=== PATIENT | female | born 1945 | race Caucasian/White ===

== ENCOUNTER 2024-06-09 08:14 | Inpatient (IN) ==
--- OUTSIDE RECORDS SUMMARY | 2024-06-09 08:22 | External Medical Summary | Summary of Care ---
Author Name Unknown Organization [facility] Address [address] [place] [address] Phone [phone] Care Team Providers Care Refined Syrup Operator Name Role Phone Felix Chavez DO Primary Care Provider [phone] Reason for Visit * Reason Comments Follow Up Pt is here for rameshamelia apoorva checkup and has questions about her parkinson's. Encounter Details Date Type Department Care Team (Late st Contact Info) Description 04/22/2024 9:20 AM EST Office Visit Family Practice [facility] [place] [address] [facility] [place] [address] Felix [facility]avez [facility] [address] [facility] [address] IPMN (intraductal papillary mucinous neoplasm)*; Screening for depression; Parkinson's disease without fluctuating manifestations, unspecified whether dyskinesia present (HCC); Problem with family member being ill Allergies Active Allergy Reactions Criticality Noted Date Comments Penicillins Hives High 05/05/2001 documented as of this encounter (statuses as of 04/22/2024) Medications VITAMIN C 500 MG PO CAPS 1 tablet daily Activ e Calcium Carb-Cholecalcifer ol 600-800 MG-UNIT Oral Tablet Take 1 Tablet by mouth in the morning. Active B Complex-C (SUPER B COMPLEX/VITAMIN C) TABS Take 1 Tab by mouth daily. Active Darling 3 1000 MG Oral Capsule Take by mouth . A ctive Multi-Day Oral Tablet Take by mouth 1 Tablet in the morning. Active Probiotic Acidophilus BioBeads Oral Capsule Take by mouth 1 Capsule . Active Diclofenac Sodium 1 % External Gel (Voltaren)Indicati ons:Greater trochanteric bursitis of right hip,Hip pain, right Apply 2 g topically to affected area 3 times a day as needed for Pain, Moderate or Pain, Severe. 100 g 3 05/19/19 24 Active Additional Information Patient not taking.Reported on 04/22/2024 Carbidopa-Levodopa ER 25-100 MG Oral Tablet Extended Release (Sinemet CR)Indications:Par kinson's disease with dyskinesia and fluctuating manifestations (HCC) TAKE TWO TABLETS BY MOUTH AT 6:30AM AND 11:30AM. TAKE ONE TABLET BY MOUTH AT 4:30PM AND 9:30PM. 180 Tablet 5 03/29/20 24 Active documented as of this encounter (statuses as of 04/22/2024) Active Problems Problem Noted Date Diagnosed Date Problem with family member being ill 04/22/2024 Parkinson's disease 03/17/2018 IPMN (intraductal papillary mucinous neoplasm) 0 09/07/2017 documented as of this encounter (statuses as of 04/22/2024) Resolved Problems Problem Noted Date Diagnosed Date Resolved Date Injury of right ankle 10/17/20192022 Encounter for examination fo r normal comparison and control in clinical research program 06/22/2017 12/05/2019 Overview (08/20/2020): DO NOT DELETE [facility] DETECT Study: Project # [id number], Residential Sales Representative: Reid Dacosta, PhD. SUMMARY: Goal: Establish test characteristics (sensitivity, specificity, PPV, NPV) of a circulating tumor DNA (ctDNA)-based test for cancer. Hypothesis: Circulating tumor DNA (ctDNA) and elevated protein biomarkers (together, the marker panel) can be detected in asymptomatic individuals with early cancer. Specific Aim 1: Determine the prevalence of a positive marker panel test in a prospective clinical cohort of 10,000 asymptomatic women ages 65 to 75 years. Specific Aim 2: Determine the sensitivity, specificity, positive predictive value (PPV) and negative predictive value (NPV) of a marker panel test to identify histologically proven cancers that develop within 5-years of the marker panel evaluation. CONTACTS: During normal business hours, contact study staff at ; after hours Residential Sales Representative via the [facility] extractor operator solvent process . Please contact study team before resolving/deleting from patients problem list. Study phone number: [phone]. Diagnosis changed due to Research Module. Go to Snapshot for study details. Encounter for examination fo r normal comparison and control in clinical research program 06/22/2017 01/02/2022 Overview (08/20/2020): DO NOT DELETE - [facility] DETECT Study: Project # [id number], Residential Sales Representative: Jim Gracia, MS, MPH. SUMMARY: Goal: Establish test characteristics (sensitivity, specificity, PPV, NPV) of a circulating tumor DNA (ctDNA)-based test for cancer. - Hypothesis: Circulating tumor DNA (ctDNA) and elevated protein biomarkers (together, the marker panel) can be detected in asymptomatic individuals with early cancer. - Specific Aim 1: Determine the prevalence of a positive marker panel test in a prospective clinical cohort of 10,000 asymptomatic women ages 65 to 75 years. - Specific Aim 2: Determine the sensitivity, specificity, positive predictive value (PPV) and negative predictive value (NPV) of a marker panel test to identify histologically proven cancers that develop within 5-years of the marker panel evaluation. - CONTACTS: During normal business hours, contact study staff at ; after hours Residential Sales Representative via the [facility] hospital extractor operator solvent process . - Please contact study team before resolving/deleting from patients problem list. Study phone number: [phone]. Diagnosis changed due to Research Module. Go to Snapshot for study details. documented as of this encounter (statuses as of 04/22/2024) Immunizations Name Administration Dates Next Due COVID-19 mRNA, LNP-s, No Pre serve, 2-Dose Series (Pfizer) 07/12/2020,06/15/2020 Pneumococcal Conjugate Vacc, 13 Valent (Prevnar) 09/07/2017 Pneumococcal Polysaccharide PPV23 (Pneumovax) 05/06/2012 Seasonal Influenza Vac., MDV , IM, 0.5 mL (Fluzone) 02/22/2014,02/08/2013,05/14/2012 Seasonal Influenza, High Dos e, Trivalent, PF, IM (Fluzone HD) 02/16/2024 Seasonal Influenza, PF, 6 M & above, IM , (FluLaval or Fluzone) 03/17/2018 Seasonal Influenza, Quadriva lent Hd (Fluzone Hd) 03/03/2023,03/18/2022,05/24/2021 Seasonal Influenza, Quadriva lent Hd, 65+ Yrs 02/09/2020 Seasonal Influenza, Quadriva lent, No Preserve, IM 01/21/2016,04/05/2015 Seasonal Influenza, Trivalen t, Adjuvanted, 65+ YRS, PF, (Fluad) 04/04/2019 TDAP (age 10 and older)(Boostrix) 05/14/2012 documented as of this encounter Social History Tobacco Use Types Packs/Day Years Used Date Smoking Tobacco: Former Cigarettes 1 4 0 05/04/1963 - 05/04/1967 Smokeless Tobacco: Never Tobacco Cessation:Counseling Given: Not Answered Comments:Quit after college Alcohol Use Standard Drinks/Week Comments Yes 0 (1 standard drink = 0.6 oz pur e alcohol) 2 glasses of wine/night PHQ-2 Answer Date Recorded PHQ Adult Total Score 0 04/22/2024 Hunger Vital Sign Answer Date Recorded Worried About Running Out of Food in the Last Ye ar Not on file 02/11/2023 Within the past 12 months, t he food you bought just didn't last and you didn't have money to get more. Never true 02/11/2023 Childcare Answer Date Recorded Do you feel overwhelmed with taking care of a child, family member or friend? No 02/11/2023 Does your family need help f inding childcare? (Household - for ages 0-17 years) Not on file 02/11/2023 Clothing Answer Date Recorded Have you been unable to get clothing when it was really needed? No 02/11/2023 Is your family able to get c lothes or diapers when needed? (Household - for ages 0-17 years) Not on file 02/11/2023 Personal Safety Answer Date Recorded Do you feel unsafe or have concerns for your saf ety? No 02/11/2023 Do you have concerns for you r family's safety? (Household - for ages 0-17 years) Not on file 02/11/2023 Utilities Answer Date Recorded Do you have trouble paying y our heating, water, or electric bill? No 02/11/2023 Is your family able to pay t he heat, water, or electric bill? (Household - for ages 0-17 years) Not on file 02/11/2023 Does your family have access to good internet? (Household - for ages 0-17 years) Not on file 02/11/2023 Employment Status Answer Date Recorded Are you unemployed or without regular income? No 02/11/2023 Does the household have a re gular source of income? (Household - for ages 0-17 years) Not on file 02/11/2023 Social Connections Answer Date Recorded How often do you feel lonely or isolated from th ose around you? Never 02/11/2023 Financial Resource Strain Answer Date R ecorded Do you have any trouble payi ng for your medications, or do you think you might in the future? No 02/11/2023 Does your family have troubl e paying for medicine? (Household - for ages 0-17 years) Not on file 02/11/2023 Transportation Needs Answer Date Record ed READ ONLY Do you have troubl e getting a ride to medical visits or work? Never True 02/11/2023 Does your family have a hard time getting a ride to doctors visits? (Household - for ages 0-17 years) Not on file 02/11/2023 Has lack of transportation k ept you from medical appointments, meetings, work, or from getting things needed for daily living? Check all that apply. (Adult - for ages 18 years and over) Not on file 02/11/2023 Do you (or your family) have trouble finding or paying for a ride (transportation)? (Household - for ages 0-17 years) Not on file 02/11/2023 Housing Stability Answer Date Recorded Do you currently live in a s helter or have no steady place to sleep at night? No 02/11/2023 READ ONLY Do you think you a re at risk of becoming homeless? No 02/11/2023 Does your family worry about paying for your home or becoming homeless? (Household - for ages 0-17 years) Not on file 1 Are you homeless or worried that you might be in the future? (Adult - for ages 18 years and over) Not on file Are you (or your family) dago eless or worried that you might be in the future? (Household - for ages 0-17 years) Not on file Food Insecurity Answer Date Recorded Do you need food for this week? No 02/11/2023 Are you able to get enough f ood for your family? (Household - for ages 0-17 years) Not on file 02/11/2023 Does your family need food t his week? (Household - for ages 0-17 years) Not on file 02/11/2023 Do you always have enough fo od for your family? (Household - for ages 0-17 years) Not on file 02/11/2023 Comments No Sex and Gender Information Value Date Recorded Sex Assigned at Female 02/11/2023 8:51 AM EDT Legal Sex Female 5:43 AM EST Gender Identity Female 02/11/2023 8:51 AM EDT Sexual Orientation Straight 02/11/2023 8: 51 AM EDT documented as of this encounter Last Filed Vital Signs Vital Sign Reading Time Taken Comments Blood Pressure 136/78 04/22/2024 9:41 AM EST Pulse 79 04/22/2024 9:41 AM EST Temperature 37.1 C (98.8 F) 04/22/2024 9:41 AM ES T Respiratory Rate - - Oxygen Saturation 92% 04/22/2024 9:41 AM EST Inhaled Oxygen Concentration - - Weight 66.4 kg (146 lb 6.4 oz) 04/22/2024 9:41 A M EST Height 157.5 cm (5' 2") 04/22/2024 9:41 AM EST Body Mass Index 26.78 04/22/2024 9:41 AM EST documented in this encounter Progress Notes * Felix Chavez, DO - 04/22/2024 9:47 AM EST Subjective: Camron Willingham is a 78 year old female. Chief Complaint Patient presents with Follow Up Pt is here for routine checkup and has questions about her parkinson's. HPI: Pt here in follow-up. Over the summer she seemed to be off more with PArkinson's. They decided to try Rytary but it just didn't work for her. She was tingling and nausea. Her hand tremor was worse in her R hand. Got switched back just in time for Thanksgiving. She is taking 2,2,2, and 1. HAs not had issues getting it. We discussed if she wants a second opinion I'm happy to send her wherever she wishes. Would probably need to travel Her is not doing well. HAs to have a replacement surgery for a stent. Her mood is effected by this. He tries to be cheerful. 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 Still has good friends and social interaction. Remeron helped some with her sleep and mood but made her constipated. It has been a 6 hour sleep for a long tme. Not miserable with sleep. Can fall back asleep sometimes after 4 AM dose of Sinemet. Does not want colonoscopy at this point, will consider in the future. Will schedule MRI 6 momnths from now. She is working with PT every 6 weeks. Avoids certain twisting. PMHx, meds, and allergies reviewed Patient Active Problem List Diagnosis IPMN (intraductal papillary mucinous neoplasm) Parkinson's disease (HCC) Problem with family member being ill Current Outpatient Medications Medication Sig Dispense Refill VITAMIN C 500 MG PO CAPS 1 tablet daily Calcium Carb-Cholecalciferol 600-800 MG-UNIT Oral Tablet Take 1 Tablet by mouth in the morning. B Complex-C (SUPER B COMPLEX/VITAMIN C) TABS Take 1 Tab by mouth daily. Darling 3 1000 MG Oral Capsule Take by mouth . Multi-Day Oral Tablet Take by mouth 1 Tablet in the morning. Probiotic Acidophilus BioBeads Oral Capsule Take by mouth 1 Capsule . Carbidopa-Levodopa ER 25-100 MG Oral Tablet Extended Release (Sinemet CR) TAKE TWO TABLETS BY MOUTHAT 6:30AM AND 11:30AM. TAKE ONE TABLET BY MOUTH AT 4:30PM AND 9:30PM. 180 Tablet 5 Diclofenac Sodium 1 % External Gel (Voltaren) Apply 2 g topically to affected area 3 times a day asneeded for Pain, Moderate or Pain, Severe. (Patient not taking: Reported on 04/22/2024) 100 g 3 No current facility-administered medications for this visit. Review of patient's allergies indicates: Allergen Reactions Penicillins Hives OBJECTIVE: BP 136/78 (BP Site: Left Arm, BP Position: Sitting, BP Cuff Size: Regular) | Pulse 79 | Temp 98.8 F (37.1 C) (Tympanic) | Ht 5' 2" (1.575 m) | Wt 146 lb 6.4 oz (66.4 kg) | SpO2 92% | BMI 26.78 kg/m | BSA 1.7 m Estimated body mass index is 26.78 kg/m as calculated from the following: Height as of this encounter: 5' 2" (1.575 m). Weight as of this encounter: 146 lb 6.4 oz (66.4 kg). BP Readings from Last 3 Encounters: 04/22/24 136/78 03/22/24 134/80 02/16/24 146/83 Wt Readings from Last 3 Encounters: 04/22/24 146 lb 6.4 oz (66.4 kg) 03/22/24 147 lb 4.8 oz (66.8 kg) 02/16/24 145 lb 6.4 oz (66 kg) ROS: Negative except for above PHYSICAL EXAM: General: alert, healthy, and no distress Head: Normocephalic, No masses, lesions, tenderness or abnormalities Heart: regular rate & rhythm, no murmur, and no gallops Lungs: chest symmetric with normal AP diameter, no chest deformities noted, no chest wall tenderness, lungs clear to auscultation ASSESSMENT/Plan IPMN (intraductal papillary mucinous neoplasm) (Primary) Screening for depression - DEPRESSION SCREENING PERFORMED Parkinson's disease without fluctuating manifestations, unspecified whether dyskinesia present (HCC) Problem with family member being ill I spent a total of 30 minutes on the date of service in preparation, delivery, and documentation ofthe care provided to this patient, excluding any time spent on the performance of any procedure or separately billable services. We discussed offers if she wants a second opinion or needs more Sinemet. We also discussed options to help her mood. Currently she is doing alright. The above was discussed and understanding was expressed. Felix Chavez DO documented in this encounter Nursing Notes * Raul Hinton CMA - 04/22/2024 9:44 AM EST The patient has been properly identified by confirmation of name and date of . Chief Complaint Patient presents with Follow Up Pt is here for routine checkup and has questions about her parkinson's. documented in this encounter Plan of Treatment Upcoming Encounters Date Type Department Care Team (Late st Contact Info) Description 09/20/2024 10:00 AM EDT Office Visit Neurology [facility] [address] [place] [address] Jean Claude Le MD [address] [place] [address] 11/28/2024 9:20 AM EDT Office Visit Family Practice [facility] [address] [place] [address] Felix Chavez DO [address] [facility] [place] [address] Scheduled Procedures Name Priority Associated Diagnoses Date/Ti me COLONOSCOPY FLEXIBLE PROXIMA L DIAGNOSTIC Recall History of colon polyps Family history of colon cancer Health Maintenance Due Date Last Done Comments Zoster Vaccines (1 of 2) 09/12/1993 Adult Wellness Visit 09/12/2009 DTap/Tdap Vaccines (2 - Td or Tdap) 05/14/2022 05/14/2012 COVID-19 Vaccine (3 - season) 2024 07/12/2020, 06/15/2020 Colonoscopy 05/11/2024 05/11/2019, 12/2019, 05/25/2013, Additional history exists Depression Screening 04/22/2025 04/22/2024, 09/27/19 20 DXA Scan 12/05/2027 12/04/2020, 02/03, 03/02/2013 Pneumococcal Vaccine: 65+ Years Completed 09/07/2017, 05/06/2012 RETIRED - COLONOSCOPY-EVERY 5 YRS AGES 18-100 Discontinued 05/11/2019, 05/11/2019, 05/25/2013, Additional history exists Influenza Vaccine (FLU shot) Completed 02/16/2024, 03/03/2023, 03/18/2022, Additional history exists HPV (Gardasil) Vaccine Aged Out No lo nger eligible based on patient's age to complete this topic Hepatitis B Vaccine Aged Out No longe r eligible based on patient's age to complete this topic MENINGOCOCCAL (MENACTRA/MENVEO) Aged Out No longer eligible based on patient's age to complete this topic documented as of this encounter Medical Devices Implanted Type Area Biofuels Manager Device Identifier Shelf Expiration Date Model / Serial / Lot Lens Intraoc 21.0 - [id number] - [id number] Implanted:Qty: 1 on 06/10/2016 by Efren Pham MD at [facility] Right: Eye [employer] 01/01/2021 [id number] / [id number] / [id number] Lens Intraoc 21.0 - [id number] - [id number] Implanted:Qty: 1 on 06/24/2016 by Efren Pham MD at [facility] Left: Eye [employer] 01/31/2021 [id number] / [id number] / [id number] documented as of this encounter Visit Diagnoses Diagnosis IPMN (intraductal papillary mucinous neoplasm)- Primary Neoplasm of unspecified nature of digestive system Screening for depression Parkinson's disease without fluctuating manifestations, unspecified whether dyskinesia present (HCC) Problem with family member being ill Other health problem within the family documented in this encounter Advance Directives * Full Code (Latest Code Status on File) Date Activated Date Inactivated Comments 06/24/2016 8:59 AM 06/24/2016 2:54 PM This order r eflects the patients wishes and were consensually agreed upon. * Full Code Date Activated Date Inactivated Comments 06/10/2016 8:07 AM 06/10/2016 3:41 PM This order ref lects the patients wishes and were consensually agreed upon. Care Teams Refined Syrup Operator Relationship Specialty Start Date End Date Felix Chavez DO [address] [place] [address] PCP - General Family Medicine 07/18/16 documented as of this encounter
--- OUTSIDE RECORDS SUMMARY | 2024-06-09 08:22 | External Medical Summary | Summary of Care ---
Author Name Unknown Organization [facility] Address [address] [place] [address] Phone [phone] Care Team Providers Care Classified Ad Taker Name Role Phone Felix Chavez DO Primary Care Provider [phone] Encounter Details Date Type Department Care Team (Late st Contact Info) Description 05/26/2024 Population Health External Data Unspecified Department Allergies Active Allergy Reactions Criticality Noted Date Comments Penicillins Hives High 05/05/2001 documented as of this encounter (statuses as of 05/26/2024) Medications VITAMIN C 500 MG PO CAPS 1 tablet daily Activ e Calcium Carb-Cholecalcifer ol 600-800 MG-UNIT Oral Tablet Take 1 Tablet by mouth in the morning. Active B Complex-C (SUPER B COMPLEX/VITAMIN C) TABS Take 1 Tab by mouth daily. Active [place] 3 1000 MG Oral Capsule Take by [...] as of this encounter (statuses as of 05/26/2024) Active Problems Problem Noted Date Diagnosed Date Problem with family member being ill 04/22/2024 Parkinson's disease 03/17/2018 IPMN (intraductal papillary mucinous neoplasm) 0 09/07/2017 documented as of this encounter (statuses as of 05/26/2024) Resolved Problems Problem Noted Date Diagnosed Date Resolved Date Injury of right ankle 10/17/20192022 Encounter for examination fo r normal comparison and control in clinical research program 06/22/2017 12/05/2019 Overview (08/20/2020): DO NOT DELETE [facility] DETECT Study: Project # [id number], Color Laboratory Technician: Reid Dacosta, PhD. SUMMARY: Goal: Establish test [...] contact study staff at ; after hours Color Laboratory Technician via the [facility] thickener operator . Please contact study team before resolving/deleting from patients problem list. Study phone number: [phone]. Diagnosis changed due to Research Module. Go to Snapshot for study details. Encounter for examination fo r normal comparison and control in clinical research program 06/22/2017 01/02/2022 Overview (08/20/2020): DO NOT DELETE [facility] DETECT Study: Project # [id number], Color Laboratory Technician: Jim Gracia, MS, MPH. SUMMARY: Goal: Establish [...] contact study staff at ; after hours Color Laboratory Technician via the [facility] thickener operator . - Please contact study team before resolving/deleting from patients problem list. Study phone number: [phone]. Diagnosis changed due to Research Module. Go to Snapshot for study details. documented as of this encounter (statuses as of 05/26/2024) Immunizations Name Administration Dates Next Due COVID-19 mRNA, LNP-s, No Pre serve, 2-Dose Series ([employer]) 07/12/2020,06/15/2020 Pneumococcal Conjugate Vacc, 13 Valent (Prevnar) [...] 0 [birth year]04/1965 - 05/04/1967 Smokeless Tobacco: Never Comments:Quit after college Alcohol Use Standard Drinks/Week Comments Yes 0 (1 standard drink = 0.6 oz pur e alcohol) 2 glasses of wine/night PHQ-2 Answer Date Recorded PHQ Adult Total Score 0 04/22/2024 Hunger Vital Sign Answer Date Recorded Worried About Running Out of Food in the Last Ye ar Not on file 04/22/2024 Within the past 12 months, t he food you bought just didn't last and you didn't have money to get more. Never true 04/22/2024 Childcare Answer Date Recorded Do you feel overwhelmed with taking care of a child, family member or friend? Yes 04/22/2024 Does your family need help f inding childcare? (Household - for ages 0-17 years) Not on file 04/22/2024 Clothing Answer Date Recorded Have you been unable to get clothing when it was really needed? No 04/22/2024 Is your family able to get c lothes or diapers when needed? (Household - for ages 0-17 years) Not on file 04/22/2024 Personal Safety Answer Date Recorded Do you feel unsafe or have concerns for your saf ety? No 04/22/2024 Do you have concerns for you r family's safety? (Household - for ages 0-17 years) Not on file 04/22/2024 Utilities Answer Date Recorded Do you have trouble paying y our heating, water, or electric bill? No 04/22/2024 Is your family able to pay t he heat, water, or electric bill? (Household - for ages 0-17 years) Not on file 04/22/2024 Does your family have access to good internet? (Household - for ages 0-17 years) Not on file 04/22/2024 Employment Status Answer Date Recorded Are you unemployed or without regular income? Ye s 04/22/2024 Does the household have a re gular source of income? (Household - for ages 0-17 years) Not on file 04/22/2024 Social Connections Answer Date Recorded How often do you feel lonely or isolated from th ose around you? Never 04/22/2024 Financial Resource Strain Answer Date R ecorded Do you have any trouble payi ng for your medications, or do you think you might in the future? Yes 04/22/2024 Does your family have troubl e paying for medicine? (Household - for ages 0-17 years) Not on file 04/22/2024 Transportation Needs Answer Date Record ed Do you have trouble getting a ride to medical visits or work? (Adult - for ages 18 years and over) Not on file 04/22/2024 Does your family have a hard time getting a ride to doctors visits? (Household - for ages 0-17 years) Not on file 04/22/2024 Has lack of transportation k ept you from medical appointments, meetings, work, or from getting things needed for daily living? Check all that apply. No 04/22/2024 Do you (or your family) have trouble finding or paying for a ride (transportation)? (Household - for ages 0-17 years) Not on file 04/22/2024 Housing Stability Answer Date Recorded Do you currently live in a s helter or have no steady place to sleep at night? No 04/22/2024 Do you think you are at risk of becoming homeless? (Adult - for ages 18 years and over) Not on file 04/22/2024 Does your family worry about paying for your home or becoming homeless? (Household - for ages 0-17 years) Not on file 1 06/23/2023 Are you homeless or worried that you might be in the future? No 04/22/2024 Are you (or your family) dago eless or worried that you might be in the future? (Household - for ages 0-17 years) Not on file Food Insecurity Answer Date Recorded Do you need food for this week? No 04/22/2024 Are you able to get enough f ood for your family? (Household - for ages 0-17 years) Not on file 04/22/2024 Does your family need food t his week? (Household - for ages 0-17 years) Not on file 04/22/2024 Do you always have enough fo od for your family? (Household - for ages 0-17 years) Not on file 04/22/2024 Comments No Sex and Gender Information Value Date Recorded Sex Assigned at Female 02/11/2023 8:51 AM EDT Legal Sex Female 5:43 AM EST Gender Identity Female 02/11/2023 8:51 AM EDT Sexual Orientation Straight 02/11/2023 8: 51 AM EDT documented as of this encounter Plan of Treatment Upcoming Encounters Date Type Department Care Team (Late st Contact Info) Description 09/20/2024 10:00 AM EDT Office Visit Neurology [facility] [address] [facility] [place] [address] Jean Claude Le MD [address] [place] [address] 11/28/2024 9:20 AM EDT Office Visit Family Practice [facility] [address] [facility] [place] [address] Felix Chavez DO [address] [facility] [place] [address] Scheduled Procedures Name Priority Associated Diagnoses Date/Ti [...] 05/25/2013, Additional history exists Depression Screening 04/22/2025 04/22/2024 DXA Scan 12/05/2027 12/04/2020, 02/03, 03/02/2013 Pneumococcal Vaccine: 50+ Years Completed 09/07/2017, 05/06/2012 RETIRED - COLONOSCOPY-EVERY [...] this encounter Medical Devices Implanted Type Area Solutions Developer Device Identifier Shelf Expiration Date Model / Serial / Lot Lens Intraoc 21.0 - [id number] - [id number] Implanted:Qty: 1 on 06/10/2016 by Efren Pham MD at OR [facility] Right: Eye [employer]CH [employer] LOMB 01/01/2021 [id number] / [id number] / [id number] Lens Intraoc 21.0 - [id number] - [id number] Implanted:Qty: 1 on 06/24/2016 by Efren Pham MD at OR [facility] Left: Eye BAUSCH [employer] LOMB 01/31/2021 [id number] / [id number] / [id number] documented as of this encounter Advance Directives * Full Code (Latest Code Status on File) Date Activated Date Inactivated Comments 06/24/2016 8:59 AM 06/24/2016 2:54 PM This order r eflects the patients wishes and were consensually agreed upon. * Full Code Date Activated Date Inactivated Comments 06/10/2016 8:07 AM 06/10/2016 3:41 PM This order ref lects the patients wishes and were consensually agreed upon. Care Teams Classified Ad Taker Relationship Specialty Start Date End Date Felix Chavez DO [address] [place] [address] PCP - General Family Medicine 07/18/16 documented as of this encounter
--- OUTSIDE RECORDS SUMMARY | 2024-06-09 08:22 | External Medical Summary | Summary of Care ---
Author Name Unknown Organization [facility] Address [address] [place] [address] Phone [phone] Care Team Providers Care Legal Summer Intern Name Role Phone Felix Chavez DO Primary Care Provider [phone] Reason for Visit * Reason Comments Follow Up Pt is here for rameshamelia apoorva checkup and has questions about her parkinson's. Encounter Details Date Type Department Care Team (Late st Contact Info) Description 04/22/2024 9:20 AM EST Office Visit Family Practice [facility] [place] [address] [facility] [place] [address] [facility] [address] IPMN (intraductal papillary mucinous neoplasm)*; Screening for depression; Parkinson's disease without fluctuating manifestations, unspecified whether dyskinesia present (HCC); Problem with family member being ill Allergies Active Allergy Reactions Criticality Noted Date Comments Penicillins Hives High 05/05/2001 documented as of this encounter (statuses as of 05/25/2024) Medications VITAMIN C 500 MG PO CAPS 1 tablet daily Activ e Calcium Carb-Cholecalcifer ol 600-800 MG-UNIT Oral Tablet Take 1 Tablet by mouth in the morning. Active B Complex-C (SUPER B COMPLEX/VITAMIN C) TABS Take 1 Tab by mouth daily. Active [place] 3 1000 MG Oral Capsule Take by [...] as of this encounter (statuses as of 05/25/2024) Active Problems Problem Noted Date Diagnosed Date Problem with family member being ill 04/22/2024 Parkinson's disease 03/17/2018 IPMN (intraductal papillary mucinous neoplasm) 0 09/07/2017 documented as of this encounter (statuses as of 05/25/2024) Resolved Problems Problem Noted Date Diagnosed Date Resolved Date Injury of right ankle 10/17/20192022 Encounter for examination fo r normal comparison and control in clinical research program 06/22/2017 12/05/2019 Overview (08/20/2020): DO NOT DELETE [facility] DETECT Study: Project # [id number], Product Distribution Specialist: Reid Dacosta, PhD. SUMMARY: Goal: Establish test [...] contact study staff at ; after hours Product Distribution Specialist via the [facility] telephone operator . Please contact study team before resolving/deleting from patients problem list. Study phone number: [phone]. Diagnosis changed due to Research Module. Go to Snapshot for study details. Encounter for examination fo r normal comparison and control in clinical research program 06/22/2017 01/02/2022 Overview (08/20/2020): DO NOT DELETE - [facility] DETECT Study: Project # [id number], Product Distribution Specialist: Jim Gracia, MS, MPH. SUMMARY: Goal: Establish [...] contact study staff at ; after hours Product Distribution Specialist via the [facility] telephone operator . - Please contact study team before resolving/deleting from patients problem list. Study phone number: [phone]. Diagnosis changed due to Research Module. Go to Snapshot for study details. documented as of this encounter (statuses as of 05/25/2024) Immunizations Name Administration Dates Next Due COVID-19 [...] TABS Take 1 Tab by mouth daily. [place] 3 1000 MG Oral Capsule Take by [...] 09/20/2024 10:00 AM EDT Office Visit Neurology [facility] [address] [facility] [place] [address] Jean Claude Le MD [address] [place] [address] 11/28/2024 9:20 AM EDT Office Visit Family Practice [facility] [address] [facility] [place] [address] Felix Chavez DO [address] [facility] [place] [address] Scheduled Procedures Name Priority Associated Diagnoses Date/Ti me COLONOSCOPY FLEXIBLE PROXIMA L DIAGNOSTIC Recall History of colon polyps Family history of colon cancer Health Maintenance Due Date Last Done Comments Zoster Vaccines (1 of 2) 09/12/1993 Adult Wellness Visit 09/12/2009 DTap/Tdap Vaccines (2 - Td or Tdap) 05/14/2022 05/14/2012 COVID-19 Vaccine ( - season) 2024 07/12/2020, 06/15/2020 Colonoscopy 05/11/2024 [...] this encounter Medical Devices Implanted Type Area Cleat Layer Device Identifier Shelf Expiration Date Model / Serial / Lot Lens Intraoc 21.0 - [id number] - [id number] Implanted:Qty: 1 on 06/10/2016 by Efren Pham MD at OR [facility] Right: Eye [employer] LOMB 01/01/2021 [id number] / [id number] / [id number] Lens Intraoc 21.0 - [id number] - [id number] Implanted:Qty: 1 on 06/24/2016 by Efren Pham MD at OR [facility] Left: Eye BAUSCH [employer] LOMB 01/31/2021 [id number] / [id number] / [id number] documented as of this encounter Visit Diagnoses [...] and were consensually agreed upon. Care Teams Legal Summer Intern Relationship Specialty Start Date End Date Felix Chavez DO [address] [place] [address] PCP - General Family Medicine 07/18/16 documented as of this encounter
--- OUTSIDE RECORDS SUMMARY | 2024-06-09 08:23 | External Medical Summary | Summary of Care ---
Author Name Unknown Organization [facility] Address [address] [place] [address] Phone [phone] Care Team Providers Care Color Artist Name Role Phone Felix Chavez Primary Care Provider [phone] Encounter Details Date Type Department Care Team (Late st Contact Info) Description 03/28/2024 Orders Only Outcomes Research Department [address] [place], [place] [id number] Tatiana Dong CHRA MyCode Research Other*[id number] Allergies Active Allergy Reactions Criticality Noted Date Comments Penicillins Hives High 05/05/2001 documented as of this encounter (statuses as of 03/28/2024) Medications VITAMIN C 500 MG PO CAPS 1 tablet daily Active Calcium Carb-Cholecalcifer ol 600-800 MG-UNIT Oral Tablet Take 1 Tablet by mouth in the morning. Active B Complex-C (SUPER B COMPLEX/VITAMIN C) TABS Take 1 Tab by mouth daily. Active [place] 3 1000 MG Oral Capsule Take by mouth . Active Multi-Day Oral Tablet Take by mouth 1 Tablet in the morning. Active Probiotic Acidophilus BioBeads Oral Capsule Take by mouth 1 Capsule . Active Diclofenac Sodium 1 % External Gel (Voltaren)Indicati ons:Greater trochanteric bursitis of right hip,Hip pain, right Apply 2 g topically to affected area 3 times a day as needed for Pain, Moderate or Pain, Severe. 100 g 3 4 Active [place]yt[place] 23.75-95 MG Oral Capsule Extended Release (Carbidopa-Levodop a ER)Indications:Par kinson's disease without dyskinesia, with fluctuating manifestations (HCC) Take 3 capsules per mouth 3 times a day at 6:00 a.m.-2:00 p.m.-9:30 p.m. 810 Capsule 3 4 Active documented as of this encounter (statuses as of 03/28/2024) Active Problems Problem Noted Date Diagnosed Date Parkinson's disease 03/17/2018 IPMN (intraductal papillary mucinous neoplasm) 0 09/07/2017 documented as of this encounter (statuses as of 03/28/2024) Resolved Problems Problem Noted Date Diagnosed Date Resolved Date Injury of right ankle 10/17/20192022 Encounter for examination fo r normal comparison and control in clinical research program 06/22/2017 12/05/2019 Overview (08/20/2020): DO NOT DELETE [facility] DETECT Study: Project # [id number], Cake Wringer: Reid Dacosta, PhD. SUMMARY: Goal: Establish test [...] contact study staff at ; after hours Cake Wringer via the [facility] wire coating operator metal . Please contact study team before resolving/deleting from patients problem list. Study phone number: [phone]. Diagnosis changed due to Research Module. Go to Snapshot for study details. Encounter for examination fo r normal comparison and control in clinical research program 06/22/2017 01/02/2022 Overview (08/20/2020): DO NOT DELETE [facility] DETECT Study: Project # [id number], Cake Wringer: Jim Gracia, MS, MPH. SUMMARY: Goal: Establish [...] contact study staff at ; after hours Cake Wringer via the [facility] hospital wire coating operator metal . - Please contact study team before resolving/deleting from patients problem list. Study phone number: [phone]. Diagnosis changed due to Research Module. Go to Snapshot for study details. documented as of this encounter (statuses as of 03/28/2024) Immunizations Name Administration Dates Next Due COVID-19 [...] glasses of wine/night PHQ-2 Answer Date Recorded PHQ-2 Score 2 10/02/2019 Hunger Vital Sign Answer Date Recorded Worried [...] 9:20 AM EST Office Visit Family Practice [facility] [address] [place] [address] Felix Chavez, DO [address] [facility] [place] [address] 09/20/2024 10:00 AM EDT Office Visit Neurology [facility] [address] [facility] [place] [address] Jean Claude Le MD [address] [place], [place] [id number] Scheduled Orders Name Type Priority Associated Diagnoses Orde r Schedule MYCODE SUBSEQUENT ADULT Lab Routine MyCode Research Other*[id number] Every 6 Months for 2 Occurrences starting 03/28/2024 until 04/17/2025 Scheduled Procedures Name Priority Associated Diagnoses Date/Ti me COLONOSCOPY FLEXIBLE PROXIMA L DIAGNOSTIC Recall History of colon polyps Family history of colon cancer Health Maintenance Due Date Last Done Comments Zoster Vaccines (1 of 2) 09/12/1993 Adult Wellness Visit 09/12/2009 Depression Screening 09/26/2020 09/27/2019 DTap/Tdap Vaccines (2 - Td or Tdap) 05/14/2022 05/14/2012 COVID-19 Vaccine ( - season) 2024 07/12/2020, 06/15/2020 Colonoscopy 05/11/2024 05/11/2019, 12/2019, 05/25/2013, Additional history exists DXA Scan 12/05/2027 12/04/2020, 02/03, 03/02/2013 Pneumococcal [...] this encounter Medical Devices Implanted Type Area Manager Medicare Marketing Device Identifier Shelf Expiration Date Model / Serial / Lot Lens Intraoc 21.0 - [id number] - [id number] Implanted:Qty: 1 on 06/10/2016 by Efren Pham MD at OR [facility] Right: Eye [employer]CH [employer] LOMB 01/01/2021 [id number] / [id number] / [id number] Lens Intraoc 21.0 - [id number] - [id number] Implanted:Qty: 1 on 06/24/2016 by Efren Pham MD at OR [facility] Left: Eye BAUSCH & LOMB 01/31/2021 [id number] / [id number] / [id number] documented as of this encounter Visit Diagnoses Diagnosis MyCode Research Other*[id number] documented in this encounter Advance Directives * [...] and were consensually agreed upon. Care Teams Color Artist Relationship Specialty Start Date End Date Felix Chavez DO [address] [place] [address] PCP - General Family Medicine 07/18/16 documented as of this encounter
--- OUTSIDE RECORDS SUMMARY | 2024-06-09 08:23 | External Medical Summary | Summary of Care ---
Author Name Unknown Organization [facility] Address [address] [place] [address] Phone [phone] Care Team Providers Care Atmospheric Physicist Name Role Phone Felix Moore DO Primary Care Provider [phone] Reason for Visit * Reason Comments Follow Up Encounter Details Date Type Department Care Team (Latest Contact Info) Description 03/22/2024 10:00 AM EST Office Visit Neurology [facility] [address] [place], [place] [id number] Jean Claude Le MD [address] [place] [address] Parkinson's disease without dyskinesia, with fluctuating manifestations (HCC)* Allergies Active Allergy Reactions Criticality Noted Date Comments Penicillins Hives High 05/05/2001 documented as of this encounter (statuses as of 03/22/2024) Medications VITAMIN C 500 MG PO CAPS 1 tablet daily Active Calcium Carb-Cholecalcifer ol 600-800 MG-UNIT Oral Tablet Take 1 Tablet by mouth in the morning. Active B Complex-C (SUPER B COMPLEX/VITAMIN C) TABS Take 1 Tab by mouth daily. Active Hope 3 1000 MG Oral Capsule Take by [...] Severe. 100 g 3 05/19/19 24 Active Rytary 23.75-95 MG Oral Capsule Extended Release (Carbidopa-Levodop a ER)Indications:Par kinson's disease without dyskinesia, with fluctuating manifestations (HCC) Take 3 capsules per mouth 3 times a day at 6:00 a.m.-2:00 p.m.-9:30 p.m. 810 Capsule 3 03/22/20 24 Active Mirtazapine 15 MG Oral Tablet (Remeron)Indicatio ns:Primary insomnia Take 1 Tablet by mouth at bedtime. 30 Tablet 5 09/16/19 24 024 Discontin ued(Medic ation List Clean Up) Carbidopa-Levodopa ER 25-100 MG Oral Tablet Extended Release (Sinemet CR)Indications:Par kinson's disease (HCC),Drug-induced nausea and vomiting TAKE TWO TABLETS BY MOUTH AT 6:30AM AND 11:30AM. TAKE ONE TABLET BY MOUTH AT 4:30PM AND 9:30PM. 180 Tablet 5 02/12/20 24 024 Discontin ued(Medic ation/Dos e Changed) documented as of this encounter (statuses as of 03/22/2024) Active Problems Problem Noted Date Diagnosed Date Parkinson's disease 03/17/2018 IPMN (intraductal papillary mucinous neoplasm) 0 09/07/2017 documented as of this encounter (statuses as of 03/22/2024) Resolved Problems Problem Noted Date Diagnosed Date Resolved Date Injury of right ankle 10/17/20192022 Encounter for examination fo r normal comparison and control in clinical research program 06/22/2017 12/05/2019 Overview (08/20/2020): DO NOT DELETE [facility] [place] DETECT Study: Project # [id number], Seafood Clerk: Reid Dacosta, PhD. SUMMARY: Goal: Establish test [...] contact study staff at ; after hours Seafood Clerk via the [facility] well reactivator operator . Please contact study team before resolving/deleting from patients problem list. Study phone number: [phone]. Diagnosis changed due to Research Module. Go to Snapshot for study details. Encounter for examination fo r normal comparison and control in clinical research program 06/22/2017 01/02/2022 Overview (08/20/2020): DO NOT DELETE - [facility] [place] NITA Study: Project # [id number], Seafood Clerk: Jim Gracia, MS, MPH. SUMMARY: Goal: Establish [...] contact study staff at ; after hours Seafood Clerk via the [facility] hospital well reactivator operator . - Please contact study team before resolving/deleting from patients problem list. Study phone number: [phone]. Diagnosis changed due to Research Module. Go to Epoq for study details. documented as of this encounter (statuses as of 03/22/2024) Immunizations Name Administration Dates Next Due COVID-19 [...] y our heating, water, or electric bill? (Adult - for ages 18 years and over) Not on file 02/12/2024 Is your family able to pay t he heat, water, or electric bill? (Household - for ages 0-17 years) Not on file 02/12/2024 Does your family have access to good internet? (Household - for ages 0-17 years) Not on file 02/12/2024 Employment Status Answer Date Recorded Are you unemployed or without regular income? No 02/11/2023 Does the household have a re gular source of income? (Household - for ages 0-17 years) Not on file 02/11/2023 Social Connections Answer Date Recorded How often do you feel lonely or isolated from those around you? (Adult - for ages 18 years and over) Not on file 02/12/2024 Financial Resource Strain Answer Date R ecorded [...] Sign Reading Time Taken Comments Blood Pressure 134/80 03/22/2024 9:59 AM EST Pulse 117 03/22/2024 9:59 AM EST Temperature 36.1 C (97 F) 03/22/2024 9:59 AM EST Respiratory Rate 16 03/22/2024 9:59 AM EST Oxygen Saturation 96% 03/22/2024 9:59 AM EST Inhaled Oxygen Concentration - - Weight 66.8 kg (147 lb 4.8 oz) 03/22/2024 9:59 A M EST Height - - Body Mass Index 26.94 11/13/2023 10:00 AM EDT documented in this encounter Progress Notes * Jean Claude Le MD - 03/22/2024 10:08 AM EST 03/22/2024 10:11 AM Camron Maulik 78 year old female REF: ROSE MOORE [address] [place] [address] (office) [phone] (fax) Asked by Felix Moore DO to render opinion regarding treatment Parkinson's CC: Chief Complaint Patient presents with Follow Up HPI: The patient was last seen 6 months ago for her Parkinson's. She is now having any condition for almost 9 years. We continued to have her on slow release 50/200 at 6:30 a.m. and 11:30 a.m. and 25/100 at 4:30 p.m. and 9:00 p.m.. Her last carbidopa levodopa was 3-1/2 hours ago. She has no hallucin ations. We held off with adding rasagiline for now. She was unable to tolerate entacapone. We have not tried her on Rytary yet. Her lumbar regions is still hurtful. Cannot do core exercises. Pain on the R side. Had PT once a month. 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 Steroid shots were like a miracle for her. Shehas noticed overall increase in the tremors. Also notices some difficulty with going upstairs, getsfatigued easily. Occasional word-finding difficulties but no major cognitive issues. PAST MEDICAL HISTORY: Patient Active Problem List Diagnosis Date Noted Parkinson's disease (HCC) [G20.A1] 03/17/2018 IPMN (intraductal papillary mucinous neoplasm) [D49.0] 09/07/2017 MEDICATIONS: Current Outpatient Medications Medication Sig Dispense Refill VITAMIN C 500 MG PO CAPS 1 tablet daily Calcium Carb-Cholecalciferol 600-800 MG-UNIT Oral Tablet Take 1 Tablet by mouth in the morning. B Complex-C (SUPER B COMPLEX/VITAMIN C) TABS Take 1 Tab by mouth daily. Hope 3 1000 MG Oral Capsule Take by mouth . Multi-Day Oral Tablet Take by mouth 1 Tablet in the morning. Probiotic Acidophilus BioBeads Oral Capsule Take by mouth 1 Capsule . Diclofenac Sodium 1 % External Gel (Voltaren) Apply 2 g topically to affected area 3 times a day asneeded for Pain, Moderate or Pain, Severe. 100 g 3 Carbidopa-Levodopa ER 25-100 MG Oral Tablet Extended Release (Sinemet CR) TAKE TWO TABLETS BY MOUTHAT 6:30AM AND 11:30AM. TAKE ONE TABLET BY MOUTH AT 4:30PM AND 9:30PM. 180 Tablet 5 Mirtazapine 15 MG Oral Tablet (Remeron) Take 1 Tablet by mouth at bedtime. 30 Tablet 5 No current facility-administered medications for this visit. ALLERGIES: Review of patient's allergies indicates: Allergen Reactions Penicillins Hives Social History Socioeconomic History Marital status: Spouse name: Not on file Number of children: Not on file Years of education: Not on file Highest education level: Not on file Occupational History Not on file Tobacco Use Smoking status: Former Current packs/day: 0.00 Average packs/day: 1 pack/day for 4.0 years (4.0 ttl pk-yrs) Types: Cigarettes Start date: 05/04/1963 Quit date: 05/04/1967 Years since quittin.9 Smokeless tobacco: Never Tobacco comments: Quit after college Vaping Use Vaping status: Never Used Substance and Sexual Activity Alcohol use: Yes Comment: 2 glasses of wine/night Drug use: No Sexual activity: Yes Partners: Male Other Topics Concern Not on file Social History Narrative Exercises with walking or jogging 5 tmes/week. Good dietary intake of calcium with occasional calcium/mag supplement. Takes Occuvite daily and some Zinc. Gardens in Summer. Social Needs Financial Resource Strain: Low Risk (02/11/2023) Financial Resource Strain Do you have any trouble paying for your medications, or do you think you might in the future? (Adult - for ages 18 years and over): No Does your family have trouble paying for medicine? (Household - for ages 0-17 years): Not on file Food Insecurity: No Food Insecurity (02/11/2023) Food Insecurity Do you need food for this week? (Adult - for ages 18 years and over): No Are you able to get enough food for your family? (Household - for ages 0-17 years): Not on file Does your family need food this week? (Household - for ages 0-17 years): Not on file Do you always have enough food for your family? (Household - for ages 0-17 years): Not on file Transportation Needs: No Transportation Needs (02/11/2023) Transportation Needs Do you have trouble getting a ride to medical visits or work? (Adult - for ages 18 years and over):Never True Does your family have a hard time getting a ride to doctors visits? (Household - for ages 0-17 years): Not on file Has lack of transportation kept you from medical appointments, meetings, work, or from getting things needed for daily living? Check all that apply. (Adult - for ages 18 years and over): Not on file Do you (or your family) have trouble finding or paying for a ride (transportation)? (Household - for ages 0-17 years): Not on file Social Connections: Unknown (02/12/2024) Social Connections How often do you feel lonely or isolated from those around you? (Adult - for ages 18 years and over): Not on file Housing Stability: Low Risk (02/11/2023) Housing Stability Do you currently live in a fci or have no steady place to sleep at night? (Adult - for ages 18 years and over): No Do you think you are at risk of becoming homeless? (Adult - for ages 18 years and over): No Does your family worry about paying for your home or becoming homeless? (Household - for ages 0-17 years): Not on file Are you homeless or worried that you might be in the future? (Adult - for ages 18 years and over): Not on file Are you (or your family) homeless or worried that you might be in the future? (Household - for ages0-17 years): Not on file Occupation: HIV risk factors: None FAMILY HISTORY Family History Problem Relation Name Age of Onset Cancer Mother colon in 70's/pancreatic cancer Eye Problems Mother wet macular degeneration Eye Problems Grandmother (Maternal) cataracts Family Status Relation Status Mo (Not Specified) MGMA (Not Specified) REVIEW OF SYSTEMS: The patient denies new cardiac, lung, kidney, liver, skin, thyroid, bladder, or digestive problems.The patient also denies acute changes in hearing or vision. Otherwise, all other systems are negative or as noted above. BP 134/80 | Pulse 117 | Temp 36.1 C (97 F) (Tympanic) | Resp 16 | Wt 66.8 kg (147 lb 4.8 oz) | SpO2 96% | BMI 26.94 kg/m | BSA 1.71 m The patient is a 78 year old female who is well developed and appears to be their stated age. NEUROLOGIC EXAMINATION: Mental status: Intact higher integrative functions. Orientated to person, place, and time. Recent and remote memory functions are intact. Attention, concentration, language, and fund of knowledge arenormal. Judgment and insight are intact. Mood and affect are normal. No hypomimia or hypophonia no hypokinetic dysarthria. Right hand prominent resting tremor slow frequency and medium amplitude. No significant cogwheeling rigidity on exam. When she ambulates there is decreased arm swing on the Right. Turns are still good. No significant camptocormia and good postural stability. IMPRESSION: The patient has suboptimal controlled tremor dominant Parkinson's with some motor fluctuations in between doses. He would benefit from a switch to Rytary. RECOMMENDATIONS: Will put her on Rytary 23.75/95 milligram capsules 3 capsules 3 times a day at 6:00 a.m.-2:00 p.m.-9:30 p.m. Possible further dose increase as per patient's response. Next f/u in 6 months. Thank-you for letting me participate in the care of this patient. Jean Claude Le MD Neurology [place] [address] [address] [place] [address] Please send copy to requesting physician, Felix Moore DO documented in this encounter Nursing Notes * Carolyne Neville MED ASSIST - 03/22/2024 9:58 AM EST Chief Complaint Patient presents with Follow Up documented in this encounter Plan of Treatment Upcoming Encounters Date Type Department Care Team (Late st Contact Info) Description 04/22/2024 9:20 AM EST Office Visit Family Practice [place] [address] Felix Moore DO [address] [place] [address] 09/20/2024 10:00 AM EDT Office Visit Neurology [facility] [place] [address] [place] [address] Jean Claude Le MD [address] [place] [address] Scheduled Procedures Name Priority Associated Diagnoses Date/Ti [...] this encounter Medical Devices Implanted Type Area Conservation Officer Device Identifier Shelf Expiration Date Model / Serial / Lot Lens Intraoc 21.0 - [id number] - [id number] Implanted:Qty: 1 on 06/10/2016 by Efren Pham MD at [facility] Right: Eye [employer] 01/01/2021 [id number] / [id number] / [id number] Lens Intraoc 21.0 - [id number] - [id number] Implanted:Qty: 1 on 06/24/2016 by Efren Pham MD at [facility] Left: Eye [employer]OM[employer] 01/31/2021 [id number] / [id number] / [id number] documented as of this encounter Visit Diagnoses Diagnosis Parkinson's disease without dyskinesia, with fluctuating manifestations (HCC)- Primary documented in this encounter Advance Directives * [...] and were consensually agreed upon. Care Teams Atmospheric Physicist Relationship Specialty Start Date End Date Felix Moore DO [address] [place] [address] PCP - General Family Medicine 07/18/16 documented as of this encounter"
--- OUTSIDE RECORDS SUMMARY | 2024-06-09 08:23 | External Medical Summary | Summary of Care ---
Author Name Unknown Organization [facility] Address [address] [place] [address] Phone [phone] Care Team Providers Care Principal Account Clerk Name Role Phone Felix Chavez DO Primary Care Provider [phone] Reason for Visit * Reason Onset Date Comments Advice 03/28/2024 Mimi pt medic ation questions Encounter Details Date Type Department Care Team (Late st Contact Info) Description 03/28/2024 Telephone Neurology [facility] [address] [place], [place] [id number] Services, Scheduling [address] [place] [address] Advice (Mimi pt medication questions) Allergies Active Allergy Reactions Criticality Noted Date Comments Penicillins Hives High 05/05/2001 documented as of this encounter (statuses as of 03/29/2024) Medications VITAMIN C 500 MG PO CAPS 1 tablet daily Active Calcium Carb-Cholecalcifer ol 600-800 MG-UNIT Oral Tablet Take 1 Tablet by mouth in the morning. Active B Complex-C (SUPER B COMPLEX/VITAMIN C) TABS Take 1 Tab by mouth daily. Active Hudson 3 1000 MG Oral Capsule Take by [...] Moderate or Pain, Severe. 100 g 3 Active Rytary 23.75-95 MG Oral Capsule Extended Release (Carbidopa-Levodop a ER)Indications:Par kinson's disease without dyskinesia, with fluctuating manifestations (HCC) Take 3 capsules per mouth 3 times a day at 6:00 a.m.-2:00 p.m.-9:30 p.m. 810 Capsule 3 4 Active documented as of this encounter (statuses as of 03/29/2024) Active Problems Problem Noted Date Diagnosed Date Parkinson's disease 03/17/2018 IPMN (intraductal papillary mucinous neoplasm) 0 09/07/2017 documented as of this encounter (statuses as of 03/29/2024) Resolved Problems Problem Noted Date Diagnosed Date Resolved Date Injury of right ankle 10/17/20192022 Encounter for examination fo r normal comparison and control in clinical research program 06/22/2017 12/05/2019 Overview (08/20/2020): DO NOT Who Can Fix My CarTE [email or web address] NITA Study: Project # [id number], Yard Coupler: Reid Dacosta, PhD. SUMMARY: Goal: Establish test [...] contact study staff at ; after hours Yard Coupler via the [facility] nicking machine operator . Please contact study team before resolving/deleting from patients problem list. Study phone number: [phone]. Diagnosis changed due to Research Module. Go to Snapshot for study details. Encounter for examination fo r normal comparison and control in clinical research program 06/22/2017 01/02/2022 Overview (08/20/2020): DO NOT DELETE - [email or web address] DETECT Study: Project # [id number], Yard Coupler: Jim Gracia, MS, MPH. SUMMARY: Goal: Establish [...] contact study staff at ; after hours Yard Coupler via the [facility] hospital nicking machine operator . - Please contact study team before resolving/deleting from patients problem list. Study phone number: [phone]. Diagnosis changed due to Research Module. Go to Snapshot for study details. documented as of this encounter (statuses as of 03/29/2024) Immunizations Name Administration Dates Next Due COVID-19 mRNA, LNP-s, No Pre serve, 2-Dose Series ([employer]) 07/12/2020,06/15/2020 Pneumococcal Conjugate Vacc, 13 Valent (Prevnar) [...] AM EDT documented as of this encounter Miscellaneous Notes * Telephone Encounter - Chante Cross LPN - 03/28/2024 1:09 PM EST Spoke with patient She will try to take ;less today and touch base with me tomorrow. * Telephone Encounter - Terrie Mendoza OSA - 03/28/2024 1:06 PM EST Pt called to return Chante's call. * Telephone Encounter - Ebony Gonzales OSA - 03/28/2024 10:51 AM EST Neuroscience Phone Call Form- Requested Information from caller: Who is calling patient Provider patient is established with: Chas Cross What is the concern or issue they are having: pt calling back Any additional details to add: no Phone number for nurse to call back: [phone] Are forms needed? no * Telephone Encounter - Chante Cross LPN - 03/28/2024 10:17 AM EST Message left for patient to return call * Telephone Encounter - Chante Cross LPN - 03/28/2024 9:54 AM EST Spoke with patient She is reporting that the rytary isn't working as well as her old medication She feels that her hands are affected, hand weakness, tingling, doesn't have strength to participant administrator objects She feels that the medication is only working for 5 hours in between and she feels tipsy Her previous dose was sinemet ER 25/100 mg TAKE TWO TABLETS BY MOUTH AT 6:30AM AND 11:30AM. TAKE ONE TABLET BY MOUTH AT 4:30PM AND 9:30PM. Her current dose of rytary 23.75-95 MG 3 capsules t 6:00 a.m.-2:00 p.m.-9:30 p.m She wouldn't mind going back of the ER sinemet but take more doses * Telephone Encounter - Kianna Narayan OSA - 03/28/2024 8:58 AM EST Neuroscience Phone Call Form- Requested Information from caller: Who is calling patient Provider patient is established with: Mimi What is the concern or issue they are having: Pt started on Rytary 23.75-95 MG Oral Capsule Extended Release (Carbidopa-Levodopa ER) and states that her hands are weak and funny feeling. Says its not lasting as long. Was hoping to talk with Chante or someone in the office in regards to the medication for advice. Worried she's not getting enough of the drug or its not working effectively. Wants to see if it could be adjusted, or changed. States the medication is only lasting 5 hours. How long has the issue been going on: Any additional details to add: no Phone number for nurse to call back: [phone] Are forms needed? no Medication Refill? no Verify Pharmacy information is correct. Form to be used for established patients only (not new patients) Clinic has 24-48 hours to respond to caller. If caller is calling back before timeframe with any changes in condition/issues reported, update TEand re-route to appropriate pool If caller is calling back before timeframe- update TE- no need to re-route Peds Neurology Pool- Peds Neuro Treatment Plant Mechanic- [id number] (All messages get sent to the [facility]) Neurology Pool Numbers- [place] and [place] patients - follow normal process Ops req [facility] Neurology ([place])- [id number] Ops req [place] Neurology ([place]- [facility] and [facility] clinics Only)- [id number] Neurosurgery Pool Numbers- [place] patients- follow normal process Ops req Neurosurgery [facility] ([place])- [id number] Ops req Neurosurgery [facility] ([place] Only) [id number] documented in this encounter Plan of Treatment Upcoming Encounters Date Type Department Care Team (Late st Contact Info) Description 04/22/2024 9:20 AM EST Office Visit Family Practice [facility] [address] [place] [address] Felix Chavez, [address] [facility] [place] [address] 09/20/2024 10:00 AM EDT Office Visit Neurology [facility] [address] [facility] [place] [address] Jean Claude Le MD [address] [place] [address] Scheduled Procedures Name Priority Associated Diagnoses Date/Ti [...] this encounter Medical Devices Implanted Type Area Participant Administrator Device Identifier Shelf Expiration Date Model / Serial / Lot Lens Intraoc 21.0 - [id number] - [id number] Implanted:Qty: 1 on 06/10/2016 by Efren Pham MD at OR [facility] Right: Eye [employer] 01/01/2021 [id number] / [id number] / [id number] Lens Intraoc 21.0 - [id number] - [id number] Implanted:Qty: 1 on 06/24/2016 by Efren Pham MD at OR [facility] Left: Eye [employer]CH [employer]OM[employer] 01/31/2021 [id number] / [id number] / [id number] documented as of this encounter Advance Directives [...] and were consensually agreed upon. Care Teams Principal Account Clerk Relationship Specialty Start Date End Date Felix Chavez DO [address] [place] [address] PCP - General Family Medicine 07/18/16 documented as of this encounter
--- OUTSIDE RECORDS SUMMARY | 2024-06-09 08:23 | External Medical Summary | Summary of Care ---
Author Name Unknown Organization [facility] Address [address] [place] [address] Phone [phone] Care Team Providers Care Cost Control Analyst Name Role Phone Felix Chavez DO Primary Care Provider [phone] Reason for Visit * Reason Onset Date Comments Health Maintenance 01/29/2024 Encounter Details Date Type Department Care Team (Late st Contact Info) Description 01/29/2024 Telephone Family Practice [facility] [address] [facility] [place] [address] Felix Chavez DO [address] [facility] [address] Health Maintenance Allergies Active Allergy Reactions Criticality Noted Date Comments Penicillins Hives High 05/05/2001 documented as of this encounter (statuses as of 01/29/2024) Medications Medication Sig Dispensed Refills Start Date End Date Status VITAMIN C 500 MG PO CAPS 1 tablet daily Active Calcium Carb-Cholecalcifero l 600-800 MG-UNIT Oral Tablet Take 1 Tablet by mouth in the morning. Active B Complex-C (SUPER B COMPLEX/VITAMIN C) TABS Take 1 Tab by mouth daily. Active [place] 3 1000 MG Oral Capsule Take by mouth . Active Multi-Day Oral Tablet Take by mouth 1 Tablet in the morning. Active Probiotic Acidophilus BioBeads Oral Capsule Take by mouth 1 Capsule . Active Diclofenac Sodium 1 % External Gel (Voltaren)Indicatio ns:Greater trochanteric bursitis of right hip,Hip pain, right Apply 2 g topically to affected area 3 times a day as needed for Pain, Moderate or Pain, Severe. 100 g 3 05/19/2023 Active Additional Information Patient not taking.Reported on 09/16/2023 Mirtazapine 15 MG Oral Tablet (Remeron)Indication s:Primary insomnia Take 1 Tablet by mouth at bedtime. 30 Tablet 5 09/16/2023 Active Additional Information Patient not taking.Reported on 11/13/2023 Carbidopa-Levodopa ER 25-100 MG Oral Tablet Extended Release (Sinemet CR)Indications:Park inson's disease (HCC),Drug-induced nausea and vomiting TAKE TWO TABLETS BY MOUTH AT 6:30AM AND 11:30AM. TAKE ONE TABLET BY MOUTH AT 4:30PM AND 9:30PM. 180 Tablet 5 09/18/2023 Active documented as of this encounter (statuses as of 01/29/2024) Active Problems Problem Noted Date Diagnosed Date Parkinson's disease 03/17/2018 IPMN (intraductal papillary mucinous neoplasm) 0 09/07/2017 documented as of this encounter (statuses as of 01/29/2024) Resolved Problems Problem Noted Date Diagnosed Date Resolved Date Injury of right ankle 10/17/20192022 Encounter for examination fo r normal comparison and control in clinical research program 06/22/2017 12/05/2019 Overview: DO NOT DELETE [facility] DETECT Study: Project # [id number], Vending Machine Host/Hostess: Reid Dacosta, PhD. SUMMARY: Goal: Establish test [...] contact study staff at ; after hours Vending Machine Host/Hostess via the [facility] hospital entry table operator . Please contact study team before resolving/deleting from patients problem list. Study phone number: [phone]. Diagnosis changed due to Research Module. Go to Snapshot for study details. Encounter for examination fo r normal comparison and control in clinical research program 06/22/2017 01/02/2022 Overview: DO NOT DELETE - [facility] Study: Project # [id number], Vending Machine Host/Hostess: Jim Gracia, MS, MPH. SUMMARY: Goal: Establish [...] contact study staff at ; after hours Vending Machine Host/Hostess via the [facility] hospital entry table operator . - Please contact study team before resolving/deleting from patients problem list. Study phone number: [phone]. Diagnosis changed due to Research Module. Go to Snapshot for study details. documented as of this encounter (statuses as of 01/29/2024) Immunizations Name Administration Dates Next Due COVID-19 mRNA, LNP-s, No Pre serve, 2-Dose Series ([employer]) 07/12/2020,06/15/2020 Pneumococcal Conjugate Vacc, 13 Valent (Prevnar) 09/07/2017 Pneumococcal Polysaccharide PPV23 (Pneumovax) 05/06/2012 Seasonal Influenza, PF, 6 M & above, IM , (FluLaval or Fluzone) 03/17/2018 Seasonal Influenza, Quadriva lent Hd (Fluzone Hd) 03/03/2023,03/18/2022,05/24/2021 Seasonal Influenza, Quadriva lent Hd, 65+ Yrs 02/09/2020 Seasonal Influenza, Quadriva lent, No Preserve, IM 01/21/2016,04/05/2015 Seasonal Influenza, Trivalen t, (IIV3), with Preserv, (Fluzone) 02/22/2014,02/08/2013,05/14/2012 Seasonal Influenza, Trivalen t, Adjuvanted, 65+ YRS, [...] ages 0-17 years) Not on file 02/11/2023 Sex and Gender Information Value Date Recorded Sex Assigned at Female 02/11/2023 8:51 AM EDT Gender Identity Female 02/11/2023 8:51 AM EDT Sexual Orientation Straight 02/11/2023 8: 51 AM EDT Job Start Date Occupation Industry Not on file Not on file Not on file documented as of this encounter Miscellaneous Notes * Telephone Encounter - Lizzette Orlando LPN - 01/29/2024 1:38 PM EDT Care Gaps Comprehensive Care Outreach Last Office/Telemedicine Visit: 09/16/2023 (in office), Visit date not found (telemedicine) Next Office Visit: 04/22/2024 Hemoglobin AIC Results: No results found for: "HEMOGLOBIN A1C" BP Readings from Last 1 Encounters: 11/13/23 180/92 Reviewed Health Maintenance below: Health Maintenance Topic Date Due Zoster Vaccines (1 of 2) Never done Adult Wellness Visit Never done Depression Screening 09/26/2020 DTap/Tdap Vaccines (2 - Td or Tdap) 05/14/2022 Influenza Vaccine (FLU shot) (1) 01/03/2024 COVID-19 Vaccine (3 - season) 2024 Colonoscopy 05/11/2024 Awv Colon defer to pcp age Care Gap Outreach Action Taken: [employer] message sent documented in this encounter Plan of Treatment Upcoming Encounters Date Type Department Care Team (Late st Contact Info) Description 02/16/2024 4:00 PM EDT Office Visit Hematology/Oncology [facility] [place] [address] [facility] [place] [address] Rossy Valencia CRNP [address] [place] [address] 03/22/2024 10:00 AM EST Office Visit Neurology [facility] [address] [place] [address] Jean Claude Le MD [address] [place] [address] 04/22/2024 9:20 AM EST Office Visit Family Practice [facility] [address] [place] [address] Felix Chavez DO [address] [facility] [place] [address] Scheduled Procedures Name Priority Associated Diagnoses Date/Ti me COLONOSCOPY FLEXIBLE PROXIMA L DIAGNOSTIC Recall History of colon polyps Family history of colon cancer Health Maintenance Due Date Last Done Comments Zoster Vaccines (1 of 2) 09/12/1993 Adult Wellness Visit 09/12/2009 Depression Screening 09/26/2020 09/27/2019 DTap/Tdap Vaccines (2 - Td or Tdap) 05/14/2022 05/14/2012 COVID-19 Vaccine (3 - season) 2024 07/12/2020, 06/15/2020 Influenza Vaccine (FLU shot) (#1) 2024 03/03/2023, 03/18/2022, 05/24/2021, Additional history exists Colonoscopy 05/11/2024 05/11/2019, 12/2019, 05/25/2013, Additional history exists DXA Scan 12/05/2027 12/04/2020, 02/03, 03/02/2013 Pneumococcal Vaccine: 65+ Years Completed 09/07/2017, 05/06/2012 RETIRED - COLONOSCOPY-EVERY 5 YRS AGES 18-100 Discontinued 05/11/2019, 05/11/2019, 05/25/2013, Additional history exists HPV (Gardasil) Vaccine Aged Out No lo nger eligible based on patient's age to complete this topic Hepatitis B Vaccine Aged Out No longe r eligible based on patient's age to complete this topic MENINGOCOCCAL (MENACTRA/MENVEO) Aged Out No longer eligible based on patient's age to complete this topic documented as of this encounter Medical Devices Implanted Type Area Front Counter Attendant Device Identifier Shelf Expiration Date Model / Serial / Lot Lens Intraoc 21.0 - [id number] - [id number] Implanted:Qty: 1 on 06/10/2016 by Efren Pham MD at OR [facility] Right: Eye [employer] 01/01/2021 [id number] / [id number] / [id number] Lens Intraoc 21.0 - [id number] - [id number] Implanted:Qty: 1 on 06/24/2016 by Efren Pham MD at OR [facility] Left: Eye [employer] 01/31/2021 [id number] / [id number] / [id number] documented as of this encounter Advance Directives [...] and were consensually agreed upon. Care Teams Cost Control Analyst Relationship Specialty Start Date End Date Felix Chavez DO [address] [place] [address] PCP - General Family Medicine 07/18/16 documented as of this encounter
--- OUTSIDE RECORDS SUMMARY | 2024-06-09 08:23 | External Medical Summary | Summary of Care ---
Author Name Unknown Organization [facility] Address [address] [place] [address] Phone [phone] Care Team Providers Care Main Line Assembler Name Role Phone Felix Chavez DO Primary Care Provider [phone] Reason for Visit * Reason Onset Date Comments Advice 03/28/2024 Mimi pt medic ation questions Encounter Details Date Type Department Care Team (Late st Contact Info) Description 03/28/2024 Telephone Neurology [facility] [address] [place], [place] [id number] Services, Scheduling [address] [place] [address] Advice (Mimi pt medication questions) Allergies Active [...] Take 1 Tab by mouth daily. Active [place] 3 1000 MG Oral Capsule Take by [...] Severe. 100 g 3 05/19/19 24 Active Carbidopa-Levodopa ER 25-100 MG Oral Tablet Extended Release (Sinemet CR)Indications:Par kinson's disease with dyskinesia and fluctuating manifestations (HCC) TAKE TWO TABLETS BY MOUTH AT 6:30AM AND 11:30AM. TAKE ONE TABLET BY MOUTH AT 4:30PM AND 9:30PM. 180 Tablet 5 03/29/20 24 Active Rytary 23.75-95 MG Oral Capsule Extended Release (Carbidopa-Levodop a ER)Indications:Par kinson's disease without dyskinesia, with fluctuating manifestations (HCC) Take 3 capsules per mouth 3 times a day at 6:00 a.m.-2:00 p.m.-9:30 p.m. 810 Capsule 3 03/22/20 24 024 Discontin ued(Medic ation/Dos e Changed) [...] 06/22/2017 12/05/2019 Overview (08/20/2020): DO NOT DELETE [facility] DETECT Study: Project # [id number], Stud Driver: Reid Dacosta, PhD. SUMMARY: Goal: Establish test [...] contact study staff at ; after hours Stud Driver via the [facility] hospital pest control operator . Please contact study team before resolving/deleting from patients problem list. Study phone number: [phone]. Diagnosis changed due to Research Module. Go to Snapshot for study details. Encounter for examination fo r normal comparison and control in clinical research program 06/22/2017 01/02/2022 Overview (08/20/2020): DO NOT DELETE - [facility] NITA Study: Project # [id number], Stud Driver: Jim Gracia, MS, MPH. SUMMARY: Goal: Establish [...] contact study staff at ; after hours Stud Driver via the [facility] hospital pest control operator . - Please contact study team before resolving/deleting from patients problem list. Study phone number: [phone]. Diagnosis changed due to Research Module. Go to Snapshot for study details. documented as of this encounter (statuses as of 03/29/2024) Immunizations Name Administration Dates Next Due COVID-19 mRNA, LNP-s, No Pre serve, 2-Dose Series ([employer]) 07/12/2020,06/15/2020 Pneumococcal Conjugate Vacc, 13 Valent (Prevnar) [...] as of this encounter Miscellaneous Notes * Addendum Note - Jean Claude Payan MD - 03/29/2024 8:12 AM ESTAddended by: JEAN CLAUDE PAYAN on: 03/29/2024 08:12 AM Modules accepted: Orders * Telephone Encounter - Chante Cross LPN [...] Phone number for nurse to call back: [phone] Are forms needed? 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 no Medication Refill? no Verify Pharmacy information is correct. Form to be used for established patients only (not new patients) Clinic has 24-48 hours to respond to caller. If caller is calling back before timeframe with any changes in condition/issues reported, update TEand re-route to appropriate pool If caller is calling back before timeframe- update TE- no need to re-route [facility] Pool- [facility]- [id number] (All messages get sent to the [facility]) Neurology Pool Numbers- [place] and [place] patients - follow normal process Ops req [facility] Neurology ([place])- [id number] Ops req [place] [facility] ([place]- [facility] clinics Only)- [id number] Neurosurgery Pool Numbers- [place] patients- follow normal process Ops req Neurosurgery [facility] ([place])- [id number] Ops req Neurosurgery [facility] ([place] Only) [id number] documented in this encounter Plan of Treatment Upcoming Encounters Date Type Department Care Team (Late st Contact Info) Description 04/22/2024 9:20 AM EST Office Visit Family Practice [facility] [place] [address] [facility] [place] [address] Felix Chavez, [address] [place] [address] [address] 09/20/2024 10:00 AM EDT Office Visit Neurology [facility] [place] [address] [facility] [place] [address] Jean Claude Payan MD [address] [place] [address] Scheduled Procedures Name Priority Associated Diagnoses Date/Ti [...] this encounter Medical Devices Implanted Type Area Crayon Sawyer Device Identifier Shelf Expiration Date Model / Serial / Lot Lens Intraoc 21.0 - [id number] - [id number] Implanted:Qty: 1 on 06/10/2016 by Efren Pham MD at [facility] Right: Eye [employer] 01/01/2021 [id number] / [id number] / [id number] Lens Intraoc 21.0 - [id number] - [id number] Implanted:Qty: 1 on 06/24/2016 by Efren Pham MD at OR [facility] Left: Eye [employer]OM[employer] 01/31/2021 [id number] / [id number] / [id number] documented as of this encounter Visit Diagnoses Diagnosis Parkinson's disease with dyskinesia and fluctuating manifestations (HCC)- Primary documented in this [...] and were consensually agreed upon. Care Teams Main Line Assembler Relationship Specialty Start Date End Date Felix Chavez DO [address] [place] [address] PCP - General Family Medicine 07/18/16 documented as of this encounter
--- OUTSIDE RECORDS SUMMARY | 2024-06-09 08:23 | External Medical Summary | Summary of Care ---
Author Name Unknown Organization [facility] Address [address] [place] [address] Phone [phone] Care Team Providers Care Noise Abatement Engineer Name Role Phone Felix Chavez DO Primary Care Provider [phone] Reason for Visit * Reason Onset Date Comments Follow Up Medication Administration 02/16/2024 Flu an d/or Pneumo Inj Encounter Details Date Type Department Care Team (Late st Contact Info) Description 02/16/2024 4:00 PM EDT Office Visit Hematology/Oncology [facility] [address] [place] [address] Rossy Valecnia CRNP [address] [place] [address] Erythrocytosis*; Need for prophylactic vaccination and inoculation against influenza Allergies Active Allergy Reactions Criticality Noted Date Comments Penicillins Hives High 05/05/2001 documented as of this encounter (statuses as of 02/17/2024) Medications Medication Sig Dispensed Refills Start Date End Date Status VITAMIN C 500 MG PO CAPS 1 tablet daily Active Calcium Carb-Cholecalcifero l 600-800 MG-UNIT Oral Tablet Take 1 Tablet by mouth in the morning. Active B Complex-C (SUPER B COMPLEX/VITAMIN C) TABS Take 1 Tab by mouth daily. Active White Stone 3 1000 MG Oral Capsule Take by [...] AT 4:30PM AND 9:30PM. 180 Tablet 5 02/12/2024 Active documented as of this encounter (statuses as of 02/17/2024) Active Problems Problem Noted Date Diagnosed Date Parkinson's disease 03/17/2018 IPMN (intraductal papillary mucinous neoplasm) 0 09/07/2017 documented as of this encounter (statuses as of 02/17/2024) Resolved Problems Problem Noted Date Diagnosed Date Resolved Date Injury of right ankle 10/17/20192022 Encounter for examination fo r normal comparison and control in clinical research program 06/22/2017 12/05/2019 Overview: DO NOT DELETE [facility] DETECT Study: Project # [id number], Section Gang Worker: Reid Dacosta, PhD. SUMMARY: Goal: Establish test [...] contact study staff at ; after hours Section Gang Worker via the [facility] hospital keeler polygraph operator . Please contact study team before resolving/deleting from patients problem list. Study phone number: [phone]. Diagnosis changed due to Research Module. Go to Snapshot for study details. Encounter for examination fo r normal comparison and control in clinical research program 06/22/2017 01/02/2022 Overview: DO NOT DELETE - [facility] Study: Project # [id number], Section Gang Worker: Jim Gracia, MS, MPH. SUMMARY: Goal: Establish [...] contact study staff at ; after hours Section Gang Worker via the [facility] keeler polygraph operator . - Please contact study team before resolving/deleting from patients problem list. Study phone number: [phone]. Diagnosis changed due to Research Module. Go to Snapshot for study details. documented as of this encounter (statuses as of 02/17/2024) Immunizations Name Administration Dates Next Due COVID-19 mRNA, LNP-s, No Pre serve, 2-Dose Series ([email or web address]) 07/12/2020,06/15/2020 Pneumococcal Conjugate Vacc, 13 Valent (Prevnar) [...] on file documented as of this encounter Last Filed Vital Signs Vital Sign Reading Time Taken Comments Blood Pressure 146/83 02/16/2024 4:05 PM EDT Pulse 108 02/16/2024 4:05 PM EDT Temperature 36.4 C (97.6 F) 02/16/2024 4:05 PM ED T Respiratory Rate - - Oxygen Saturation 94% 02/16/2024 4:05 PM EDT Inhaled Oxygen Concentration - - Weight 66 kg (145 lb 6.4 oz) 02/16/2024 4:05 PM EDT Height - - Body Mass Index 26.59 11/13/2023 10:00 AM EDT documented in this encounter Patient Instructions * Patient Instructions* Ronel Ledezma LPN - 02/16/2024 4:18 PM EDT ~~PATIENT INSTRUCTIONS FOR FLU SHOT~~ Possible side effects of influenza vaccine, (flu shot), are usually mild and include: 1. Soreness or redness at injection site 2. Low grade fever 3. Body aches You may use Tylenol/Acetaminophen as needed for these symptoms. LET YOUR DOCTOR KNOW IMMEDIATELY IF YOU HAVE DIFFICULTY BREATHING OR SWALLOWING, EXPERIENCE ITCHINGOF FEET OR HANDS, HAVE SWELLING OF EYES, FACE OR INSIDE OF NOSE. documented in this encounter Progress Notes * Ronel Ledezma LPN - 02/16/2024 4:17 PM EDT PRE - ADMINISTRATION DOCUMENTATION Are you experiencing any cold symptoms or fever? No Have you had Guillain-Stockdale Syndrome (an illness that causes paralysis) within the last 6 weeks? No Have you had the flu shot in the past? YES Have you ever had a reaction to the flu shot? No Ronel Ledezma LPN, 02/16/2024 4:17 PM Immunization Administration Documentation Time Out Procedure Performed: Yes Patient Identified (Ask Name/Date of ): Yes Does the patient have a fever greater than 101 degrees today? No Patient allergic to latex? No VFC Stock: Yes, Does this patient qualify for immunization through the VFC program because he/she (check only one): Yes-is enrolled in Medicaid Immunization(s) verified: Yes, Immunization Name: Flu, VIS Sheet(s) given: Yes Verified Side and Site: Yes Verified Shot(s) with Parent(s)/Patient: Yes * Rossy Valencia CRNP - 02/16/2024 4:08 PM EDT Hematology/Oncology Outpatient Clinic note Dolores Varela [facility] [place] [address] Name: Camron Willingham Date: 02/16/2024 CHIEF COMPLAINT: Camron Willingham is a 78 year old female patient of MINI Palomino here today for f/u visit today. From Patient chart confirmed with patient. HEMATOLOGY/ONCOLOGY DIAGNOSIS: Erythrocytosis - resolved CURRENT TREATMENT: Observation HISTORY OF PRESENT ILLNESS: Patient with PMH of Parkinson's disease and IPMN. Mild erythrocytosis present since at least 2007 No abnormalities in other cell lines. LFTs WNL. Does take a MVI without iron. Has taken vitamin c oral supplement for many years. Patient's biggest complaint is daytime fatigue and loss of stamina. Sleeps 6 hours a night on average. Goes to bed at 9 and wakes up at 3 AM to urinate. Gets up and down then. Cannot always go back to sleep. She is tired during the day after this. Takes a nap after lunch. She says she tried Melatonin without success. Is not aware if she snores. Does at time wake up feeling SOB or that her heart is racing. Has a lot of stress in her life with her husbands dementia. Has many new responsibilities and has to monitor her husbands spending closely. Does not drink much water. Does not drink enough fluid during the day. Denies frequent headaches or blurry vision. Does not currently take a baby aspirin daily. Developed easy bruising. Denies numbness or tingling. Denies any history of VTE Denies night sweats. Denies unexplained weight loss. Denies aquagenic pruritus. Denies erythromelalgia. Denies early satiety. Denies abdominal pain or bloating. Patient is a nonsmoker. Denies hematuria. Does drink 1-2 glasses of wine in the evening. Has done this for many years. Patient with every other year pancreatic MRI screening per PCP for IPMN. Last from November 2022 showing normal liver. Due for next colonoscopy in 2024 d/t family and personal history. Mother with history of colon cancer. Passed of pancreatic cancer. HISTORY OF PRESENT ILLNESS: Camron Willingham is a 78 year old female with a history as outlined above. Currently here for f/u visit today. Patient feeling clinically well today. No complaints or concerns verbalized. Past Medical History: Diagnosis Date Menopause 1997 no HRT; Heel scan done in 1998 was good Past Surgical History: Procedure Laterality Date COLONOSCOPY, DIAGNOSTIC (RECTUM) 05/25/2013 COLONOSCOPY FLEXIBLE PROXIMAL DIAGNOSTIC performed by Noemi Dogde DO at ENDOSCOPY [facility] COLONOSCOPY, DIAGNOSTIC (RECTUM) 05/11/2019 adenomatous polyp, repeat 5 yrs/COLONOSCOPY FLEXIBLE PROXIMAL DIAGNOSTIC performed by Noemi Dodge DO at ENDOSCOPY [facility] PROCEDURE NEC wisdom teeth PARTIAL REMOVAL OF COLON Left pt reported bowel resection for "large colon polyp at age 58", rectosigmoid anastamosis identified on colonscopy REMOVE CATARACT, INSERT LENS PROSTH Right 06/10/2016 right EXTRACAPSULAR CATARACT REMOVAL WITH INTRAOCULAR LENS performed by Efren Pham MD at OR [facility] REMOVE CATARACT, INSERT LENS PROSTH Left 06/24/2016 left EXTRACAPSULAR CATARACT REMOVAL WITH INTRAOCULAR LENS performed by Efren Pham MD at OR [facility] US ARTHROCENT ASP &/OR INJ MAJOR JX/BURSA 07/27/2023 ARTHROCENTESIS MAJOR JOINT OR BURSA, ASPIRATION OR INJECTION, ULTRASOUND GUIDED performed by Luis Carlos Montes DO at OR [facility] Social History Socioeconomic History Marital status: Spouse name: Not on file Number of children: Not on file Years of education: Not on file Highest education level: Not on file Occupational History Not on file Tobacco Use Smoking status: Former Current packs/day: 0.00 Average packs/day: 1 pack/day for 4.0 years (4.0 ttl pk-yrs) Types: Cigarettes Start date: 05/04/1963 Quit date: 05/04/1967 Years since quittin.8 Smokeless tobacco: Never Tobacco comments: Quit after [...] and some Zinc. Gardens in Summer. Social Determinants of Health Financial Resource Strain: Low Risk (02/11/2023) Financial [...] Stability Do you currently live in a group home or have no steady place to sleep [...] - for ages0-17 years): Not on file Review of patient's allergies indicates: Allergen Reactions Penicillins Hives Current Outpatient Medications Medication Sig Dispense Refill VITAMIN C 500 MG PO CAPS 1 tablet daily Calcium Carb-Cholecalciferol 600-800 MG-UNIT Oral Tablet Take 1 Tablet by mouth in the morning. B Complex-C (SUPER B COMPLEX/VITAMIN C) TABS Take 1 Tab by mouth daily. White Stone 3 1000 MG Oral Capsule Take by mouth . Multi-Day Oral Tablet Take by mouth 1 Tablet in the morning. Probiotic Acidophilus BioBeads Oral Capsule Take by mouth 1 Capsule . Diclofenac Sodium 1 % External Gel (Voltaren) Apply 2 g topically to affected area 3 times a day asneeded for Pain, Moderate or Pain, Severe. (Patient not taking: Reported on 09/16/2023) 100 g 3 Mirtazapine 15 MG Oral Tablet (Remeron) Take 1 Tablet by mouth at bedtime. (Patient not taking: Reported on 11/13/2023) 30 Tablet 5 Carbidopa-Levodopa ER 25-100 MG Oral Tablet Extended Release (Sinemet CR) TAKE TWO TABLETS BY MOUTHAT 6:30AM AND 11:30AM. TAKE ONE TABLET BY MOUTH AT 4:30PM AND 9:30PM. 180 Tablet 5 No current facility-administered medications for this visit. REVIEW OF SYSTEMS: See HPI - otherwise negative OBJECTIVE: Filed Vitals: 02/16/24 1605 BP: 146/83 Pulse: 108 Temp: 36.4 C (97.6 F) TempSrc: Tympanic SpO2: 94% Weight: 66 kg (145 lb 6.4 oz) Wt Readings from Last 5 Encounters: 02/16/24 66 kg (145 lb 6.4 oz) 11/13/23 65 kg (143 lb 3.2 oz) 09/21/23 64 kg (141 lb 3.2 oz) 09/16/23 65.3 kg (144 lb) 02/25/23 65.8 kg (145 lb) PHYSICAL EXAM: General Appearance: Normal - Healthy appearing patient in no acute distress Lungs/Thorax: Normal respiratory effort Extremities: No edema Neurologic: Normal - Grossly intact LABS: Results for orders placed or performed in visit on 12/21/23 IRON SCREEN, INCLUDING TIBC Result Value Ref Range Iron 92 33 - 151 ug/dL Iron Binding Capacity 303 250 - 425 ug/dL Transferrin Saturation Percent 30 15 - 55 % FERRITIN Result Value Ref Range Ferritin 120 13 - 150 ng/mL CBC Result Value Ref Range WBC 6.58 4.00 - 10.80 K/uL RBC 4.55 3.85 - 5.15 M/uL HGB 14.7 12.0 - 15.3 g/dL HCT 45.2 36.0 - 45.2 % MCV 99.3 81.5 - 97.5 fL MCH 32.3 27.0 - 34.0 pg MCHC 32.5 32.0 - 36.0 g/dL RDW 13.5 11.5 - 15.5 % PLT 231 140 - 400 K/uL MPV 10.7 6.6 - 11.1 fL DIFFERENTIAL, AUTOMATED Result Value Ref Range WBC 6.58 4.00 - 10.80 K/uL Neutrophils % 56.8 40.0 - 75.0 % Lymphocytes % 33.3 18.0 - 42.0 % Monocytes % 7.0 1.0 - 11.0 % Eosinophils % 2.4 0.0 - 6.0 % Basophils % 0.5 0.0 - 2.0 % Absolute Neutrophils 3.74 1.80 - 7.70 K/uL Absolute Lymphocytes 2.19 1.00 - 4.80 K/ul Absolute Monocytes 0.46 0.00 - 1.10 K/uL Absolute Eosinophils 0.16 0.00 - 0.70 K/uL Absolute Basophils 0.03 0.00 - 0.20 K/uL IMPRESSION/PLAN: Erythrocytosis - resolved With mild and stable nature of erythrocytosis likely not of any current clinical significance. Not present on lab work drawn 12/21/23. Encouraged patient to increase free water intake. Could consider sleep medicine referral in the future if indicated. Continue colon cancer and pancreatic IPMN screening per PCP. RTC PRN MINI Walker documented in this encounter Nursing Notes * Camila Duggan, CHRISTI ASSIST - 02/16/2024 4:07 PM EDT Patient identifed by name and birthdate Do you have any concerns about pain management for today's visit? Yes. Patient instructed to discuss pain concerns with provider during the visit today Living Will or Advance Directive for Health Care as noted on the problem list. [facility] is a way you can talk to your provider on line through e-mail. Would you like to sign up? I can activate it for you? ALREADY ACTIVE Patient was instructed to not get up on the exam table/exam chair until directed and assisted by their provider; patient is to remain seated in the chair/ wheelchair/ exam table/ exam chair for fall prevention and safety reasons. Patient is aware to have assistance to step down off exam table/exam chair with personnel. Patient voiced full comprehension of instructions. Filed Vitals: 02/16/24 1605 BP: 146/83 Pulse: 108 Temp: 36.4 C (97.6 F) TempSrc: Tympanic SpO2: 94% Weight: 66 kg (145 lb 6.4 oz) documented in this encounter Plan of Treatment Upcoming Encounters Date Type Department Care Team (Late st Contact Info) Description 03/22/2024 10:00 AM EST Office Visit Neurology [facility] [address] [place] [place] [address] Jean Claude Le MD [address] [place] [address] 04/22/2024 9:20 AM EST Office Visit Family Practice [facility] [address] [place] [address] Felix Chavez, DO [address] [facility] [place] [address] Scheduled Procedures Name Priority Associated Diagnoses Date/Ti [...] this encounter Medical Devices Implanted Type [employer] Principal Device Identifier Shelf Expiration Date Model / Serial / Lot Lens Intraoc 21.0 - [id number] - [id number] Implanted:Qty: 1 on 06/10/2016 by Efren Pham MD at OR [facility] Right: Eye [employer] 01/01/2021 [id number] / [id number] / [id number] Lens Intraoc 21.0 - [id number] - [id number] Implanted:Qty: 1 on 06/24/2016 by Efren Pham MD at OR [facility] Left: Eye [employer]CH [employer] LOMB 01/31/2021 [id number] / [id number] / [id number] documented as of this encounter Visit Diagnoses Diagnosis Erythrocytosis- Primary Polycythemia, secondary Need for prophylactic vaccination and inoculation against influenza documented in this encounter Advance Directives * [...] and were consensually agreed upon. Care Teams Noise Abatement Engineer Relationship Specialty Start Date End Date Felix Chavez DO [address] [place] [address] PCP - General Family Medicine 07/18/16 documented as of this encounter
--- OUTSIDE RECORDS SUMMARY | 2024-06-09 08:23 | External Medical Summary | Summary of Care ---
Author Name Unknown Organization [facility] Address [address] [place] [address] Phone [phone] Care Team Providers Care Compressor Station Engineer Chief Name Role Phone Felix Chavez DO Primary Care Provider [phone] Reason for Visit * Reason Onset Date Comments Advice 03/28/2024 Mimi pt medic ation questions Encounter Details Date Type Department Care Team (Late st Contact Info) Description 03/28/2024 Telephone Neurology [facility] [address] [place], [place] [id number] Services, Scheduling [address] [place] [address] Advice (Mimi pt medication questions) Allergies Active [...] Take 1 Tab by mouth daily. Active Malcolm 3 1000 MG Oral Capsule Take by [...] 12/05/2019 Overview (08/20/2020): DO NOT DELETE [facility] DETECT Study: Project # [id number], Director Government: Reid Dacosta, PhD. SUMMARY: Goal: Establish test [...] contact study staff at ; after hours Director Government via the [facility] hospital fruit press operator . Please contact study team before resolving/deleting from patients problem list. Study phone number: [phone]. Diagnosis changed due to Research Module. Go to Snapshot for study details. Encounter for examination fo r normal comparison and control in clinical research program 06/22/2017 01/02/2022 Overview (08/20/2020): DO NOT DELETE - [facility] NITA Study: Project # [id number], Director Government: Jim Gracia, MS, MPH. SUMMARY: Goal: Establish [...] contact study staff at ; after hours Director Government via the [facility] hospital fruit press operator . - Please contact study team before resolving/deleting from patients problem list. Study phone number: [phone]. Diagnosis changed due to Research Module. Go to Snapshot for study details. documented as of this encounter (statuses as of 03/29/2024) Immunizations Name Administration Dates Next Due COVID-19 mRNA, LNP-s, No Pre serve, 2-Dose Series ([employer]) 07/12/2020,06/15/2020 Pneumococcal Conjugate Vacc, 13 Valent (Prevnar) [...] Phone number for nurse to call back: [phone] Are forms needed? no * Telephone Encounter [...] hand weakness, tingling, doesn't have strength to admitting office escort objects She feels that the medication is [...] Phone number for nurse to call back: [phone] Are forms needed? no Medication Refill? no Verify Pharmacy information is correct. Form to be used for established patients only (not new patients) Clinic has 24-48 hours to respond to caller. If caller is calling back before timeframe with any changes in condition/issues reported, update TEand re-route to appropriate pool If caller is calling back before timeframe- update TE- no need to re-route [facility] Neurology Pool- [facility] Neuro [place]- [id number] (All messages get sent to the [facility]) Neurology Pool Numbers- [place] and [place] patients - follow normal process Ops req [facility] Neurology ([place])- [id number] Ops req [place] Neu[place] ([place]- [facility] and [facility] [place] [place] Only)- [id number] Neurosurgery Pool Numbers- [place] patients- follow normal process Ops req Neurosurgery [facility] ([place])- [id number] Ops req Neurosurgery [facility] ([place] Only) [id number] documented in this encounter Plan of Treatment Upcoming Encounters Date Type Department Care Team (Late st Contact Info) Description 04/22/2024 9:20 AM EST Office Visit Family Practice [facility] [place] [address] [facility] [place] [address] Felix Chavez, [address] [place] [address] 09/20/2024 10:00 AM EDT Office Visit Neurology [facility] [place] [address] [facility] [place] [address] Jean Claude Payan MD [address] [place] [address] Scheduled Procedures Name Priority Associated Diagnoses Date/Ti [...] this encounter Medical Devices Implanted Type Area [employer] Business Objects Consultant Device Identifier Shelf Expiration Date Model / Serial / Lot Lens Intraoc 21.0 - [id number] - [id number] Implanted:Qty: 1 on 06/10/2016 by Efren Pham MD at OR [facility] Right: Eye [employer] 01/01/2021 [id number] / [id number] / [id number] Lens Intraoc 21.0 - [id number] - [id number] Implanted:Qty: 1 on 06/24/2016 by Efren Pham MD at OR [facility] Left: Eye [employer] 01/31/2021 [id number] / [id number] / [id number] documented as of this encounter Visit Diagnoses [...] and were consensually agreed upon. Care Teams Compressor Station Engineer Chief Relationship Specialty Start Date End Date Felix Chavez DO [address] [place] [address] PCP - General Family Medicine 07/18/16 documented as of this encounter
--- OUTSIDE RECORDS SUMMARY | 2024-06-09 08:23 | External Medical Summary | Summary of Care ---
Author Name Unknown Organization [facility] Address [address] [place] [address] Phone [phone] Care Team Providers Care Tray Setter Name Role Phone Felix Chavez DO Primary Care Provider [phone] [phone] Encounter Details Date Type Department Care Team (Late st Contact Info) Description 12/21/2023 Orders Only Hematology/Oncology [facility] [address] [place] [address] Rossy Valencia CRNP [address] [place] [address] Allergies Active Allergy Reactions Criticality Noted Date Comments Penicillins Hives High 05/05/2001 documented as of this encounter (statuses as of 12/21/2023) Medications Medication Sig Dispensed Refills Start Date End Date Status VITAMIN C 500 MG PO CAPS 1 tablet daily Active Calcium Carb-Cholecalcifero l 600-800 MG-UNIT Oral Tablet Take 1 Tablet by mouth in the morning. Active B Complex-C (SUPER B COMPLEX/VITAMIN C) TABS Take 1 Tab by mouth daily. Active [place] 3 1000 MG Oral Capsule Take by [...] as of this encounter (statuses as of 12/21/2023) Active Problems Problem Noted Date Diagnosed Date Parkinson's disease 03/17/2018 IPMN (intraductal papillary mucinous neoplasm) 0 09/07/2017 documented as of this encounter (statuses as of 12/21/2023) Resolved Problems Problem Noted Date Diagnosed Date Resolved Date Injury of right ankle 10/17/20192022 Encounter for examination fo r normal comparison and control in clinical research program 06/22/2017 12/05/2019 Overview: DO NOT DELETE [facility] DETECT Study: Project # [id number], Laundry Laborer: Reid Dacosta, PhD. SUMMARY: Goal: Establish test [...] contact study staff at ; after hours Laundry Laborer via the [facility] hospital oil spraying machine operator . Please contact study team before resolving/deleting from patients problem list. Study phone number: [phone]. Diagnosis changed due to Research Module. Go to Snapshot for study details. Encounter for examination fo r normal comparison and control in clinical research program 06/22/2017 01/02/2022 Overview: [facility] DELETE [facility] Study: Project # [id number], Laundry Laborer: Jim Gracia, MS, MPH. SUMMARY: Goal: Establish [...] contact study staff at ; after hours Laundry Laborer via the [facility] hospital oil spraying machine operator . - Please contact study team before resolving/deleting from patients problem list. Study phone number: [phone]. Diagnosis changed due to Research Module. Go to Snapshot for study details. documented as of this encounter (statuses as of 12/21/2023) Immunizations Name Administration Dates Next Due COVID-19 mRNA, LNP-s, No Pre serve, 2-Dose Series ([employer]) 07/12/2020,06/15/2020 Pneumococcal Conjugate Vacc, 13 Valent (Prevnar) 09/07/2017 Pneumococcal Polysaccharide PPV23 (Pneumovax) 05/06/2012 Seasonal Influenza, PF, 6 M & above, IM , (FluLaval or Fluzone) 03/17/2018 Seasonal Influenza, Quadriva lent Hd (Fluzone Hd) 03/03/2023,03/18/2022,05/24/2021 Seasonal Influenza, Quadriva lent Hd, 65+ Yrs 02/09/2020 Seasonal Influenza, Quadriva lent, No Preserve, IM 01/21/2016,04/05/2015 Seasonal Influenza, Split, I IV3, With Preserve, Inj 02/22/2014,02/08/2013,05/14/2012 Seasonal Influenza, Trivalen t, Adjuvanted, 65+ yrs 04/04/2019 TDAP (age 10 and older)(Boostrix) 05/14/2012 [...] on file documented as of this encounter Plan of Treatment Upcoming Encounters Date Type Department Care Team (Late st Contact Info) Description 02/16/2024 4:00 PM EDT Office Visit Hematology/Oncology [facility] [address] [facility] [place] [phone] Rossy Valencia CRNP [address] [place] [address] 03/22/2024 10:00 AM EST Office Visit Neurology [facility] [place] [address] [facility] [place] [address] Jean Claude Le MD [address] [place] [address] 04/22/2024 9:20 AM EST Office Visit Family Practice [facility] [address] [facility] [place] [address] Felix Chavez, [address] [facility] [place] [address] Scheduled Procedures Name Priority Associated Diagnoses Date/Ti me COLONOSCOPY FLEXIBLE PROXIMA L DIAGNOSTIC Recall History of colon polyps Family history of colon cancer Health Maintenance Due Date Last Done Comments Zoster Vaccines (1 of 2) 09/12/1993 Adult Wellness Visit 09/12/2009 Depression Screening 09/26/2020 09/27/2019 DTaP,Tdap,and Td Vaccines (2 - Td or Tdap) 05/14/2022 05/14/2012 COVID-19 Vaccine (3 - season) 2023 07/12/2020, 06/15/2020 Influenza Vaccine (FLU shot) (#1) [...] encounter Medical Devices Implanted Type Area Front End Specialist Device Identifier Shelf Expiration Date Model / Serial / Lot Lens Intraoc 21.0 - [id number] - [id number] Implanted:Qty: 1 on 06/10/2016 by Efren Pham MD at OR [facility] Right: Eye BAUSCH [employer] LOMB 01/01/2021 [id number] / [id number] / [id number] Lens Intraoc 21.0 - [id number] - [id number] Implanted:Qty: 1 on 06/24/2016 by Efren Pham MD at OR [facility] Left: Eye BAUSCH & LOMB 01/31/2021 [id number] / [id number] / [id number] documented as of this encounter Advance Directives [...] and were consensually agreed upon. Care Teams Tray Setter Relationship Specialty Start Date End Date Felix Chavez DO [address] [place] [address] PCP - General Family Medicine 07/18/16 documented as of this encounter
--- OUTSIDE RECORDS SUMMARY | 2024-06-09 08:23 | External Medical Summary | Summary of Care ---
Author Name Unknown Organization [facility] Address [address] [place] [address] Phone [phone] Care Team Providers Care Material Control Specialist Name Role Phone Felix Chavez DO Primary Care Provider [phone] Reason for Visit * Reason Onset Date Comments Advice 03/28/2024 Mimi pt medic ation questions Encounter Details Date Type Department Care Team (Late st Contact Info) Description 03/28/2024 Telephone Neurology [facility] [address] [place], [place] [phone] Services, Scheduling [address] [place] [address] Advice (Mimi pt medication questions) Allergies Active [...] Take 1 Tab by mouth daily. Active [place] 3 1000 MG Oral Capsule Take by [...] 12/05/2019 Overview (08/20/2020): DO NOT DELETE [facility] DETECT Study: Project # [id number], Auto Servicer: Reid Dacosta, PhD. SUMMARY: Goal: Establish test [...] contact study staff at ; after hours Auto Servicer via the [facility] hospital insulation board head saw operator . Please contact study team before resolving/deleting from patients problem list. Study phone number: [phone]. Diagnosis changed due to Research Module. Go to Snapshot for study details. Encounter for examination fo r normal comparison and control in clinical research program 06/22/2017 01/02/2022 Overview (08/20/2020): DO NOT DELETE - [facility] NITA Study: Project # [id number], Auto Servicer: Jim Gracia, MS, MPH. SUMMARY: Goal: Establish [...] contact study staff at ; after hours Auto Servicer via the [facility] hospital insulation board head saw operator . - Please contact study team before resolving/deleting from patients problem list. Study phone number: [phone]. Diagnosis changed due to Research Module. Go [...] Phone number for nurse to call back: [phone] Are forms needed? no * Telephone Encounter [...] hand weakness, tingling, doesn't have strength to business broker objects She feels that the medication is [...] Phone number for nurse to call back: [phone] Are forms needed? no Medication Refill? no Verify Pharmacy information is correct. Form to be used for established patients only (not new patients) Clinic has 24-48 hours to respond to caller. If caller is calling back before timeframe with any changes in condition/issues reported, update TEand re-route to appropriate pool If caller is calling back before timeframe- update TE- no need to re-route [facility] Neurology Pool- [facility] Neuro [place]- [phone] (All messages get sent to the [facility]) Neurology Pool Numbers- [place] and [place] patients - follow normal process Ops req [facility] Neurology ([place])- [id number] Ops req [place] Neurology ([place]- [facility] and [facility] clinics Only)- [id number] Neurosurgery Pool Numbers- [place] patients- follow normal process Ops req Neurosurgery [facility] ([place])- [id number] Ops req Neurosurgery [facility] ([place] Only) [id number] documented in this encounter Plan of Treatment Upcoming Encounters Date Type Department Care Team (Late st Contact Info) Description 09/20/2024 10:00 AM EDT Office Visit Neurology [facility] [place] [address] [place] [address] Jean Claude Payan MD [address] [place] [address] Scheduled Procedures Name Priority Associated [...] this encounter Medical Devices Implanted Type Area Desktop Support Specialist Device Identifier Shelf Expiration Date Model / Serial / Lot Lens Intraoc 21.0 - [id number] - [id number] Implanted:Qty: 1 on 06/10/2016 by Efren Pham MD at OR [facility] Right: Eye BAUSCH & LOMB 01/01/2021 [id number] / [id number] / [id number] Lens Intraoc 21.0 - [id number] - [id number] Implanted:Qty: 1 on 06/24/2016 by Efren Pham MD at OR [facility] Left: Eye BAUSCH & LOMB 01/31/2021 [id number] / [id number] / [id number] documented as of this encounter Visit Diagnoses [...] and were consensually agreed upon. Care Teams Material Control Specialist Relationship Specialty Start Date End Date Felix Chavez DO [address] [place] [address] PCP - General Family Medicine 07/18/16 documented as of this encounter
--- OUTSIDE RECORDS SUMMARY | 2024-06-09 08:23 | External Medical Summary | Summary of Care ---
Author Name Unknown Organization [facility] Address [address] [place] [address] Phone [phone] Care Team Providers Care Melting Operator Name Role Phone Felix Chavez Primary Care Provider [phone] [phone] Reason for Visit * Reason Comments Outpatient Testing Encounter Details Date Type Department Care Team (Late st Contact Info) Description 12/21/2023 8:50 AM EDT Laboratory Laboratory [facility] [employer] [address] [place] [address] [facility] [address] [place] [address] High serum transferrin saturation; Erythrocytosis Allergies Active Allergy Reactions Criticality Noted Date [...] Take 1 Tab by mouth daily. Active [place] 3 1000 MG Oral Capsule Take by [...] program 06/22/2017 12/05/2019 Overview: DO NOT DELETE [facility] DETECT Study: Project # [id number], Senior Mortgage Loan Processor: Reid Dacosta, PhD. SUMMARY: Goal: Establish test [...] contact study staff at ; after hours Senior Mortgage Loan Processor via the [facility] hospital cafe operator . Please contact study team before resolving/deleting from patients problem list. Study phone number: [phone]. Diagnosis changed due to Research Module. Go to Snapshot for study details. Encounter for examination fo r normal comparison and control in clinical research program 06/22/2017 01/02/2022 Overview: DO NOT DELETE - [facility] Study: Project # [id number], Senior Mortgage Loan Processor: Jim Gracia, MS, MPH. SUMMARY: Goal: Establish [...] contact study staff at ; after hours Senior Mortgage Loan Processor via the [facility] hospital cafe operator . - Please contact study team before resolving/deleting from patients problem list. Study phone number: [phone]. Diagnosis changed due to Research Module. Go to Snapshot for study details. documented as of this encounter (statuses as of 12/21/2023) Immunizations Name Administration Dates Next Due COVID-19 mRNA, LNP-s, No Pre serve, 2-Dose Series ([employer]) 07/12/2020,06/15/2020 Pneumococcal Conjugate Vacc, 13 Valent (Prevnar) [...] 02/16/2024 4:00 PM EDT Office Visit Hematology/Oncology [facility] [address] [facility] [place] [phone] Rossy Valencia CRNP [address] [place] [address] 03/22/2024 10:00 AM EST Office Visit Neurology [facility] [address] [facility] [place] [address] Jean Claude Le MD [address] [place] [address] 04/22/2024 9:20 AM EST Office Visit Family Practice [facility] [address] [facility] [place] [address] Felix Chavez, [address] [facility] [place] [address] Pending Results Name Type Priority Associated Diagnoses Date /Time CBC WITH WBC DIFFERENTIAL Lab STAT High serum transferrin saturation Erythrocytosis 12/21/2023 8:10 AM EDT IRON SCREEN, INCLUDING TIBC Lab STAT High serum transferrin saturation Erythrocytosis 12/21/2023 8:10 AM EDT FERRITIN Lab STAT High serum transferrin saturation Erythrocytosis 12/21/2023 8:10 AM EDT CBC Lab STAT High serum transferrin saturation Erythrocytosis 12/21/2023 8:10 AM EDT DIFFERENTIAL, AUTOMATED Lab STAT High serum transferrin saturation Erythrocytosis 12/21/2023 8:10 AM EDT Scheduled Procedures Name Priority Associated Diagnoses Date/Ti me COLONOSCOPY FLEXIBLE PROXIMA L DIAGNOSTIC Recall History of colon polyps Family history of colon cancer Health Maintenance Due Date Last Done Comments Zoster Vaccines (1 of 2) 09/12/1993 Adult Wellness Visit 09/12/2009 Depression Screening 09/26/2020 09/27/2019 DTaP,Tdap,and Td Vaccines (2 - Td or Tdap) 05/14/2022 05/14/2012 COVID-19 Vaccine (3 - 2022- season) 2023 07/12/2020, 06/15/2020 Influenza Vaccine (FLU [...] this encounter Medical Devices Implanted Type Area Electrical Laboratory Technician Device Identifier Shelf Expiration Date Model / Serial / Lot Lens Intraoc 21.0 - [id number] - [id number] Implanted:Qty: 1 on 06/10/2016 by Efren Pham MD at OR [facility] Right: Eye BAUSCH & LOMB 01/01/2021 [id number] / [id number] / [id number] Lens Intraoc 21.0 - [id number] - [id number] Implanted:Qty: 1 on 06/24/2016 by Efren Pham MD at OR [facility] Left: Eye BAUSCH & LOMB 01/31/2021 [id number] / [id number] / [id number] documented as of this encounter Visit Diagnoses Diagnosis High serum transferrin saturation Erythrocytosis Polycythemia, secondary documented in this encounter Advance Directives * [...] and were consensually agreed upon. Care Teams Melting Operator Relationship Specialty Start Date End Date Felix Chavez DO [address] [place] [address] PCP - General Family Medicine 07/18/16 documented as of this encounter
--- OUTSIDE RECORDS SUMMARY | 2024-06-09 08:23 | External Medical Summary ---
Author Name Unknown Address Unknown Organization K09:[facility] [place] [address] Laboratory Report Ordering Provider Test Date Status CHEY HAIDER 12/21/2023 08:32:15 Final Observation Date Value Abnormality Reference (Units ) Status SYNC LEUKOCYTES IN BLOOD BY AUTOMATED COUNT 12/21/2023 08:32:15 6.58 4.00-10.80 (K/uL) Final Segs 12/21/2023 08:32:15 56.8 40.0-75.0 (%) Final Lymphs % 12/21/2023 08:32:15 33.3 18.0-42.0 (%) Final Monos 12/21/2023 08:32:15 7.0 1.0-11.0 (%) Final Eosinophils 12/21/2023 08:32:15 2.4 0.0-6.0 (%) Final Basos 12/21/2023 08:32:15 0.5 0.0-2.0 (%) Final Absolute Segs 12/21/2023 08:32:15 3.74 1.80-7.70 (K/uL) Final Lymphs, absolute 12/21/2023 08:32:15 2.19 1.00-4.80 (K/ul) Final Monos, Abs 12/21/2023 08:32:15 0.46 0.00-1.10 (K/uL) Final Eos, Abs 12/21/2023 08:32:15 0.16 0.00-0.70 (K/uL) Final Basos, Abs 12/21/2023 08:32:15 0.03 0.00-0.20 (K/uL) Final Performing Location [facility] [place] [address]
--- OUTSIDE RECORDS SUMMARY | 2024-06-09 08:23 | External Medical Summary | Summary of Care ---
Author Name Unknown Organization [facility] Address [address] [place] [address] Phone [phone] Care Team Providers Care Religion Instructor Name Role Phone Felix Chavez Primary Care Provider +1 [phone] Reason for Visit * Reason Comments Outpatient Testing Encounter Details Date Type Department Care Team (Late st Contact Info) Description 12/21/2023 8:50 AM EDT Laboratory Laboratory [facility] [place] [address] [place] [address] [facility] [address] [place] [address] High serum transferrin saturation; Erythrocytosis Allergies Active [...] Take 1 Tab by mouth daily. Active [place] 3 1000 MG Oral Capsule Take by [...] program 06/22/2017 12/05/2019 Overview: DO NOT DELETE [facility] DETECT Study: Project # [id number], Sloop Captain: Reid Dacosta, PhD. SUMMARY: Goal: Establish test [...] contact study staff at ; after hours Sloop Captain via the [facility] hospital yard loader operator . Please contact study team before resolving/deleting from patients problem list. Study phone number: [phone]. Diagnosis changed due to Research Module. Go to Snapshot for study details. Encounter for examination fo r normal comparison and control in clinical research program 06/22/2017 01/02/2022 Overview: DO NOT DELETE - [facility] Study: Project # [id number], Sloop Captain: Jim Gracia, MS, MPH. SUMMARY: Goal: Establish [...] contact study staff at ; after hours Sloop Captain via the [facility] hospital yard loader operator . - Please contact study team before resolving/deleting from patients problem list. Study phone number: [phone]. Diagnosis changed due to Research Module. Go to Snapshot for study details. documented as of this encounter (statuses as of 12/21/2023) Immunizations Name Administration Dates Next Due COVID-19 mRNA, LNP-s, No Pre serve, 2-Dose Series ([employer]) 07/12/2020,06/15/2020 Pneumococcal Conjugate Vacc, 13 Valent (Prevnar) [...] 02/16/2024 4:00 PM EDT Office Visit Hematology/Oncology [facility] [address] [place] [phone] Rossy Valencia CRNP [address] [place] [address] 03/22/2024 10:00 AM EST Office Visit Neurology [facility] [address] [facility] [place] [address] Jean Claude Le MD [address] [place] [address] 04/22/2024 9:20 AM EST Office Visit Family Practice [facility] [address] [facility] [place] [address] Felix Chavez, [address] [facility] [place] [address] Pending Results Name Type Priority Associated Diagnoses Date /Time IRON SCREEN, INCLUDING TIBC Lab STAT High serum transferrin saturation Erythrocytosis 12/21/2023 8:32 AM EDT FERRITIN Lab STAT High serum transferrin saturation Erythrocytosis 12/21/2023 8:32 AM EDT Scheduled Procedures Name Priority Associated [...] encounter Medical Devices Implanted Type Area Manager City Device Identifier Shelf Expiration Date Model / Serial / Lot Lens Intraoc 21.0 - [id number] - [id number] Implanted:Qty: 1 on 06/10/2016 by Efren Pham MD at OR [facility] Right: Eye BAUSCH & LOMB 01/01/2021 [id number] / [id number] / [id number] Lens Intraoc 21.0 - [id number] - [id number] Implanted:Qty: 1 on 06/24/2016 by Efren Pham MD at OR [facility] Left: Eye BAUSCH & LOMB 01/31/2021 [id number] / [id number] / [id number] documented as of this encounter Procedures Procedure Name Priority Date/Time Associated Diagnosis Comments DIFFERENTIAL, AUTOMATED STAT 12/21/2023 8:32 AM EDT High serum transferrin saturation Erythrocytosis CBC STAT 12/21/2023 8:32 AM EDT High serum transferrin saturation Erythrocytosis CBC STAT 12/21/2023 8:32 AM EDT High serum transferrin saturation Erythrocytosis documented in this encounter Results * DIFFERENTIAL, AUTOMATED (12/21/2023 8:32 AM EDT) WBC 6.58 4.00 - 10.80 K/uL 12/21/2023 8:36 AM EDT [facility] [place] 56-02 Neutrophils % 56.8 40.0 - 75.0 % 12/21/2023 8:36 AM EDT [facility] 56-02 Lymphocytes % 33.3 18.0 - 42.0 % 12/21/2023 8:36 AM EDT [facility] 56-02 Monocytes % 7.0 1.0 - 11.0 % 12/21/2023 8:36 AM EDT [facility] 56-02 Eosinophils % 2.4 0.0 - 6.0 % 12/21/2023 8:36 AM EDT [facility] 56-02 Basophils % 0.5 0.0 - 2.0 % 12/21/2023 8:36 AM EDT [facility] 56-02 Absolute Neutrophils 3.74 1.80 - 7.70 K/uL 12/21/2023 8:36 AM EDT [facility] 56-02 Absolute Lymphocytes 2.19 1.00 - 4.80 K/ul 12/21/2023 8:36 AM EDT [facility] 56-02 Absolute Monocytes 0.46 0.00 - 1.10 K/uL 12/21/2023 8:36 AM EDT [facility] 56-02 Absolute Eosinophils 0.16 0.00 - 0.70 K/uL 12/21/2023 8:36 AM EDT [facility] 56-02 Absolute Basophils 0.03 0.00 - 0.20 K/uL 12/21/2023 8:36 AM EDT [facility] 56-02 Blood Venous blood specimen / Unknown 12/21/2023 8:32 AM EDT 12/21/2023 8:10 AM EDT Rossy MORSE LAB BLOOD ORDER TERRI [facility] [address] [place] [address] * CBC (12/21/2023 8:32 AM EDT) WBC 6.58 4.00 - 10.80 K/uL 12/21/2023 8:36 AM EDT [facility] 56 RBC 4.55 3.85 - 5.15 M/uL 12/21/2023 8:36 AM EDT [facility] 56 HGB 14.7 12.0 - 15.3 g/dL 12/21/2023 8:36 AM EDT [facility] 56 HCT 45.2 36.0 - 45.2 % 12/21/2023 8:36 AM EDT [facility] 56 MCV 99.3 81.5 - 97.5 fL 12/21/2023 8:36 AM EDT [facility] 56 MCH 32.3 27.0 - 34.0 pg 12/21/2023 8:36 AM EDT [facility] 56 MCHC 32.5 32.0 - 36.0 g/dL 12/21/2023 8:36 AM EDT [facility] 56 RDW 13.5 11.5 - 15.5 % 12/21/2023 8:36 AM EDT [facility] 56 PLT 231 140 - 400 K/uL 12/21/2023 8:36 AM EDT [facility] 56 MPV 10.7 6.6 - 11.1 fL 12/21/2023 8:36 AM EDT [facility] 56 Blood Venous blood specimen / Unknown 12/21/2023 8:32 AM EDT 12/21/2023 8:10 AM EDT Rossy MORSE LAB BLOOD ORDER TERRI [facility] [address] [place], [place] [id number] documented in this encounter Visit Diagnoses Diagnosis High serum [...] and were consensually agreed upon. Care Teams Religion Instructor Relationship Specialty Start Date End Date Felix Chavez DO [address] [place] [address] PCP - General Family Medicine 07/18/16 documented as of this encounter
--- OUTSIDE RECORDS SUMMARY | 2024-06-09 08:23 | External Medical Summary ---
Author Name Unknown Address Unknown Organization K01[facility] [address] [facility] [address] Laboratory Report Ordering Provider Test Date Status CHEY HAIDER 12/21/2023 08:32:39 Final Observation Date Value Abnormality Reference (Units ) Status Iron 12/21/2023 08:32:39 92 33-151 (ug /dL) Final Iron-binding capacity 12/21/2023 08:32:39 303 250-425 (ug/dL) Final Transferrin Sat % 12/21/2023 08:32:39 30 15 -55 (%) Final Performing Location [facility] [address] [facility] [address]
--- OUTSIDE RECORDS SUMMARY | 2024-06-09 08:23 | External Medical Summary | Summary of Care ---
Author Name Unknown Organization [facility] Address [address] [place] [address] Phone [phone] Care Team Providers Care Engagement Director Name Role Phone Felix Chavez DO Primary Care Provider [phone] Reason for Visit * Reason Onset Date Comments Advice 03/28/2024 Mimi pt medic ation questions Encounter Details Date Type Department Care Team (Late st Contact Info) Description 03/28/2024 Telephone Neurology [facility] [address] [place], [place] [id number] Services, Scheduling [address] [place] [address] Advice (Mimi pt medication questions) Allergies Active [...] Take 1 Tab by mouth daily. Active [place] 3 1000 MG Oral Capsule Take by [...] program 06/22/2017 12/05/2019 Overview (08/20/2020): DO NOT Long PlayTE [employer] NITA Study: Project # [id number], State Historical Society Director: Reid Dacosta, PhD. SUMMARY: Goal: Establish test [...] contact study staff at ; after hours State Historical Society Director via the [facility] timber treating tank operator . Please contact study team before resolving/deleting from patients problem list. Study phone number: [phone]. Diagnosis changed due to Research Module. Go to Snapshot for study details. Encounter for examination fo r normal comparison and control in clinical research program 06/22/2017 01/02/2022 Overview (08/20/2020): DO NOT DELETE - [employer] DETECT Study: Project # [id number], State Historical Society Director: Jim Gracia, MS, MPH. SUMMARY: Goal: Establish [...] contact study staff at ; after hours State Historical Society Director via the [facility] timber treating tank operator . - Please contact study team before resolving/deleting from patients problem list. Study phone number: [phone]. Diagnosis changed due to Research Module. Go to Snapshot for study details. documented as of this encounter (statuses as of 03/28/2024) Immunizations Name Administration Dates Next Due COVID-19 mRNA, LNP-s, No Pre serve, 2-Dose Series (Health Data Minder) 07/12/2020,06/15/2020 Pneumococcal Conjugate Vacc, 13 Valent (Prevnar) [...] Phone number for nurse to call back: [phone] Are forms needed? 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 no Medication Refill? no [...] to re-route Peds Neurology Pool- Peds Neuro Agitator Operator- [id number] (All messages get sent to the [facility]) Neurology Pool Numbers- [place] and [place] patients - follow normal process Ops req [facility] [place] ([place])- [id number] Ops req [place] Neurology ([place]- [facility] and [facility] clinics Only)- [id number] Neurosurgery Pool Numbers- [place] patients- follow normal process Ops req Neurosurgery [facility] ([place])- [id number] Ops req Neurosurgery [facility] ([place] Only) [id number] documented in this encounter Plan of Treatment Upcoming Encounters Date Type Department Care Team (Late st Contact Info) Description 04/22/2024 9:20 AM EST Office Visit Family Practice [facility] [address] [place] [address] Felix Chavez, [address] [facility] [place] [address] 09/20/2024 10:00 AM EDT Office Visit Neurology [facility] [address] [facility] [place] [address] Jean Claude Le MD [address] [place] [address] [...] this encounter Medical Devices Implanted Type Area Drum Drier Device Identifier Shelf Expiration Date Model / Serial / Lot Lens Intraoc 21.0 - [id number] - [id number] Implanted:Qty: 1 on 06/10/2016 by Efren Pham MD at OR [facility] Right: Eye [employer] 01/01/2021 [id number] / [id number] / [id number] Lens Intraoc 21.0 - [id number] - [id number] Implanted:Qty: 1 on 06/24/2016 by Efren Pham MD at OR [facility] Left: Eye [employer]OM[employer] 01/31/2021 [id number] / [id number] / [id number] documented as of this encounter Advance Directives [...] and were consensually agreed upon. Care Teams Engagement Director Relationship Specialty Start Date End Date Felix Chavez DO [address] [place] [address] PCP - General Family Medicine 07/18/16 documented as of this encounter
--- OUTSIDE RECORDS SUMMARY | 2024-06-09 08:23 | External Medical Summary ---
Author Name Unknown Address Unknown Organization K09:[facility] [place] [address] Laboratory Report Ordering Provider Test Date Status CHEY HAIDER 12/21/2023 08:32:15 Final Observation Date Value Abnormality Reference (Units ) Status WBC, Total 12/21/2023 08:32:15 6.58 4.00-10.8 0 (K/uL) Final RBC 12/21/2023 08:32:15 4.55 3.85-5.15 (M/uL) Final Hemoglobin 12/21/2023 08:32:15 14.7 12.0-15.3 (g/dL) Final HCT 12/21/2023 08:32:15 45.2 36.0-45.2 (%) Final MCV 12/21/2023 08:32:15 99.3 81.5-97.5 (fL) Final MCH 12/21/2023 08:32:15 32.3 27.0-34.0 (pg) Final MCHC 12/21/2023 08:32:15 32.5 32.0-36.0 (g/dL) Final RDW 12/21/2023 08:32:15 13.5 11.5-15.5 (%) Final Platelets 12/21/2023 08:32:15 231 140-400 (K /uL) Final MPV 12/21/2023 08:32:15 10.7 6.6-11.1 ( fL) Final Performing Location [facility] [place] [address]
--- OUTSIDE RECORDS SUMMARY | 2024-06-09 08:23 | External Medical Summary | Summary of Care ---
Author Name Unknown Organization [facility] Address [address] [place] [address] Phone [phone] Care Team Providers Care Water Quality Technician Name Role Phone Felix Chavez DO Primary Care Provider [phone] Reason for Visit * Reason Onset Date Comments Imaging Records Request 03/22/2024 Encounter Details Date Type Department Care Team (Late st Contact Info) Description 03/22/2024 Telephone Radiology Film File [address] [place] [address] Support, Imaging Radiology [address] [place] [address] Imaging Records Request Allergies Active Allergy Reactions Criticality Noted Date Comments Penicillins Hives High 05/05/2001 documented as of this encounter (statuses as of 03/22/2024) Medications VITAMIN C 500 MG PO CAPS 1 tablet daily Active Calcium Carb-Cholecalcifer ol 600-800 MG-UNIT Oral Tablet Take 1 Tablet by mouth in the morning. Active B Complex-C (SUPER B COMPLEX/VITAMIN C) TABS Take 1 Tab by mouth daily. Active Colt 3 1000 MG Oral Capsule Take by [...] 06/22/2017 12/05/2019 Overview (08/20/2020): DO NOT DELETE [employer] DETECT Study: Project # [id number], Home Appliance Washing Machine Mechanic: Reid Dacosta, PhD. SUMMARY: Goal: Establish test [...] contact study staff at ; after hours Home Appliance Washing Machine Mechanic via the [facility] textile coating machine operator . Please contact study team before resolving/deleting from patients problem list. Study phone number: [phone]. Diagnosis changed due to Research Module. Go to Snapshot for study details. Encounter for examination fo r normal comparison and control in clinical research program 06/22/2017 01/02/2022 Overview (08/20/2020): DO NOT DELETE - [employer] DETECT Study: Project # [id number], Home Appliance Washing Machine Mechanic: Jim Gracia, MS, MPH. SUMMARY: Goal: Establish [...] contact study staff at ; after hours Home Appliance Washing Machine Mechanic via the [facility] textile coating machine operator . - Please contact study team before resolving/deleting from patients problem list. Study phone number: [phone]. Diagnosis changed due to Research Module. Go [...] encounter Miscellaneous Notes * Telephone Encounter - Khadar Méndez OSA - 03/22/2024 2:31 PM EST Patient stopped in the office at [facility] Patient signed patient right of access form to release .16.24 Hip and L spine image(s) to self. Disc created for patient pickup at [facility] location Patient signed release form and took disc with her today. documented in this encounter Plan of Treatment Upcoming Encounters Date Type Department Care Team (Late st Contact Info) Description 04/22/2024 9:20 AM EST Office Visit Family Practice [facility] [address] [place] [address] Felix Chavez, DO [address] [facility] [place] [address] 09/20/2024 10:00 AM EDT Office Visit Neurology [facility] [address] [facility] [place] [address] Jean Claude Le MD [address] [place], [place] [id number] Scheduled Procedures Name Priority Associated Diagnoses Date/Ti me COLONOSCOPY FLEXIBLE PROXIMA L DIAGNOSTIC Recall History of colon polyps Family history of colon cancer Health Maintenance Due Date Last Done Comments Zoster Vaccines (1 of 2) 09/12/1993 Adult Wellness Visit 09/12/2009 Depression Screening 09/26/2020 09/27/2019 DTap/Tdap Vaccines (2 - Td or Tdap) 05/14/2022 05/14/2012 COVID-19 Vaccine ( season) 2024 07/12/2020, 06/15/2020 Colonoscopy 05/11/2024 05/11/2019, [...] this encounter Medical Devices Implanted Type Area Grocery Manager Device Identifier Shelf Expiration Date Model / Serial / Lot Lens Intraoc 21.0 - [id number] - [id number] Implanted:Qty: 1 on 06/10/2016 by Efren Pham MD at OR [facility] Right: Eye [employer] 01/01/2021 [id number] / [id number] / [id number] Lens Intraoc 21.0 - [id number] - [id number] Implanted:Qty: 1 on 06/24/2016 by Efren Pham MD at OR [facility] Left: Eye [employer] 01/31/2021 [id number] / [id number] / [id number] documented as of this encounter Advance Directives [...] and were consensually agreed upon. Care Teams Water Quality Technician Relationship Specialty Start Date End Date Felix Chavez DO [address] [place] [address] PCP - General Family Medicine 07/18/16 documented as of this encounter
--- NOTE | 2024-06-09 08:30 | Emergency Department Note ---
Impression & Plan Atrial flutter with rapid ventricular response, Pulmonary edema, CARVALHO (dyspnea on exertion), Abnormal EKG ED Provider Note NAME: JOSS SALMERON AGE: 78 SEX: F : 1945 ARRIVES VIA: Walk-In INFORMANT: Patient, ED PROVIDER(S): Jimbo Mast DO CHIEF COMPLAINT: Weakness HPI: The patient is an 78-year-old female who has a history of Parkinson's who presented to the emergency department for an evaluation of weakness and fatigue. The patient states she has been noticing symptoms over the last few weeks. She denies having any chest pain but does note some palpitations as well as tightness in her abdomen. She denies having any lower extremity swelling. She has no history of dysrhythmia or atrial fibrillation. The patient denies having any recent weight loss or weight gain. She did recently see her family doctor and had an increase in her Parkinson's medications. She thinks it might of started around the same time. She did present to the emergency department today because of ongoing symptoms. She presented with her daughter. ROS: See above HPI for pertinent positives & negatives. A total of 10 systems reviewed and were otherwise negative. PAST MEDICAL HISTORY: See Below PAST SURGICAL HISTORY: See Below FAMILY HISTORY: See Below SOCIAL HISTORY: See Below HOME MEDICATIONS: See Below ALLERGIES: See Below VITALS: See Below PHYSICAL EXAMINATION: GENERAL: Patient is awake alert in no acute distress patient is resting comfortably and showing no signs of anxiety EYES: The conjunctivae are clear. The pupils are round and reactive. EARS, NOSE, MOUTH AND THROAT: The nose is without any evidence of any deformity. NECK: The neck is nontender and supple. Mild HJR was noted. RESPIRATORY: Rales were noted at both bases. There is no tachypnea or conversational dyspnea. CARDIOVASCULAR: Tachycardic and regular heart sounds were noted to auscultation. There is no definite murmur. GASTROINTESTINAL: The abdomen is distended. Abdomen is nontender. MUSCULOSKELETAL/EXTREMITIES: There is no evidence of gross deformity full range of motion is noted in the hips and shoulders. SKIN: There is no obvious evidence of any rash. There are no petechiae, pallor or cyanosis noted. NEUROLOGIC: Patient is awake alert and oriented x3 MEDICAL DECISION MAKING: The patient is an 78-year-old female who presented to the emergency department for not feeling well. The patient has had symptoms gradually over the last couple of weeks. The patient was found to be in atrial flutter. It was very narrow and regular so initially she was treated with a dose of adenosine after her Holter monitor from last year was reviewed through the [employer] system. She had runs of SVT. That did not seem to break the underlying rhythm. She was started on a course of magnesium Cardizem and then after discussion with the maintenance worker swimming pool she was given a dose of metoprolol. I discussed the patient's laboratory and radiographic studies with her. She does have some degree of pulmonary edema on physical exam. This appears to be the case on chest x-ray as well. It could be from the underlying dysrhythmia or possibly the elevated blood pressure. These continue to improve while in the emergency department. I discussed her condition with the [facility] hospitalist. They have agreed to evaluate the patient. Triage Nursing notes reviewed. Prior medical records reviewed Vital Signs: reviewed and remarkable for tachycardia and hypertension. Differential diagnosis: Premature contractions, electrolyte abnormality, cardiac dysrhythmia, thyroid dysfunction, pulmonary embolism, infection, gastrointestinal, as well as other pathologies. ER treatment provided: See below Diagnostics interpreted by me: ECG: EKG was obtained in the emergency department. My interpretation is narrow complex tachycardia at [address] depressions were noted. There was no significant mumo-ui-vrcc variability. This could be SVT versus atrial flutter. This was compared to a tracing from July 14, 2019. Sinus rhythm has been replaced with neuro complex tachycardia. Cardiac Monitoring: An order was placed for continuous cardiac monitoring. The monitor shows a rate of narrow complex tachycardia at 149 bpm. Laboratory studies: As stated above and show below. Imaging studies: See below. Radiographic imaging was reviewed by myself Consultation(s): I discussed this case with Dr. Driver who is on-call for the [facility] cardiology group. I discussed this case with Gena who is on for the [facility] hospitalist group. ED COURSE: Procedures: Modified Valsalva maneuver was attempted. It did not resolve the narrow complex tachycardia. Critical Care: I have personally spent greater than 35 minutes of critical care time in the direct management of this patient. This includes bedside care, interpretation of diagnostic studies, and testing, discussion with consultants, patient, and family members, and other required patient management activities. This 35 minutes is in excess of all separately billable procedures. Past Med/Surg History Problem List (Updated 06/09/24 @ 09:41 by Jimbo Mast DO) Abnormal EKG (Acute) CARVALHO (dyspnea on exertion) (Acute) Pulmonary edema (Acute) Atrial flutter with rapid ventricular response (Acute) Medical History (Updated 06/09/24 @ 09:41 by Jimbo Mast DO) Parkinson disease Social History Smoking Status: Never smoker Feels Safe at Home: Yes Allergies Allergies Allergy/AdvReac Type Severity Reaction Status Date / Time penicillin V Allergy Mild UNKNOWN Unverified 06/16/09 11:30 Home Meds Home Medications Medication Instructions Recorded Confirmed None (Patient States No Home Meds) ##0 06/16/09 Results & Data (ED) Vital Signs Vital Signs - 24 hr 06/09/24 08:20 06/09/24 08:36 06/09/24 08:58 Temperature 36.7 C Temperature Source Temporal Artery Scan Pulse Rate 150 H 152 H Respiratory Rate 16 Respiratory Effort / Characteristics Non-Labored Spontaneous Respiratory Depth Normal Blood Pressure 186/127 H Blood Pressure Mean 146 Pulse Oximetry 96 Oxygen Delivery Method Room Air Room Air Sepsis Recent Fever Within 48 Hours No Sepsis New/Unexplained Change in Mental Status No Sepsis Action Taken by Nursing No Action Required 06/09/24 09:19 06/09/24 09:43 Temperature Temperature Source Pulse Rate 149 H 143 H Respiratory Rate Respiratory Effort / Characteristics Respiratory Depth Blood Pressure 156/116 H 134/108 H Blood Pressure Mean Pulse Oximetry Oxygen Delivery Method Sepsis Recent Fever Within 48 Hours Sepsis New/Unexplained Change in Mental Status Sepsis Action Taken by Jail Medications Current Medication List: was personally reviewed by me Laboratory Data Attestation: I reviewed the patient's lab results. 06/09/24 08:40 06/09/24 08:40 Lab Results 06/09/24 Range/Units 08:40 WBC 7.29 (4.8-10.8) K/ul RBC 4.91 (4.20-5.40) M/uL Hgb 15.6 (12.0-16.0) g/dl Hct 46.2 (37.0-47.0) % MCV 94.1 (80.0-100.0) fL MCH 31.8 (25.0-34.0) pg MCHC 33.8 (32.0-36.0) g/dL RDW Std Deviation 46.0 (36.4-46.3) fL RDW Coeff of Adam 13.4 (11.5-14.5) % Plt Count 240 (130-400) K/uL MPV 11.0 (9.4-12.4) fL Immature Gran % (Auto) 0.3 % Neut % (Auto) 68.6 % Lymph % (Auto) 24.4 % Esmeralda % (Auto) 5.5 % Eos % (Auto) 0.7 % Baso % (Auto) 0.5 % Neut # (Auto) 5.00 (1.40-6.50) K/uL Lymph # (Auto) 1.78 (1.20-3.40) K/uL Esmeralda # (Auto) 0.40 (0.11-0.59) K/uL Eos # (Auto) 0.05 (0.00-0.50) K/uL Baso # (Auto) 0.04 (0.00-0.20) K/uL Immature Gran # (Auto) 0.02 (0.01-0.20) K/uL PT 10.9 (9.0-12.0) Seconds INR 1.0 (0.9-1.1) APTT 26 (21-31) Seconds PTT Ratio 1.0 Sodium 139 (136-145) mmol/L Potassium 4.4 (3.5-5.1) mmol/L Chloride 104 (98-107) mmol/L Carbon Dioxide 26 (21-32) mmol/L Anion Gap 9 (3-11) BUN 23 (6-23) mg/dl Creatinine 0.98 (0.6-1.2) mg/dl Est Cr Clr Drug Dosing 41.8 ml/min eGFR 58.35 BUN/Creatinine Ratio 23.5 H (10-20) Glucose 108 H (70-99(Fasting)) mg/dl Calcium 9.0 (8.6-10.3) mg/dl Magnesium 2.0 (1.7-2.4) mg/dl Total Bilirubin 0.7 (0.2-1.0) mg/dl AST 30 (13-39) U/L ALT 7 (7-52) U/L Alkaline Phosphatase 65 (34-104) U/L Troponin I High Sens 29.1 H (0-14) pg/ml B-Natriuretic Peptide 858 H (0-100) pg/ml Total Protein 6.8 (6.0-8.3) gm/dl Albumin 4.2 (3.4-5.0) gm/dl Globulin 2.6 (2.5-4.0) gm/dl Albumin/Globulin Ratio 1.6 (0.9-2) TSH 4.182 (0.300-4.500) uIu/ml Administered Medications Discontinued Medications Adenosine (Adenosine Iv Soln 3 Mg/Ml 2 Ml Vial) 6 mg IV NOW STA Stop: 06/09/24 08:46 Last Admin: 06/09/24 08:50 Dose: 6 mg Documented By: CITLALI Adenosine (Adenosine Iv Soln 3 Mg/Ml 2 Ml Vial) 12 mg IV NOW STA Stop: 06/09/24 08:58 Last Admin: 06/09/24 08:55 Dose: 12 mg Documented By: CITLALI Diltiazem HCl (Diltiazem Hcl 5 Mg/Ml 5 Ml Vial) 10 mg IV NOW STA Stop: 06/09/24 08:46 Last Admin: 06/09/24 09:02 Dose: 10 mg Documented By: CITLALI Co-signed By: RITIKA Magnesium Sulfate/Dextrose (Magnesium Sulfate / D5w) 1 gm in 100 mls @ 100 mls/hr IV NOW STA Stop: 06/09/24 09:30 Last Admin: 06/09/24 08:45 Dose: 100 mls/hr Documented By: CITLALI Metoprolol Succinate (Metoprolol Succ 25mg Ext Rel Tab) 25 mg PO ONE ONE Stop: 06/09/24 09:09 Last Admin: 06/09/24 09:30 Dose: 25 mg Documented By: CITLALI Metoprolol Tartrate (Metoprolol Tartrate 1 Mg/Ml Vial) 5 mg IV NOW STA Stop: 06/09/24 09:09 Last Admin: 06/09/24 09:19 Dose: 5 mg Documented By: CITLALI Imaging Data Attestation: I personally reviewed and interpreted this imaging study as follows: My Impression: 1 view chest x-ray was obtained in the emergency department. My interpretation is cardiomegaly, there appears to be some fullness at the left hilum, there was no free air, final report below. Radiologist's Impression: Chest X-Ray 06/09/24 08:30 XR chest 1V portable CLINICAL HISTORY: Dysrhythmia COMPARISON STUDY: None FINDINGS: There is mild cardiomegaly without pulmonary vascular congestion. There is mild stranding opacity at the lung bases. No other consolidation or pleural effusion. No pneumothorax. IMPRESSION: Atelectasis versus early pneumonia in the lung bases. ACT 112: Negative or not required by law. Electronically signed by: Reid Mclaughlin M.D. 06/09/2024 8:43 AM Discharge Plan Visit Data Chief Complaint: Cardiac Assessment Stated Complaint: PARKINSON'S, WEAK, DIZZY, TACHYCARDIA, HIGH BP ED Provider: Jimbo Mast Discharge Problem: Atrial flutter with rapid ventricular response, Pulmonary edema, CARVALHO (dyspnea on exertion), Abnormal EKG Patient Disposition: Being Evaluated by Hospitalist Forms Stand Alone Forms: [facility] [employer]code Prescriptions Prescriptions: No Action None (Patient States No Home Meds) . Qty: 0 Referrals Referrals: Felix Chavez DO [Primary Care Provider] - Discharge Problem: Pulmonary edema Qualifiers: Chronicity: acute Qualified Code(s): J81.0 - Acute pulmonary edema
[2024-06-09] MEDS: MAGNESIUM SULFATE / D5W 1 GM/100 ML BAG IV STA (08:45)
--- NOTE | 2024-06-09 08:45 | XRay Report ---
XR chest 1V portable CLINICAL HISTORY: Dysrhythmia COMPARISON STUDY: None FINDINGS: There is mild cardiomegaly without pulmonary vascular congestion. There is mild stranding o pacity at the lung bases. No other consolidation or pleural effusion. No pneumothorax. IMPRESSION: Atelectasis versus early pneumonia in the lung bases. ACT 112: Negative or not required by law. Electronically signed by: Reid Mclaughlin M.D. 06/09/2024 8:43 AM
[2024-06-09] MEDS: ADENOSINE IV SOLN 3 MG/ML 2 ML VIAL IV STA ×2 (08:50→08:55)
[2024-06-09] MEDS: dilTIAZem HCl 5 MG/ML 5 ML VIAL IV STA (09:02)
[2024-06-09 09:14] LABS: Basophils # (auto) 0.04 K/uL (0.00-0.20); Basophils % (auto) 0.5 %; Eosinophils # (auto) 0.05 K/uL (0.00-0.50); Eosinophils % (auto) 0.7 %; Hematocrit (blood only) 46.2 % (37.0-47.0); Hemoglobin 15.6 g/dl (12.0-16.0); Immature Granulocytes # (auto) 0.02 K/uL (0.01-0.20); Immature Granulocytes % (auto) 0.3 %; Lymphocytes # (auto) 1.78 K/uL (1.20-3.40); Lymphocytes % (auto) 24.4 %; Mean Corpuscular Hemoglobin 31.8 pg (25.0-34.0); Mean Corpuscular Hgb Conc 33.8 g/dL (32.0-36.0); Mean Corpuscular Volume 94.1 fL (80.0-100.0); Monocytes % (auto) 5.5 %; Neutrophils % (auto) 68.6 %; Platelet Count 240 K/uL (130-400); RDW Coefficient of Variation 13.4 % (11.5-14.5); Red Blood Count 4.91 M/uL (4.20-5.40); White Blood Count 7.29 K/ul (4.8-10.8)
[2024-06-09] MEDS: METOPROLOL TARTRATE 1 MG/ML VIAL IV STA ×3 (09:19→10:45)
[2024-06-09 09:23] LABS: Albumin Globulin Ratio 1.6 (0.9-2); Albumin Level 4.2 gm/dl (3.4-5.0); BUN Creatinine Ratio 23.5 (10-20); Bilirubin,Total 0.7 mg/dl (0.2-1.0); Creatinine Clr Calc Pharmacy 41.8 ml/min; Globulin 2.6 gm/dl (2.5-4.0); Potassium 4.4 mmol/L (3.5-5.1); Total Protein 6.8 gm/dl (6.0-8.3)
[2024-06-09 09:29] LABS: Troponin I High Sensitivity 29.1 pg/ml (0-14)
[2024-06-09] MEDS: METOPROLOL SUCC 25MG EXT REL TAB PO ONE (09:30)
[2024-06-09 09:32] LABS: Partial Thromboplastin Time 26 Seconds (21-31); Prothrombin Time 10.9 Seconds (9.0-12.0)
[2024-06-09 09:38] LABS: Thyroid Stimulating Hormone 4.182 uIu/ml (0.300-4.500)
--- NOTE | 2024-06-09 10:11 | History & Physical Report ---
Date of Service June 09, 2024 Assessment & Plan (1) Acute heart failure with reduced ejection fraction and diastolic dysfunction: (2) Atrial flutter with rapid ventricular response: (3) Parkinson disease: Plan This is an 78yo F with a PMH of Parkinson's disease, IPMN who presents with weakness and fatigue worsening over the past few weeks and was found to have a flutter with RVR. A flutter with RVR Acute heart failure with reduced EF and diastolic dysfunction Afebrile, no leukocytosis. Will add resp viral panel given recent sick contacts, sore throat Initially treated in ER with IV diltiazem and IV adenosine, failing to convert to NSR Repeat EKG showed a flutter with RVR in 150s, duration seemingly 1+ week CXR with likely atelectasis at lung bases vs mild pulm edema Echo in ER today with reduced EF of 35-40%, left atrium is moderately dilated, mild global hypokinesis of the left ventricle Discussed with cardiology - giving 3rd dose of IV Lopressor 5mg in ED as well as IV lasix 20mg x 1 Continue with PO lopressor and PRN IV lopressor for HR >130 Continue heparin drip, interested in Eliquis for assisted anticoagulation NPO at ND for possible APRIL/cardioversion Strict I&Os, daily weights Monitor on telemetry Elevated troponin HS troponin 29.1 in ED, continue to trend Likely demand ischemia in setting of arrhythmia Parkinson's disease Worsening symptoms over past few months - [facility] and was prescribed a new regimen of carbidopa-levodopa to be started today Reached out over [employer] with update of her admission - he recommends keeping her current regimen for now - 25/100mg extended release 2 tabs @6:30, 1130, 1630 and 1 tab @2130 Coordinated with pharmacy to adjust dosing based on formulary Will need outpatient follow up with neurology at discharge DVT Ppx: IV heparin Code status: FULL PCP: Darrick Chavez Dispo: admitted to PCU Patient seen in collaboration with Dr. Patton. Please see addendum. I spent a total of 75 minutes coordinating, documenting, and providing care for this patient excluding time spent in the performance of separately billed services or time spent by another provider/QHP. History of Present Illness Chief Complaint: tachy Primary Care Provider: Felix Chavez, DO This is an 78yo F with a PMH of Parkinson's disease, IPMN who presents with weakness and fatigue worsening over the past few weeks. Has not felt well since Thanksgiving time but was attributing her change of gait, increased fatigue and "lead feet" to worsening Parkinson's. Follow[place] with Dr. Le of [facility] [place]. Earlier this week, he recommended adjusting her carbidopa levodopa dose to add immediate release 4 times daily in addition to slow release. She has not yet transition to this dose. Over the past week, she has noted more fatigue as well as inability to take a deep breath. Also noting rapid heart rate at night the past few nights when she wakes up. Noted her heart rate to be in the 140s to 150s overnight and was advised through MyChart discussion to come to ED for further evaluation. Currently patient feels fatigued and lightheaded when she sits up. Still experiencing some palpitation but denies any chest pain or shortness of breath at rest. Denies any change of increased swelling to lower extremities. States she has some chronic swelling in right lower extremity due to knee injury. No fever, chills, congestion. Does have a sore throat and has not been as hungry as usual. No wheezing, nausea, vomiting, abdominal pain, dysuria, diarrhea or constipation. Denies any known history of arrhythmia, heart failure or CAD. Allergies Allergy/AdvReac Type Severity Reaction Status Date / Time penicillin V Allergy Mild UNKNOWN Unverified 06/16/09 11:30 Home Medications Medication Instructions Recorded Confirmed Type ascorbic acid (vitamin C) 500 mg 500 mg PO DAILY 06/09/24 06/09/24 History tablet (Vitamin C) calcium 600 mg (as 1 tab PO DAILY 06/09/24 06/09/24 History carbonate)-vitamin D3 20 mcg (800 unit) tablet carbidopa ER 50 mg-levodopa 200 mg 2 tab PO QID 06/09/24 06/09/24 History tablet,extended release multivitamin 1 tab PO DAILY 06/09/24 06/09/24 History omega-3 fatty acids 1,000 mg PO DAILY 06/09/24 06/09/24 History vitamin B complex 1 cap PO DAILY 06/09/24 06/09/24 History Past Med/Surg History Problem List (Updated 06/09/24 @ 11:55 by Gena Cabrera PA-C) Acute heart failure with reduced ejection fraction and diastolic dysfunction Abnormal EKG (Acute) Atrial flutter with rapid ventricular response (Acute) Medical History (Updated 06/09/24 @ 11:55 by Gena Cabrera PA-C) Parkinson disease Surgical History (Updated 06/09/24 @ 11:55 by Gena Cabrera PA-C) S/P colon resection large colon polyp at age 58m "rectosigmoid anastamosis identified on colonoscopy" History of cataract surgery Family History Other Cancer Social History Smoking Status: Former smoker Smoking End Date: 1967; Feels Safe at Home: Yes Review of Systems Review of Systems: At least ten systems reviewed and negative except as noted in the HPI. Physical Exam Physical Exam: General Appearance: WD/WN, vitals as above, NAD, sitting up in bed, pleasant, conversing easily Head: normocephalic, atraumatic Eyes: normal inspection, PERRL, conjunctivae normal, anicteric sclerae ENT: external ear and nose normal, oropharynx normal Neck: normal visual inspection, trachea midline, no thyromegaly Respiratory: increased respiratory effort, diminished lung sounds at bases, no rales, wheeze or rhonchi. No accessory muscle use Cardiovascular: irregular rate and rhuthm, normal peripheral pulses, trace BLE edema, R>L Chest: normal inspection of chest Abdomen/GI: normal bowel sounds, soft, nontender, no hepatosplenomegaly Extremities/Musculoskeletal: no cyanosis or clubbing, extremities motor strength 5/5 Neurologic: PERRL, EOMI, accommodation nl, no face palsy, no dysarthria, CN's II-XI intact bilaterally and moves all extremities Psychiatric: A+Ox3, euthymic affect Skin: no rashes, normal color, warm/dry Results & Data Results & Data Vital Signs (Past 12 Hours) Vital Signs Temp Pulse Resp BP Pulse Ox O2 Del Method 06/09/24 09:43 143 H 134/108 H 06/09/24 09:19 149 H 156/116 H 06/09/24 08:58 Room Air 06/09/24 08:36 152 H 06/09/24 08:20 36.7 C 150 H 16 186/127 H 96 Room Air Laboratory Results Short CBC 06/09/24 Range/Units 08:40 WBC 7.29 (4.8-10.8) K/ul Hgb 15.6 (12.0-16.0) g/dl Hct 46.2 (37.0-47.0) % Plt Count 240 (130-400) K/uL BMP 06/09/24 08:40 Sodium 139 Potassium 4.4 Chloride 104 Carbon Dioxide 26 BUN 23 Creatinine 0.98 Glucose 108 H Calcium 9.0 Liver Function 06/09/24 Range/Units 08:40 Total Bilirubin 0.7 (0.2-1.0) mg/dl AST 30 (13-39) U/L ALT 7 (7-52) U/L Alkaline Phosphatase 65 (34-104) U/L Albumin 4.2 (3.4-5.0) gm/dl Diagnostic Findings Chest X-Ray 06/09/24 08:30 XR chest 1V portable CLINICAL HISTORY: Dysrhythmia COMPARISON STUDY: None FINDINGS: There is mild cardiomegaly without pulmonary vascular congestion. There is mild stranding opacity at the lung bases. No other consolidation or pleural effusion. No pneumothorax. IMPRESSION: Atelectasis versus early pneumonia in the lung bases. ACT 112: Negative or not required by law. Electronically signed by: Reid Mclaughlin M.D. 06/09/2024 8:43 AM Code Status & VTE Plan VTE Prophylaxis Plan VTE Prophylaxis will be ordered: Yes Supervising Physician Co-Signing Physician Notes 78 year-old lady with PMH of IPMN and Parkinson's disease presented with complaint of weakness and fatigue for last few weeks, gradually worsening. Of note, she is being evaluated for worsening Parkinson's disease as an outpatient, her dose has been adjusted recently/patient reports not starting the new dose yet. Patient also reports having sick contact about a week ago [grandson with flu]. Patient reports some sore throat for last 3 to 4 days, decreased appetite for last 2 days, shortness of breath and palpitations since last evening which triggered her to come to the ED. She reported her heart rate around 145 last evening and blood pressure of 176/132 today morning. Patient denied chest pain or belly pain, reports cough at baseline/no increase in cough or sputum. Patient denies fever/nausea/vomiting/pain or burning while passing urine/diarrhea/constipation/open wounds. Labs reviewed, WBC/RFT/LFT/TSH WNL. BNP elevated at 858, troponin mildly elevated at 29.1. CXR with likely atelectasis at lung bases, given pt doesn't have s/s of pneumonia. Echo with EF of 35 to 40%, left atrium is moderately dilated, mild global hypokinesis of the left ventricle. Likely viral URTI: Get respiratory [employer], known sick contact about a week ago [employer], patient complaints of sore throat and decreased appetite for last few days [employer]. A flutter with RVR: Patient currently on heparin drip, continue. Metoprolol dose being titrated, appreciate cardiology recommendation. Echo reviewed see above. Avoid IVF given reduced EF and s/s of mild volume overload at presentation leading to iv lasix need. Encourage PO intake. Likely demand ischemia: Troponin mildly elevated at 29.1, trend troponin. Likely demand ischemia in the setting of possible viral URTI and a flutter with RVR. Pt w/ no chest pain. Parkinson's disease: Per patient, her dose has been adjusted recently but she has not started the new regimen. ? reach out to neurology for further guidance during her acute illness at this time. On exam: GENERAL: Alert and oriented x3. NAD, on 2L NC O2 HEENT: No pallor, no icterus. Pupils equal, round and reactive to light. Oral mucosa moist. mildly congested and erythematous throat. NECK: No JVD, no neck masses. HEART: S1 and S2 heard. irregular rate and rhythm. HR in 130s. No murmur, no gallop. RESPIRATORY SYSTEM: Normal AP diameter. No accessory muscle use. No wheezing, no crackles. ABDOMEN: Soft, bowel sounds present, nontender, no distention. CENTRAL NERVOUS SYSTEM: No facial droop. Speech is clear. Obeys simple commands. Moves extremities. EXTREMITIES: trace ble edema, no erythema seen. I have seen and examined the patient and have discussed the case with the provider above. I agree with the assessment and plan as stated. Time spent separately: 30 min
--- NOTE | 2024-06-09 10:43 | Electrocardiogram Report ---
Test Reason : Blood Pressure : */* mmHG Vent. Rate : 150 BPM Atrial Rate : * BPM P-R Int : * ms QRS Dur : 114 ms QT Int : 360 ms P-R-T Axes : * 44 89 degrees QTcB Int : 568 ms Atrial flutter with 2:1 A-V conduction Abnormal ECG When compared with ECG of 14-Jul-2019 10:03, Atrial flutter now present HR has increased by 78 bpm Confirmed by Sanjay Kenney ([id number]) on 06/09/2024 10:43:27 AM Referred By: Confirmed By: Sanjay Kenney
[2024-06-09] MEDS: FUROSEMIDE INJ 20 MG/2 ML VIAL IV ONE (10:47)
[2024-06-09] MEDS: HEPARIN 25000 UNIT/500 ML D5W 25,000 UNITS/500 ML BAG IV SCH (10:50)
[2024-06-09] MEDS: Heparin IV Adult Wt-Based Low-Dose *NO* INITIAL Bolus Protocol IV STA (10:59)
[2024-06-09] MEDS ORDERED: POLYETHYLENE (MIRALAX) 17 GM PACK PO PRN (11:02)
[2024-06-09] MEDS ORDERED: ACETAMINOPHEN 325 MG TAB PO PRN (11:02)
--- NOTE | 2024-06-09 11:35 | Cardiology Consultation ---
Date of Consultation June 09, 2024 Assessment & Plan (1) Atrial flutter with rapid ventricular response: (2) Acute heart failure with reduced ejection fraction and diastolic dysfunction: Plan Patient admitted with SOB/palpitations. Diagnosed with atrial flutter RVR in the 150's. Duration unknown, possibly several weeks. Treated initially in ER with IV diltiazem and IV adenosine, failing to convert to NSR. Started on IV metoprolol and then transitioned to oral metoprolol HR's trending lower since admission. Currently in the 130's. Likely will need APRIL/CV later this admission in order to restore NSR. Chest xray reveals mild pulm edema/small pleural effusions. Treated with IV lasix in the ER. Patient reports frequent urination since admission. SOB improving over the last few hours Monitor I+O's. Monitor electrolytes and renal function Daily weight with standing scale. Echo reveals moderately reduced LVEF 35%. 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 Start GDMT as BP tolerates after beta elizabeth is titrated. Case discussed with Dr. Driver. Will follow. I spent a total of 60 minutes on the date of service in preparation, delivery, and documentation of the care provided to this patient, excluding any time spent in the performance of separately billed services. Jennifer Roberts PA-C Department of Cardiology, [facility] This chart was completed in part utilizing Speech Voice Recognition Software. Grammatical errors, random word insertions, pronoun errors, and incomplete sentences are an occasional consequence of this system due to software limitations, ambient noise, and hardware issues. Any formal questions or concerns about the content, text, or information contained within the body of this dictation should be directly addressed to the provider for clarification. Supervising Physician Co-Signing Physician Notes Patient was seen and personally examined. Care and management discussed with patient and with advanced provider as above findings personally endorsed. 78-year-old female presenting with several days malaise and noted elevated heart rate while lying in bed last evening. Presented to the ER where she was found to be in atrial flutter with elevated ventricular response rate. Rhythm findings of uncertain duration. Impression: 1. Atrial flutter with rapid ventricular response 2-1 conduction, uncertain duration. 2. Reduced ejection fraction mild likely secondary to tachyarrhythmia 3. Mild congestive heart failure by x-ray and exam 4. Moderate mitral tricuspid sufficiency secondary to hypertension, arrhythmia 5. Hypertension Recommendations: Begin oral beta-elizabeth with metoprolol's tartrate 50 mg 3 times daily Anticoagulation with IV heparin Single dose IV furosemide given 20 mg Tentative plans for transesophageal guided synchronized cardioversion in a.m. Procedure scheduled. Patient n.p.o. after midnight I spent a total of 60 minutes on the date of service in preparation, delivery, and documentation of the care provided to this patient, excluding any time spent in the performance of separately billed services. History of Present Illness Reason for Consultation: Atrial flutter RVR Requesting Physician: Loihoward hospitalist Attending Physician: Dr. Driver History of Present Illness Patient is an 78 year old female admitted to [facility] with complaints of palpitations. Found to be tachycardic and initially treated with several doses of IV adenosine and IV diltiazem, failing to convert. EKG consistent with atrial flutter 2:1 AV conduction at 150 bmp. She was then treated with several doses of IV metoprolol and started on oral metoprolol succinate 25 mg. Also started on IV heparin for anticoagulation therapy/stroke prophylaxis. Due to SOB and small pleural effusion on chest xray, she was treated with one dose IV lasix in the ER. She denies history of cardiovascular problems. She had a stress echo in November 2017 which was negative for inducible ischemia with mild concentric LVH, diastolic dysfunction grade I and mild MR, mild TR. She reports not feeling well for the last few weeks. Was uncertain if this was recent change in her Parkinson medication or worsening tremors. Now that she looks back on symptoms, she thinks this may have been her rapid HR dating back a few weeks but became more pronounced last night She reports her SOB is better than admission. Able to take a deep breath. She denies chest pain. HR has improved from admission but remains tachycardiac. history includes: 1. Parkinson's disease 2. history of lyme disease Allergies Allergy/AdvReac Type Severity Reaction Status Date / Time penicillin V Allergy Mild UNKNOWN Unverified 06/16/09 11:30 Home Medications Medication Instructions Recorded Confirmed Type ascorbic acid (vitamin C) 500 mg 500 mg PO DAILY 06/09/24 06/09/24 History tablet (Vitamin C) calcium 600 mg (as 1 tab PO DAILY 06/09/24 06/09/24 History carbonate)-vitamin D3 20 mcg (800 unit) tablet carbidopa ER 50 mg-levodopa 200 mg 2 tab PO QID 06/09/24 06/09/24 History tablet,extended release multivitamin 1 tab PO DAILY 06/09/24 06/09/24 History omega-3 fatty acids 1,000 mg PO DAILY 06/09/24 06/09/24 History vitamin B complex 1 cap PO DAILY 06/09/24 06/09/24 History Patient History Medical History (Updated 06/09/24 @ 11:55 by Gena Cabrera PA-C) Parkinson disease Surgical History (Updated 06/09/24 @ 11:55 by Gena Cabrera PA-C) S/P colon resection large colon polyp at age 58m "rectosigmoid anastamosis identified on colonoscopy" History of cataract surgery Family History Other Cancer Social History Smoking Status: Former smoker Smoking End Date: 1967; Feels Safe at Home: Yes Review of Systems Review of Systems: All systems reviewed & are unremarkable except as noted in HPI & below Physical Exam Constitutional: WD/WN, vitals as above average body habitus; no acute distress Neck: trachea midline, no thyromegaly Respiratory: no labored breathing Auscultation: + diminished lung sounds; no crackles and no rales Cardiovascular: Rate/Rhythm: + tachycardic Heart Sounds: + murmur (II/ systolic murmur) Vessels: no JVD Extremities: + edema (trace pretibial edema) Gastrointestinal (Abdomen): normal bowel sounds, soft, nontender, no hepatosplenomegaly Skin: no rashes, warm and dry Neurologic: PERRL, EOMI, accommodation nl, no face palsy, no dysarthria Results & Data Vital Signs (Past 12 Hours) Vital Signs Temp Pulse Resp BP Pulse Ox O2 Del Method 06/09/24 11:07 138 H 147/103 H 06/09/24 11:00 138 H 94 06/09/24 11:00 147/103 H 06/09/24 10:57 137 H 93 06/09/24 10:47 137 H 136/95 06/09/24 10:45 136/95 06/09/24 10:45 136/95 06/09/24 10:45 138 H 95 06/09/24 10:45 138 H 136/95 06/09/24 10:33 139 H 94 06/09/24 10:30 148/121 H 06/09/24 10:30 148/121 H 06/09/24 10:27 140 H 90 06/09/24 10:15 148/101 H 06/09/24 10:06 138 H 91 06/09/24 09:45 133/108 H 06/09/24 09:45 133/108 H 06/09/24 09:43 143 H 134/108 H 06/09/24 09:39 143 H 95 06/09/24 09:33 144 H 94 06/09/24 09:30 134/108 H 06/09/24 09:30 134/108 H 06/09/24 09:27 145 H 94 06/09/24 09:19 149 H 156/116 H 06/09/24 09:00 171/132 H 06/09/24 08:58 Room Air 06/09/24 08:51 148 H 06/09/24 08:46 173/125 H 06/09/24 08:36 152 H 06/09/24 08:20 36.7 C 150 H 16 186/127 H 96 Room Air Laboratory Results Cardiac Enzymes 06/09/24 Range/Units 08:40 AST 30 (13-39) U/L Troponin I High Sens 29.1 H (0-14) pg/ml B-Natriuretic Peptide 858 H (0-100) pg/ml Coagulation 06/09/24 Range/Units 08:40 PT 10.9 (9.0-12.0) Seconds APTT 26 (21-31) Seconds B-Natriuretic Peptide 858 H (0-100) pg/ml CBC 06/09/24 Range/Units 08:40 WBC 7.29 (4.8-10.8) K/ul RBC 4.91 (4.20-5.40) M/uL Hgb 15.6 (12.0-16.0) g/dl Hct 46.2 (37.0-47.0) % Plt Count 240 (130-400) K/uL Neut # (Auto) 5.00 (1.40-6.50) K/uL Lymph # (Auto) 1.78 (1.20-3.40) K/uL Mills # (Auto) 0.40 (0.11-0.59) K/uL Eos # (Auto) 0.05 (0.00-0.50) K/uL Baso # (Auto) 0.04 (0.00-0.20) K/uL Comprehensive Metabolic Panel 06/09/24 Range/Units 08:40 Sodium 139 (136-145) mmol/L Potassium 4.4 (3.5-5.1) mmol/L Chloride 104 (98-107) mmol/L Carbon Dioxide 26 (21-32) mmol/L BUN 23 (6-23) mg/dl Creatinine 0.98 (0.6-1.2) mg/dl Glucose 108 H (70-99(Fasting)) mg/dl Calcium 9.0 (8.6-10.3) mg/dl AST 30 (13-39) U/L ALT 7 (7-52) U/L Alkaline Phosphatase 65 (34-104) U/L Total Protein 6.8 (6.0-8.3) gm/dl Albumin 4.2 (3.4-5.0) gm/dl Intake and Output 06/08/24 06/09/24 06/09/24 22:59 06:59 14:59 Intake Total 100 / 100 Balance 100 / 100 Intake: IV 100 / 100 Magnesium Sulfate / D5w 1 gm In 100 / 100 100 ml @ 100 mls/hr IV NOW STA Rx#:[id number] Other: Weight 69.4 kg Patient Weight 06/10/24 06:59 Weight 69.4 kg Diagnostic Findings Telemetry reviewed: Atrial flutter in the 130's EKG reviewed dated 06/09/24: Atrial flutter with RVR at 150 bmp Echo report reviewed dated 06/09/24: Atrial flutter with RVR LV is normal in size Moderate concentric LVH Mild global hypokinesis of the LV LVEF 35-40% LA is moderately dilated Mitral valve leaflets are moderately thickened Moderate to severe MR Moderate TR Chest X-Ray 06/09/24 08:30 XR chest 1V portable CLINICAL HISTORY: Dysrhythmia COMPARISON STUDY: None FINDINGS: There is mild cardiomegaly without pulmonary vascular congestion. There is mild stranding opacity at the lung bases. No other consolidation or pleural effusion. No pneumothorax. IMPRESSION: Atelectasis versus early pneumonia in the lung bases. ACT 112: Negative or not required by law. Electronically signed by: Reid Mclaughlin M.D. 06/09/2024 8:43 AM Medications Administered Current Inpatient Medications Acetaminophen (Acetaminophen 325 Mg Tab) 650 mg PO Q4H PRN PRN Reason: Pain or Fever Stop: 07/09/24 11:01 Ascorbic Acid (Ascorbic Acid 500 Mg Tab) 500 mg PO DAILY DANNY Stop: 07/10/24 08:59 Calcium/Vitamin D (Calcium 600mg + Vit D 400 Iu Tab) 1 tab PO DAILY DANNY Stop: 07/10/24 08:59 Carbidopa/Levodopa (Carbidopa/Levodopa 25/100mg Ext Rel Tab) 1 tab PO TODAY@0630,1130,1630,2130 DANNY Stop: 07/09/24 11:29 Carbidopa/Levodopa (Carbidopa/Levodopa 50/200mg Ext Rel Tab) 1 tab PO TODAY@0630,1130,1630,2130 DANNY Stop: 07/09/24 11:29 Fish Oil (Atkinson-3 (Purified Fish Oil) 1 Gm Cap) 1 cap PO DAILY DANNY Stop: 07/10/24 08:59 Heparin Sodium/Dextrose (Heparin 85497 Unit/500 Ml) 25,000 units in 500 mls @ 0.02 mls/hr IV .Q24H DANNY; Protocol Stop: 07/09/24 10:59 Last Admin: 06/09/24 10:50 Dose: 700 units/hr, 14 mls/hr Lactobacillus Acidophilus (Advanced Probiotic 625 Mg Capsule) 625 mg PO DAILY DANNY Stop: 07/10/24 08:59 Multivitamins (Multivitamin Tab) 1 tab PO DAILY DANNY Stop: 07/10/24 08:59 Ondansetron HCl (Ondansetron Inj 2 Mg/Ml 2 Ml Vial) 4 mg IV Q6H PRN PRN Reason: Nausea Stop: 07/09/24 11:01 Polyethylene Glycol (Polyethylene (Miralax) 17 Gm Pack) 17 gm PO DAILY PRN PRN Reason: Constipation Stop: 07/09/24 11:01 Vitamin B Complex (Vitamin B Complex Tab) 1 tab PO DAILY DANNY Stop: 07/10/24 08:59
[2024-06-09] MEDS: CARBIDOPA/LEVODOPA 25/100MG EXT REL TAB PO SCH (12:11)
[2024-06-09] MEDS: CARBIDOPA/LEVODOPA 50/200MG EXT REL TAB PO SCH ×3 (12:11→21:27)
[2024-06-09 12:16] LABS: Appearance Urine Clear (Clear); Bilirubin Urine Negative (Negative); Blood Urine Negative (Negative); Color Urine Yellow; Glucose Urine UA Negative (Negative); Ketones Urine Negative (Negative); Leukocyte Esterase Urine Negative (Negative); Nitrite Urine Negative (Negative); Protein Urine Negative (Negative); Specific Gravity Urine 1.012 (1.000-1.030); Urobilinogen Urine Negative (Negative); pH Urine 5.5 (4.5-7.5)
[2024-06-09] MEDS: CARBIDOPA/LEVODOPA 50/200MG EXT REL TAB PO STA (12:45)
[2024-06-09 13:01] LABS: Adenovirus PCR Not Detected (NotDetected); Bordetella parapertussis PCR Not Detected (NotDetected); Bordetella pertussis PCR Not Detected (NotDetected); Chlamydia pneumoniae PCR Not Detected (NotDetected); Coronavirus 229E PCR Not Detected (NotDetected); Coronavirus CoV-2 (COVID19)PCR Not Detected (NotDetected); Coronavirus HKU1 PCR Not Detected (NotDetected); Coronavirus NL63 PCR Not Detected (NotDetected); Coronavirus OC43PCR Not Detected (NotDetected); Human Metapneumovirus PCR Not Detected (NotDetected); Influenza A PCR Not Detected (NotDetected); Influenza B PCR Not Detected (NotDetected); Mycoplasma pneumoniae PCR Not Detected (NotDetected); Parainfluenza Virus 1 PCR Not Detected (NotDetected); Parainfluenza Virus 2 PCR Not Detected (NotDetected); Parainfluenza Virus 3 PCR Not Detected (NotDetected); Parainfluenza Virus 4 PCR Not Detected (NotDetected); Respiratory Syncytial VirusPCR Not Detected (NotDetected); Rhinovirus/Enterovirus PCR Not Detected (NotDetected)
[2024-06-09] MEDS: METOPROLOL TARTRATE 50 MG TAB PO SCH (14:48)
[2024-06-09 17:47] LABS: ANTI-Xa, UFH(UnfractionatedHep 0.17 IU/ml (0.3-0.7)
[2024-06-09] MEDS: HEPARIN SOD (PORCINE) 1000 UNIT/ML ONE (18:22)
[2024-06-09] MEDS: HEPARIN SOD (PORCINE) 1000 UNIT/ML IV ONE (18:22)
[2024-06-10] MEDS: ONDANSETRON INJ 2 MG/ML 2 ML VIAL IV PRN (00:15)
[2024-06-10] MEDS: dilTIAZem HCl 5 MG/ML 5 ML VIAL IV STA ×2 (01:03→04:14)
[2024-06-10 01:05] LABS: ANTI-Xa, UFH(UnfractionatedHep 0.32 IU/ml (0.3-0.7)
[2024-06-10] MEDS: ACETAMINOPHEN 1,000 MG/100 ML VIAL IV STA (01:12)
--- NOTE | 2024-06-10 01:50 | CT Scan Report ---
EXAM: CT head/brain wo con CLINICAL HISTORY: smith, heparin TECHNIQUE: Multiple axial images are obtained from the skull base to the vertex without contrast. CT scan was performed according to ALARA (as low as reasonable achievable). COMPARISON: None. FINDINGS: There is cerebral atrophy. No evidence of space occupying lesion, hemorrhage, edema, mass effect, midline shift, extra axial collection, or hydrocephalus is noted. Basal cisterns are symmetric and normal in size and configuration. There are scattered periventricular hypodensities as can be seen with chronic microvascular ischemic changes. The carr-white matter differentiation is preserved. Visualized paranasal sinuses and mastoid air cells are well aerated. Orbital contents are within normal limits. Bony structures are intact. IMPRESSION: 1. No evidence of acute intracranial abnormality is demonstrated. 2. Chronic microvascular ischemic changes. 3. Cerebral atrophy. Electronically signed by Rios Lau 06-10-2024 01:47 AM
[2024-06-10] MEDS: METOPROLOL TARTRATE 1 MG/ML VIAL IV STA (01:52)
[2024-06-10] MEDS: METOPROLOL TARTRATE 50 MG TAB PO STA (04:50)
[2024-06-10] MEDS: METOPROLOL SUCC 50MG EXT REL TAB PO STA (04:53)
[2024-06-10] MEDS ORDERED: STAT IV Infusion **Titration per Protocol STA (05:46)
--- NOTE | 2024-06-10 05:48 | Communication Note ---
Date of Service: June 10, 2024 Patient with uncontrolled atrial flutter rate overnight unresponsive to multiple doses of IV Cardizem and IV metoprolol. Restart IV Cardizem infusion
[2024-06-10] MEDS: dilTIAZem HCL 125 MG in DEXTROSE 5% 100 ML IV SCH (06:20)
--- NOTE | 2024-06-10 07:17 | Anesthesiology Consultation ---
Date of Service June 10, 2024 Assessment & Plan Chart Review Chart Review: Acceptable Risk for Surgery and Patient NOT seen in Pre Admission Testing Consults Requested none History Surgery Operation Date: 06/10/24 07:30 Proposed Procedures p Transesophageal Echo w/Anesthesia and cardioversion - Guevara Driver MD Height/Weight Height: 5 ft 2 in Weight: 70.9 kg Allergies Allergy/AdvReac Type Severity Reaction Status Date / Time penicillin V Allergy Mild UNKNOWN Unverified 06/16/09 11:30 Medications Home Medications Medication Instructions Recorded Confirmed Last Taken ascorbic acid (vitamin C) 500 mg 500 mg PO DAILY 06/09/24 06/09/24 Unknown tablet (Vitamin C) calcium 600 mg (as 1 tab PO DAILY 06/09/24 06/09/24 Unknown carbonate)-vitamin D3 20 mcg (800 unit) tablet carbidopa ER 50 mg-levodopa 200 mg 2 tab PO QID 06/09/24 06/09/24 Unknown tablet,extended release multivitamin 1 tab PO DAILY 06/09/24 06/09/24 Unknown omega-3 fatty acids 1,000 mg PO DAILY 06/09/24 06/09/24 Unknown vitamin B complex 1 cap PO DAILY 06/09/24 06/09/24 Unknown Active Medications Generic Name Dose Route Start Last Admin Trade Name Freq PRN Reason Stop Dose Admin Carbidopa/Levodopa 1 tab 06/09/24 16:30 06/10/24 05:37 Carbidopa/Levodopa 50/200mg Ext Rel Tab PO 07/09/24 16:29 1 tab TID@0630,1130,1630 DANNY Administration Carbidopa/Levodopa 0.5 tab 06/09/24 21:30 06/09/24 21:27 Carbidopa/Levodopa 50/200mg Ext Rel Tab PO 07/09/24 21:29 0.5 tab DAILY@2130 DANNY Administration Heparin Sodium/Dextrose 25,000 units in 500 mls @ 16 mls/hr 06/09/24 11:00 06/10/24 02:19 Heparin 82739 Unit/500 Ml IV 07/09/24 10:59 800 units/hr .Q24H DANNY 16 mls/hr Titration Protocol 800 UNITS/HR Diltiazem HCl 125 mg/ Dextrose 125 mls @ 5 mls/hr 06/10/24 06:00 06/10/24 06:20 IV 07/10/24 05:59 5 mg/hr .Q24H DANNY 5 mls/hr Administration Protocol 5 MG/HR Ondansetron HCl 4 mg 06/09/24 11:02 06/10/24 00:15 Ondansetron Inj 2 Mg/Ml 2 Ml Vial IV 07/09/24 11:01 4 mg Q6H PRN Administration Nausea Past Medical History Medical History (Updated 06/09/24 @ 11:55 by Gena Cabrera PA-C) Parkinson disease Past Family History Family History Other Cancer Past Surgical History Surgical History (Updated 06/09/24 @ 11:55 by Gena Cabrera PA-C) S/P colon resection large colon polyp at age 58m "rectosigmoid anastamosis identified on colonoscopy" History of cataract surgery Social History Smoking Status: Never smoker Smoking End Date: 1969 Hx Alcohol Use: Yes Alcohol type: wine alcohol intake frequency: 0-2 drinks per day Hx Substance Use: No Physical Exam Vital Signs Last Vital Signs Temp 36.5 C 06/10/24 03:41 Pulse 139 H 06/10/24 05:39 Resp 18 06/10/24 05:39 BP 132/92 06/10/24 05:39 Pulse Ox 93 06/10/24 05:39 O2 Del Method Nasal Cannula 06/10/24 05:39 O2 Flow Rate 3 06/10/24 05:39 Testing Laboratory Results 06/09/24 08:40 06/09/24 08:40 PT 10.9 Seconds (9.0-12.0) 06/09/24 08:40 INR 1.0 (0.9-1.1) 06/09/24 08:40 APTT 26 Seconds (21-31) 06/09/24 08:40 Urine Color Yellow 06/09/24 12:00 Urine Appearance Clear (Clear) 06/09/24 12:00 Urine pH 5.5 (4.5-7.5) 06/09/24 12:00 Ur Specific [place] 1.012 (1.000-1.030) 06/09/24 12:00 Urine Protein Negative (Negative) 06/09/24 12:00 Urine Glucose (UA) Negative (Negative) 06/09/24 12:00 Urine Ketones Negative (Negative) 06/09/24 12:00 Urine Nitrite Negative (Negative) 06/09/24 12:00 Ur Leukocyte Esterase Negative (Negative) 06/09/24 12:00
--- NOTE | 2024-06-10 07:45 | Anesthesiology Progress Note ---
Date of Service June 10, 2024 Anesthesia Post Procedure Vital Signs Vital Signs: Temp Pulse Pulse Resp BP BP Pulse Ox 06/10/24 07:25 123/87 06/10/24 05:39 139 H 18 132/92 93 06/10/24 04:47 139 H 20 142/88 H 91 06/10/24 03:41 36.5 C 137 H 18 133/93 93 06/10/24 02:24 95 06/10/24 02:19 138 H 117/88 06/10/24 01:52 139 H 111/80 06/10/24 01:29 138 H 16 128/94 92 06/10/24 00:23 137 H 20 139/108 H 93 06/09/24 23:15 36.3 C L 136 H 18 146/115 H 92 06/09/24 21:44 138 H 06/09/24 21:30 06/09/24 21:21 36.7 C 138 H 18 136/96 97 06/09/24 20:22 139 H 21 138/111 H 95 06/09/24 15:08 18 96 06/09/24 14:00 141 H 20 94 06/09/24 13:33 144 H 19 95 06/09/24 13:24 144 H 21 94 06/09/24 13:00 140/114 H 06/09/24 13:00 140/114 H 06/09/24 13:00 140/114 H 06/09/24 13:00 140/114 H 06/09/24 13:00 140/114 H 06/09/24 13:00 140/114 H 06/09/24 13:00 140/114 H 06/09/24 13:00 142 H 23 95 06/09/24 12:51 139 H 21 95 06/09/24 12:46 142/112 H 06/09/24 12:46 142/112 H 06/09/24 12:46 142/112 H 06/09/24 12:45 140 H 21 95 06/09/24 12:42 140 H 24 96 06/09/24 12:30 150/119 H 06/09/24 12:21 140 H 23 96 06/09/24 12:20 18 06/09/24 12:15 147/119 H 06/09/24 12:09 139 H 23 96 06/09/24 12:00 139 H 96 06/09/24 12:00 152/120 H 06/09/24 12:00 152/120 H 06/09/24 11:54 139 H 22 95 06/09/24 11:50 15 06/09/24 11:45 138 H 95 06/09/24 11:45 136/116 H 06/09/24 11:45 136/116 H 06/09/24 11:45 136/116 H 06/09/24 11:45 136/116 H 06/09/24 11:45 136/116 H 06/09/24 11:36 138 H 96 06/09/24 11:12 138 H 94 06/09/24 11:07 138 H 147/103 H 06/09/24 11:00 147/103 H 06/09/24 11:00 138 H 94 06/09/24 11:00 147/103 H 06/09/24 10:57 137 H 93 06/09/24 10:47 137 H 136/95 06/09/24 10:45 136/95 06/09/24 10:45 136/95 06/09/24 10:45 138 H 95 06/09/24 10:45 138 H 136/95 06/09/24 10:33 139 H 94 06/09/24 10:30 148/121 H 06/09/24 10:30 148/121 H 06/09/24 10:27 140 H 90 06/09/24 10:15 148/101 H 06/09/24 10:06 138 H 91 06/09/24 09:45 133/108 H 06/09/24 09:45 133/108 H 06/09/24 09:43 143 H 134/108 H 06/09/24 09:39 143 H 95 06/09/24 09:33 144 H 94 06/09/24 09:30 134/108 H 06/09/24 09:30 134/108 H 06/09/24 09:27 145 H 94 06/09/24 09:19 149 H 156/116 H 06/09/24 09:00 171/132 H 06/09/24 08:58 06/09/24 08:51 148 H 06/09/24 08:46 173/125 H 06/09/24 08:36 152 H 06/09/24 08:20 36.7 C 150 H 16 186/127 H 96 O2 Del Method O2 Flow Rate 06/10/24 07:25 06/10/24 05:39 Nasal Cannula 3 06/10/24 04:47 Nasal Cannula 06/10/24 03:41 Nasal Cannula 3 06/10/24 02:24 Nasal Cannula 3 06/10/24 02:19 06/10/24 01:52 06/10/24 01:29 Nasal Cannula 3 06/10/24 00:23 Nasal Cannula 2 06/09/24 23:15 Room Air 06/09/24 21:44 06/09/24 21:30 2 06/09/24 21:21 Nasal Cannula 3 06/09/24 20:22 Room Air 06/09/24 15:08 Nasal Cannula 2 06/09/24 14:00 06/09/24 13:33 06/09/24 13:24 06/09/24 13:00 06/09/24 13:00 06/09/24 13:00 06/09/24 13:00 06/09/24 13:00 06/09/24 13:00 06/09/24 13:00 06/09/24 13:00 06/09/24 12:51 06/09/24 12:46 06/09/24 12:46 06/09/24 12:46 06/09/24 12:45 06/09/24 12:42 06/09/24 12:30 06/09/24 12:21 06/09/24 12:20 06/09/24 12:15 06/09/24 12:09 06/09/24 12:00 Nasal Cannula 2 06/09/24 12:00 06/09/24 12:00 06/09/24 11:54 06/09/24 11:50 06/09/24 11:45 06/09/24 11:45 06/09/24 11:45 06/09/24 11:45 06/09/24 11:45 06/09/24 11:45 06/09/24 11:36 06/09/24 11:12 06/09/24 11:07 06/09/24 11:00 06/09/24 11:00 06/09/24 11:00 06/09/24 10:57 06/09/24 10:47 06/09/24 10:45 06/09/24 10:45 06/09/24 10:45 06/09/24 10:45 06/09/24 10:33 06/09/24 10:30 06/09/24 10:30 06/09/24 10:27 06/09/24 10:15 06/09/24 10:06 06/09/24 09:45 06/09/24 09:45 06/09/24 09:43 06/09/24 09:39 06/09/24 09:33 06/09/24 09:30 06/09/24 09:30 06/09/24 09:27 06/09/24 09:19 06/09/24 09:00 06/09/24 08:58 Room Air 06/09/24 08:51 06/09/24 08:46 06/09/24 08:36 06/09/24 08:20 Room Air Transfer of Care Handoff Completed per policy Notes Mental Status: alert / awake / arousable Patient Amnestic to Procedure: Yes Nausea / Vomiting: adequately controlled Pain: adequately controlled Airway Patency, RR, SpO2: stable & adequate BP & HR: stable & adequate Hydration State: stable & adequate Anesthetic Complications: no major complications apparent
[2024-06-10] MEDS ORDERED: LIDOCAINE 2% 2 ML VIAL/AMP(20MG/ML) INFIL ONE (07:48)
[2024-06-10] MEDS ORDERED: PROPOFOL IV EMULSION 10 MG/ML 20 ML VIAL IV ONE (07:48)
[2024-06-10] MEDS: VITAMIN B COMPLEX TAB PO SCH (08:40)
[2024-06-10] MEDS: CALCIUM 600MG + VIT D 400 IU TAB PO SCH (08:40)
[2024-06-10] MEDS: MULTIVITAMIN TAB PO SCH (08:42)
[2024-06-10] MEDS: ASCORBIC ACID 500 MG TAB PO SCH (08:43)
[2024-06-10] MEDS: METOPROLOL SUCC 25MG EXT REL TAB PO SCH ×2 (08:50→20:34)
--- NOTE | 2024-06-10 08:55 | Electrocardiogram Report ---
Test Reason : Blood Pressure : */* mmHG Vent. Rate : 139 BPM Atrial Rate : 278 BPM P-R Int : * ms QRS Dur : 130 ms QT Int : 400 ms P-R-T Axes : * 15 68 degrees QTcB Int : 608 ms Atrial flutter with 2:1 A-V conduction Abnormal ECG When compared with ECG of 09-Jun-2024 08:41, HR has decreased by 11 bpm Otherwise no significant change Confirmed by Sanjay Kenney ([id number]) on 06/10/2024 8:55:28 AM Referred By: REFERRED SELF Confirmed By: Sanjay Kenney
[2024-06-10] MEDS ORDERED: ADVANCED PROBIOTIC 625 MG CAPSULE PO SCH (09:00)
[2024-06-10] MEDS ORDERED: OMEGA-3 (PURIFIED FISH OIL) 1 GM CAP PO SCH (09:00)
--- NOTE | 2024-06-10 09:01 | Electrocardiogram Report ---
Test Reason : Blood Pressure : */* mmHG Vent. Rate : 54 BPM Atrial Rate : 54 BPM P-R Int : 138 ms QRS Dur : 82 ms QT Int : 456 ms P-R-T Axes : 22 -2 -10 degrees QTcB Int : 432 ms Sinus bradycardia Left atrial enlargement Poor R wave progression, consider anterior RI vs. lead placement vs. LVH Nonspecific T wave abnormality Anterior leads Abnormal ECG When compared with ECG of 10-Jun-2024 05:28, Atrial flutter no longer present HR has decreased by 85 bpm Confirmed by Sanjay Kenney ([id number]) on 06/10/2024 9:01:18 AM Referred By: REFERRED SELF Confirmed By: Sanjay Kenney
[2024-06-10 09:17] LABS: Hematocrit (blood only) 41.7 % (37.0-47.0); Mean Corpuscular Hemoglobin 31.7 pg (25.0-34.0); Mean Corpuscular Hgb Conc 33.6 g/dL (32.0-36.0); Mean Corpuscular Volume 94.3 fL (80.0-100.0); Mean Platelet Volume 11.4 fL (9.4-12.4); Platelet Count 216 K/uL (130-400); RDW Coefficient of Variation 13.2 % (11.5-14.5); RDW Standard Deviation 45.4 fL (36.4-46.3); Red Blood Count 4.42 M/uL (4.20-5.40); White Blood Count 7.03 K/ul (4.8-10.8)
--- NOTE | 2024-06-10 09:17 | XRay Report ---
XR chest 1V portable CLINICAL HISTORY: hypoxia COMPARISON STUDY: Chest radiograph June 09, 2024. FINDINGS: There is no pneumothorax. A trace left pleural effusion is present. Bibasilar opacities hav e increased. Cardiomegaly is again noted with extensive mitral annular calcification. No radiographic evidence for pulmonary edema. IMPRESSION: 1. Increase in bibasilar airspace opacities suggestive of pneumonia or aspiration pneumonitis. Radiog raphic follow-up to ensure resolution is recommended. 2. Cardiomegaly. ACT 112: Negative or not required by law. Electronically signed by: Alfredito Lyon M.D. 06/10/2024 9:15 AM
[2024-06-10 09:51] LABS: BUN Creatinine Ratio 21.5 (10-20); Calcium 8.4 mg/dl (8.6-10.3); Creatinine Clr Calc Pharmacy 44.5 ml/min; Potassium 4.2 mmol/L (3.5-5.1)
[2024-06-10] MEDS: ALBUT/IPRATROP 3MG/0.5MG NEB 3 ML VIAL NEB SCH (10:08)
--- NOTE | 2024-06-10 10:20 | Cardioversion ---
Date of Service June 10, 2024 Electrical Cardioversion Rpt Electrical Cardioversion Report Patient was seen and examined. Procedure and risks of synchronized cardioversion, APRIL guided discussed in detail. Informed consent obtained Formal timeout performed. Patient sedated via anesthesia consultation with continuous heart rate blood pressure oxygen saturation and end-tidal CO2 monitoring. Transesophageal echocardiogram performed without difficulty. Formal report under separate cover No contraindications to synchronized cardioversion. Synchronized cardioversion performed using single 150 J biphasic shock with successful conversion to sinus/sinus bradycardia. Patient aroused having tolerated well
--- NOTE | 2024-06-10 10:25 | Cardiology Progress Note ---
Date of Service June 10, 2024 Assessment & Plan (1) Atrial flutter with rapid ventricular response: (2) Acute heart failure with reduced ejection fraction and diastolic dysfunction: Plan Patient admitted with SOB/palpitations. Diagnosed with atrial flutter RVR in the 150's. Duration unknown, possibly several weeks. Treated initially in ER with IV diltiazem and IV adenosine, failing to convert to NSR. Started on IV metoprolol and then transitioned to oral metoprolol HR's trending lower since admission. Currently in the 130's. Likely will need APRIL/CV later this admission in order to restore NSR. Chest xray reveals mild pulm edema/small pleural effusions. Treated with IV lasix in the ER. Patient reports frequent urination since admission. SOB improving over the last few hours Monitor I+O's. Monitor electrolytes and renal function Daily weight with standing scale. Echo reveals moderately reduced LVEF 35%. 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 Start GDMT as BP tolerates after beta elizabeth is titrated. 06/10/2024 1. Atrial flutter with rapid response, 2-1 conduction uncertain duration possibly extended period prior to hospital presentation. Underwent synchronized electrical cardioversion, APRIL guided this morning with successful return to sinus bradycardia. 2. Cardiomyopathy with reduced ejection fraction, moderate mitral intra cusp insufficiency possibly arrhythmia induced. LV systolic function slightly improved on APRIL this morning. Currently not manifesting signs of heart failure but chest x-ray pending Relatively soft blood pressures after procedure this morning and medication administrations Plan: Continue anticoagulation with IV heparin, transition to oral Eliquis Continue metoprolol succinate at 25 mg twice per day as heart rate and blood pressure allows [place] heart failure therapies with Entresto low-dose diuretic, spironolactoneas blood pressure allows No further oral or IV diltiazem Discussed management of atrial flutter in detail with patient and chandana perlaer if recurrence would likely warrant antiarrhythmic therapy. Okay to continue current Parkinson medications I spent a total of 60 minutes on the date of service in preparation, delivery, and documentation of the care provided to this patient, excluding any time spent in the performance of separately billed services. 06/09/24 13:29 Guevara Driver MD Admission and Anticipated Discharge Date Admission Date: June 09, 2024 Subjective Patient seen both pre and post cardioversion. See APRIL guided cardioversion report. Currently awake and feeling well. Blood pressure mildly soft and heart rate low after cardioversion but received multiple drugs and medication infusion (diltiazem) overnight. No respiratory distress. No worsening edema. Mild cough Review of Systems Review of Systems: All systems reviewed & are unremarkable except as noted in Subjective Physical Exam Constitutional: WD/WN, vitals as above average body habitus; no acute distress ENMT: external ear and nose normal, oropharynx normal Neck: trachea midline, no thyromegaly Respiratory: no labored breathing Auscultation: + diminished lung sounds; no crackles and no rales Cardiovascular: Rate/Rhythm: regular rate and regular rhythm Heart Sounds: + murmur (II/ systolic murmur) Vessels: no JVD Extremities: + edema (trace pretibial edema) Gastrointestinal (Abdomen): normal bowel sounds, soft, nontender, no hepatosplenomegaly Musculoskeletal: no cyanosis or clubbing, extremities motor strength 5/5 Skin: no rashes, warm and dry Neurologic: PERRL, EOMI, accommodation nl, no face palsy, no dysarthria Motor/Sensory: + tremor Results & Data Vital Signs (Past 12 Hours) Vital Signs Temp Pulse Pulse Pulse Resp BP BP 06/10/24 10:08 68 16 06/10/24 09:16 06/10/24 09:14 59 L 18 130/77 06/10/24 08:47 58 L 18 106/69 06/10/24 08:22 68 06/10/24 08:17 36.6 C 62 18 96/70 L 06/10/24 08:01 56 L 14 95/58 L 06/10/24 07:42 54 L 14 103/64 06/10/24 07:25 123/87 06/10/24 07:00 139 H 06/10/24 05:39 139 H 18 132/92 06/10/24 04:47 139 H 20 142/88 H 06/10/24 03:41 36.5 C 137 H 18 133/93 06/10/24 02:24 06/10/24 02:19 138 H 117/88 06/10/24 01:52 139 H 111/80 06/10/24 01:29 138 H 16 128/94 06/10/24 00:23 137 H 20 139/108 H 06/09/24 23:15 36.3 C L 136 H 18 146/115 H Pulse Ox O2 Del Method O2 Flow Rate 06/10/24 10:08 96 Nasal Cannula 2 06/10/24 09:16 Nasal Cannula 2 06/10/24 09:14 95 Nasal Cannula 2 06/10/24 08:47 93 Nasal Cannula 2 06/10/24 08:22 06/10/24 08:17 88 L Room Air 06/10/24 08:01 93 Room Air 06/10/24 07:42 95 Oxymask 10 06/10/24 07:25 06/10/24 07:00 06/10/24 05:39 93 Nasal Cannula 3 06/10/24 04:47 91 Nasal Cannula 06/10/24 03:41 93 Nasal Cannula 3 06/10/24 02:24 95 Nasal Cannula 3 06/10/24 02:19 06/10/24 01:52 06/10/24 01:29 92 Nasal Cannula 3 06/10/24 00:23 93 Nasal Cannula 2 06/09/24 23:15 92 Room Air
[2024-06-10 10:33] LABS: ANTI-Xa, LMWH(Low Molecular Wt 0.13 IU/ML (< 0.10)
[2024-06-10 11:21] LABS: ANTI-Xa, UFH(UnfractionatedHep 0.16 IU/ml (0.3-0.7)
[2024-06-10] MEDS: AMPICILLIN/SULBACTAM SOD 3,000 MG/100 ML BAG IV SCH (11:38)
[2024-06-10] MEDS: HEPARIN SOD (PORCINE) 1000 UNIT/ML IV ONE (12:30)
--- NOTE | 2024-06-10 13:58 | Hospitalist Progress Note ---
Date of Service June 10, 2024 Assessment & Plan (1) Acute heart failure with reduced ejection fraction and diastolic dysfunction: (2) Atrial flutter with rapid ventricular response: (3) Parkinson disease: Plan This is an 78yo F with a PMH of Parkinson's disease, IPMN who presents with weakness and fatigue worsening over the past few weeks and was found to have a flutter with RVR. A flutter with RVR Acute heart failure with reduced EF Initially treated in ER with IV diltiazem and IV adenosine, failing to convert to NSR Per cardiology - giving 3rd dose of IV Lopressor 5mg in ED as well as IV lasix 20mg x 1 Continue with PO lopressor and PRN IV lopressor for HR >130 Due to ongoing uncontrolled rates overnight IV diltiazem drip was initiated Echo-EF 35 to 40%, moderate to severe MR, moderate TR Cardiomyopathy likely tachycardia related s/p successful APRIL guided cardioversion this a.m., patient converted to sinus bradycardia Continue with metoprolol succinate 25 mg BID with the addition of heart failure GDMT ( Entresto, low-dose diuretic) as blood pressure allows Continue IV heparin with plan to transition to oral Eliquis Plan discussed with cardiology, Dr. Driver Hypoxia Possible Aspiration Pneumonitis Post APRIL patient developed cough, some coarse breath sounds, and 2L O2 requirement CXR - Increase in bibasilar airspace opacities suggestive of pneumonia or aspiration pneumonitis. Noted CXR yesterday suggesting possible early pneumonia in the lung bases. Patient afebrile, no leukocytosis, full RVP negative. Given concern for aspiration, will start IV Unasyn and nebulizers Wean O2 as able Elevated troponin HS troponin 29.1 -> 34.3 Likely demand ischemia in setting of arrhythmia Parkinson's disease Worsening symptoms over past few months - follows with Dr. Le of [facility] and was prescribed a new regimen of carbidopa-levodopa to be started on 06/09 Admitting provider reached out over [employer] with update of her admission - he recommends keeping her current regimen for now - 25/100mg extended release 2 tabs @6:30, 1130, 1630 and 1 tab @2130. Coordinated with pharmacy to adjust dosing based on formulary Will need outpatient follow up with neurology at discharge DVT PROPHYLAXIS IV heparin Dispo: anticipate discharge home, likely 1 to 2 days I spent a total of 35 minutes coordinating, documenting, and providing care for this patient excluding time spent in the performance of separately billed services. This included personally reviewing all current laboratories and imaging studies, medication reconciliation, outpatient chart review, and discussion with specialists. Admission and Anticipated Discharge Date Admission Date: June 09, 2024 Supervising Physician Co-Signing Physician Notes I have seen and discussed the case with the collaborating advanced practitioner. I agree with the above PN. I have reviewed and confirmed the patients medical history, the findings on physical examination, and the patients diagnosis and treatment plan with Debi MORSE and agree with the information documented. In short, Ms. Willingham is an 78-year-old female admitted for a flutter with RVR. Patient failed multiple IV therapies and planned for cardioversion this morning with successful conversion to NSR. Plan to transition to eliquis, continue metoprolol Course complicated by aspiration, now on unasyn I spent a total of 10 minutes coordinating, documenting, and providing care for this patient excluding time spent in the performance of separately billed services. All of the aforementioned completed outside of collaborating with the assigned advanced practitioner for a full treatment plan. I have reviewed the advanced practitioner's documentation, and I agree with, and take responsibility for the plan of care Subjective Follow-up for atrial flutter with RVR. Patient seen and examined after cardioversion. Shortly after procedure, patient was coughing with some coarse breath sounds. She is also requiring 2 L of oxygen via nasal cannula. Cardioversion was successful this a.m. and patient converted to sinus bradycardia. Patient reports she is feeling well. No chest pain or palpitations. Denies shortness of breath. No lightheadedness or dizziness. Physical Exam Constitutional: WD/WN, vitals as above no acute distress Respiratory: normal respiratory effort; no respiratory distress Auscultation: + diminished lung sounds (bilateral bases) Cardiovascular: Rate/Rhythm: regular rate and regular rhythm Vessels: normal peripheral pulses Extremities: no edema Skin: no rashes, warm and dry Neurologic: no focal motor deficits Psychiatric: A+Ox3, euthymic affect Results & Data Results & Data Vital Signs (Past 12 Hours) Vital Signs Temp Pulse Pulse Pulse Resp BP BP 06/10/24 11:23 36.4 C L 66 16 117/82 06/10/24 11:02 06/10/24 10:35 36.8 C 68 18 111/70 06/10/24 10:08 68 16 06/10/24 09:16 06/10/24 09:14 59 L 18 130/77 06/10/24 08:47 58 L 18 106/69 06/10/24 08:22 68 06/10/24 08:17 36.6 C 62 18 96/70 L 06/10/24 08:01 56 L 14 95/58 L 06/10/24 07:42 54 L 14 103/64 06/10/24 07:25 123/87 06/10/24 07:00 139 H 06/10/24 05:39 139 H 18 132/92 06/10/24 04:47 139 H 20 142/88 H 06/10/24 03:41 36.5 C 137 H 18 133/93 06/10/24 02:24 06/10/24 02:19 138 H 117/88 06/10/24 01:52 139 H 111/80 Pulse Ox Pulse Ox O2 Del Method O2 Del Method O2 Flow Rate O2 Flow Rate 06/10/24 11:23 93 Nasal Cannula 2.0 06/10/24 11:02 93 Nasal Cannula 2 06/10/24 10:35 93 Nasal Cannula 2 06/10/24 10:08 96 Nasal Cannula 2 06/10/24 09:16 Nasal Cannula 2 06/10/24 09:14 95 Nasal Cannula 2 06/10/24 08:47 93 Nasal Cannula 2 06/10/24 08:22 06/10/24 08:17 88 L Room Air 06/10/24 08:01 93 Room Air 06/10/24 07:42 95 Oxymask 10 06/10/24 07:25 06/10/24 07:00 06/10/24 05:39 93 Nasal Cannula 3 06/10/24 04:47 91 Nasal Cannula 06/10/24 03:41 93 Nasal Cannula 3 06/10/24 02:24 95 Nasal Cannula 3 06/10/24 02:19 06/10/24 01:52 Laboratory Results Short CBC 06/10/24 Range/Units 08:27 WBC 7.03 (4.8-10.8) K/ul Hgb 14.0 (12.0-16.0) g/dl Hct 41.7 (37.0-47.0) % Plt Count 216 (130-400) K/uL [facility] 06/10/24 08:27 Sodium 137 Potassium 4.2 Chloride 105 Carbon Dioxide 23 BUN 20 Creatinine 0.93 Glucose 98 Calcium 8.4 L
[2024-06-10] MEDS ORDERED: METOPROLOL TARTRATE 50 MG TAB PO SCH (14:00)
[2024-06-10] MEDS: BENZOCAINE/TETRACAIN/BUTAM 50 APPLN/5 GM CAN EXT ONE (15:16)
[2024-06-10 19:02] LABS: ANTI-Xa, UFH(UnfractionatedHep 0.23 IU/ml (0.3-0.7)
[2024-06-10] MEDS: VALSARTAN/SACUBITRIL 26/24MG TAB PO SCH (20:34)
[2024-06-11 02:07] LABS: ANTI-Xa, UFH(UnfractionatedHep 0.24 IU/ml (0.3-0.7)
[2024-06-11 07:22] LABS: Hematocrit (blood only) 43.6 % (37.0-47.0); Hemoglobin 14.8 g/dl (12.0-16.0); Mean Corpuscular Hemoglobin 32.2 pg (25.0-34.0); Mean Corpuscular Hgb Conc 33.9 g/dL (32.0-36.0); Mean Platelet Volume 11.2 fL (9.4-12.4); Platelet Count 214 K/uL (130-400); RDW Coefficient of Variation 13.4 % (11.5-14.5); RDW Standard Deviation 46.6 fL (36.4-46.3); Red Blood Count 4.59 M/uL (4.20-5.40); White Blood Count 8.06 K/ul (4.8-10.8)
[2024-06-11 07:32] LABS: BUN Creatinine Ratio 19.5 (10-20); Calcium 8.7 mg/dl (8.6-10.3); Creatinine Clr Calc Pharmacy 36.8 ml/min; Potassium 3.9 mmol/L (3.5-5.1)
[2024-06-11 07:40] LABS: ANTI-Xa, UFH(UnfractionatedHep 0.24 IU/ml (0.3-0.7)
--- NOTE | 2024-06-11 09:17 | Hospitalist Progress Note ---
Date of Service June 11, 2024 Assessment & Plan (1) Acute heart failure with reduced ejection fraction and diastolic dysfunction: (2) Atrial flutter with rapid ventricular response: (3) Parkinson disease: Plan This is an 78yo F with a PMH of Parkinson's disease, IPMN who presents with weakness and fatigue worsening over the past few weeks and was found to have a flutter with RVR. 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 Le of [facility] -Prescribed a new regimen of carbidopa-levodopa to be started on 06/09 After discussion via [place] text, recommending to continue current regimen for now Follow-up with neurology outpatient after DC Full code DVT prophylaxis: Heparin drip Dispo: anticipate discharge home, likely 1 to 2 days I spent a total of 45 minutes coordinating, documenting, and providing care for this patient excluding time spent in the performance of separately billed services. This included personally reviewing all current laboratories and imaging studies, medication reconciliation, outpatient chart review, and discussion with specialists. Admission and Anticipated Discharge Date Admission Date: June 09, 2024 Supervising Physician Co-Signing Physician Notes I have seen and discussed the case with the collaborating advanced practitioner. I agree with the above PN. I have reviewed and confirmed the patients medical history, the findings on physical examination, and the patients diagnosis and treatment plan with Brunilda MORSE and agree with the information documented. In short, Ms. Willingham is an 78-year-old female admitted for a flutter with RVR. Patient failed multiple IV therapies and planned for cardioversion 06/10 with successful conversion to NSR. [facility], continue metoprolol increased to 25 bid Course complicated by aspiration s/p APRIL, now on unasyn Wean oxygen as able, monitor on tele PT recommends home I spent a total of 10 minutes coordinating, documenting, and providing care for this patient excluding time spent in the performance of separately billed services. All of the aforementioned completed outside of collaborating with the assigned advanced practitioner for a full treatment plan. I have reviewed the advanced practitioner's documentation, and I agree with, and take responsibility for the plan of care Subjective Patient seen and examined. Denies any complaints. No apparent distress. Reports feeling better today. Denies any nausea/vomiting/abdominal pain. Review of Systems Review of Systems: All systems reviewed & are unremarkable except as noted in HPI & below Physical Exam Constitutional: WD/WN, vitals as above Eyes: PERRL, conjunctivae normal, anicteric sclerae ENMT: external ear and nose normal, oropharynx normal Neck: trachea midline, no thyromegaly Respiratory: normal respiratory effort, lungs clear to auscultation Cardiovascular: RRR, no murmur, no edema Gastrointestinal (Abdomen): normal bowel sounds, soft, nontender, no hepatosplenomegaly Musculoskeletal: no cyanosis or clubbing, extremities motor strength 5/5 Skin: no rashes, warm and dry Neurologic: PERRL, EOMI, accommodation nl, no face palsy, no dysarthria Psychiatric: A+Ox3, euthymic affect Lymphatic: no cervical or axillary lymphadenopathy Results & Data Results & Data Vital Signs (Past 12 Hours) Vital Signs Temp Pulse Pulse Resp BP Pulse Ox O2 Del Method 06/11/24 07:57 77 17 92 Room Air 06/11/24 07:53 36.8 C 74 16 137/88 93 Room Air 06/11/24 07:21 75 06/11/24 02:48 36.5 C 62 18 107/61 92 Nasal Cannula 06/10/24 22:44 36.3 C L 76 18 98/60 L 91 Room Air 06/10/24 21:55 68 Laboratory Results Laboratory Results WBC 8.06 K/ul (4.8-10.8) 06/11/24 06:54 RBC 4.59 M/uL (4.20-5.40) 06/11/24 06:54 Hgb 14.8 g/dl (12.0-16.0) 06/11/24 06:54 Hct 43.6 % (37.0-47.0) 06/11/24 06:54 MCV 95.0 fL (80.0-100.0) 06/11/24 06:54 MCH 32.2 pg (25.0-34.0) 06/11/24 06:54 MCHC 33.9 g/dL (32.0-36.0) 06/11/24 06:54 RDW Std Deviation 46.6 fL (36.4-46.3) H 06/11/24 06:54 RDW Coeff of Adam 13.4 % (11.5-14.5) 06/11/24 06:54 Plt Count 214 K/uL (130-400) 06/11/24 06:54 MPV 11.2 fL (9.4-12.4) 06/11/24 06:54 Immature Gran % (Auto) 0.3 % 06/09/24 08:40 Neut % (Auto) 68.6 % 06/09/24 08:40 Lymph % (Auto) 24.4 % 06/09/24 08:40 [place] % (Auto) 5.5 % 06/09/24 08:40 Eos % (Auto) 0.7 % 06/09/24 08:40 Baso % (Auto) 0.5 % 06/09/24 08:40 Neut # (Auto) 5.00 K/uL (1.40-6.50) 06/09/24 08:40 Lymph # (Auto) 1.78 K/uL (1.20-3.40) 06/09/24 08:40 [place] # (Auto) 0.40 K/uL (0.11-0.59) 06/09/24 08:40 Eos # (Auto) 0.05 K/uL (0.00-0.50) 06/09/24 08:40 Baso # (Auto) 0.04 K/uL (0.00-0.20) 06/09/24 08:40 Immature Gran # (Auto) 0.02 K/uL (0.01-0.20) 06/09/24 08:40 PT 10.9 Seconds (9.0-12.0) 06/09/24 08:40 INR 1.0 (0.9-1.1) 06/09/24 08:40 APTT 26 Seconds (21-31) 06/09/24 08:40 PTT Ratio 1.0 06/09/24 08:40 Heparin Anti-Xa, LM Wt 0.13 IU/ML (< 0.10) 06/10/24 08:27 Heparin Anti-Xa, Unfract 0.24 IU/ml (0.3-0.7) L 06/11/24 06:54 Sodium 141 mmol/L (136-145) 06/11/24 06:54 Potassium 3.9 mmol/L (3.5-5.1) 06/11/24 06:54 Chloride 108 mmol/L (98-107) H 06/11/24 06:54 Carbon Dioxide 25 mmol/L (21-32) 06/11/24 06:54 Anion Gap 8 (3-11) 06/11/24 06:54 BUN 22 mg/dl (6-23) 06/11/24 06:54 Creatinine 1.13 mg/dl (0.6-1.2) 06/11/24 06:54 Est Cr Clr Drug Dosing 36.8 ml/min 06/11/24 06:54 eGFR 49.18 06/11/24 06:54 BUN/Creatinine Ratio 19.5 (10-20) 06/11/24 06:54 Glucose 136 mg/dl (70-99(Fasting)) H 06/11/24 06:54 Calcium 8.7 mg/dl (8.6-10.3) 06/11/24 06:54 Magnesium 2.0 mg/dl (1.7-2.4) 06/10/24 08:27 Total Bilirubin 0.7 mg/dl (0.2-1.0) 06/09/24 08:40 AST 30 U/L (13-39) 06/09/24 08:40 ALT 7 U/L (7-52) 06/09/24 08:40 Alkaline Phosphatase 65 U/L (34-104) 06/09/24 08:40 Troponin I High Sens 34.3 pg/ml (0-14) H 06/09/24 10:55 B-Natriuretic Peptide 858 pg/ml (0-100) H 06/09/24 08:40 Total Protein 6.8 gm/dl (6.0-8.3) 06/09/24 08:40 Albumin 4.2 gm/dl (3.4-5.0) 06/09/24 08:40 Globulin 2.6 gm/dl (2.5-4.0) 06/09/24 08:40 Albumin/Globulin Ratio 1.6 (0.9-2) 06/09/24 08:40 Procalcitonin 0.05 ng/ml (0-0.5) 06/10/24 10:17 TSH 4.182 uIu/ml (0.300-4.500) 06/09/24 08:40 Urine Color Yellow 06/09/24 12:00 Urine Appearance Clear (Clear) 06/09/24 12:00 Urine pH 5.5 (4.5-7.5) 06/09/24 12:00 Ur Specific [place] 1.012 (1.000-1.030) 06/09/24 12:00 Urine Protein Negative (Negative) 06/09/24 12:00 Urine Glucose (UA) Negative (Negative) 06/09/24 12:00 Urine Ketones Negative (Negative) 06/09/24 12:00 Urine Blood Negative (Negative) 06/09/24 12:00 Urine Nitrite Negative (Negative) 06/09/24 12:00 Urine Bilirubin Negative (Negative) 06/09/24 12:00 Urine Urobilinogen Negative (Negative) 06/09/24 12:00 Ur Leukocyte Esterase Negative (Negative) 06/09/24 12:00 Adenovirus (PCR) Not Detected (NotDetected) 06/09/24 11:58 B. pertussis DNA (PCR) Not Detected (NotDetected) 06/09/24 11:58 B.parapertussis DNA PCR Not Detected (NotDetected) 06/09/24 11:58 C. pneumoniae DNA (PCR) Not Detected (NotDetected) 06/09/24 11:58 Coronavirus OC43 (PCR) Not Detected (NotDetected) 06/09/24 11:58 Coronavirus HKU1 (PCR) Not Detected (NotDetected) 06/09/24 11:58 Coronavirus 229E (PCR) Not Detected (NotDetected) 06/09/24 11:58 SARS-CoV-2 (PCR) Not Detected (NotDetected) 06/09/24 11:58 Coronavirus NL63 (PCR) Not Detected (NotDetected) 06/09/24 11:58 Human Metapneumovir PCR Not Detected (NotDetected) 06/09/24 11:58 Influenza Type A (PCR) Not Detected (NotDetected) 06/09/24 11:58 Influenza Type B (PCR) Not Detected (NotDetected) 06/09/24 11:58 M. pneumoniae (PCR) Not Detected (NotDetected) 06/09/24 11:58 Parainfluenza 1 (PCR) Not Detected (NotDetected) 06/09/24 11:58 Parainfluenza 2 (PCR) Not Detected (NotDetected) 06/09/24 11:58 Parainfluenza 3 (PCR) Not Detected (NotDetected) 06/09/24 11:58 Parainfluenza 4 (PCR) Not Detected (NotDetected) 06/09/24 11:58 RSV (PCR) Not Detected (NotDetected) 06/09/24 11:58 Entero/Rhino (PCR) Not Detected (NotDetected) 06/09/24 11:[address] 06/10/24 00:31 EXAM: CT head/brain wo con CLINICAL HISTORY: smith, heparin TECHNIQUE: Multiple axial images are obtained from the skull base to the vertex without contrast. CT scan was performed according to ALARA (as low as reasonable achievable). COMPARISON: None. FINDINGS: There is cerebral atrophy. No evidence of space occupying lesion, hemorrhage, edema, mass effect, midline shift, extra axial collection, or hydrocephalus is noted. Basal cisterns are symmetric and normal in size and configuration. There are scattered periventricular hypodensities as can be seen with chronic microvascular ischemic changes. The carr-white matter differentiation is preserved. Visualized paranasal sinuses and mastoid air cells are well aerated. Orbital contents are within normal limits. Bony structures are intact. IMPRESSION: 1. No evidence of acute intracranial abnormality is demonstrated. 2. Chronic microvascular ischemic changes. 3. Cerebral atrophy. Electronically signed by Rios Lau 06-10-2024 01:47 AM Chest X-Ray 06/10/24 08:35 XR chest 1V portable CLINICAL HISTORY: hypoxia COMPARISON STUDY: Chest radiograph June 09, 2024. FINDINGS: There is no pneumothorax. A trace left pleural effusion is present. Bibasilar opacities have increased. Cardiomegaly is again noted with extensive mitral annular calcification. No radiographic evidence for pulmonary edema. IMPRESSION: 1. Increase in bibasilar airspace opacities suggestive of pneumonia or aspiration pneumonitis. Radiographic follow-up to ensure resolution is recommended. 2. Cardiomegaly. ACT 112: Negative or not required by law. Electronically signed by: Alfredito Lyon M.D. 06/10/2024 9:15 AM
[2024-06-11] MEDS: METOPROLOL SUCC 25MG EXT REL TAB PO SCH (09:31)
[2024-06-11] MEDS: FUROSEMIDE 20 MG TAB PO SCH (09:36)
[2024-06-11] MEDS: SPIRONOLACTONE 12.5 MG TAB PO SCH (09:36)
[2024-06-11] MEDS ORDERED: SODIUM CHLORIDE 0.65% NA SOLN 45 ML (OCEAN) PRN (09:37)
[2024-06-11] MEDS ORDERED: ARTIFICIAL TEARS OPB PRN (09:37)
[2024-06-11] MEDS: VALSARTAN/SACUBITRIL 26/24MG TAB PO SCH (09:39)
--- NOTE | 2024-06-11 09:39 | Cardiology Progress Note ---
Date of Service June 11, 2024 Assessment & Plan (1) Atrial flutter with rapid ventricular response: (2) Acute heart failure with reduced ejection fraction and diastolic dysfunction: Plan Patient admitted with SOB/palpitations. Diagnosed with atrial flutter RVR in the 150's. Duration unknown, possibly several weeks. Treated initially in ER with IV diltiazem and IV adenosine, failing to convert to NSR. Started on IV metoprolol and then transitioned to oral metoprolol HR's trending lower since admission. Currently in the 130's. Likely will need APRIL/CV later this admission in order to restore NSR. Chest xray reveals mild pulm edema/small pleural effusions. Treated with IV lasix in the ER. Patient reports frequent urination since admission. SOB improving over the last few hours Monitor I+O's. Monitor electrolytes and renal function Daily weight with standing scale. Echo reveals moderately reduced LVEF 35%. 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 Start GDMT as BP tolerates after beta elizabeth is titrated. 06/10/2024 1. Atrial flutter with rapid response, 2-1 conduction uncertain duration possibly extended period prior to hospital presentation. Underwent synchronized electrical cardioversion, APRIL guided this morning with successful return to sinus bradycardia. 2. Cardiomyopathy with reduced ejection fraction, moderate mitral intra cusp insufficiency possibly arrhythmia induced. LV systolic function slightly improved on APRIL this morning. Currently not manifesting signs of heart failure but chest x-ray pending Relatively soft blood pressures after procedure this morning and medication administrations Plan: Continue anticoagulation with IV heparin, transition to oral Eliquis Continue metoprolol succinate at 25 mg twice per day as heart rate and blood pressure allows [place] heart failure therapies with Entresto low-dose diuretic, spironolactoneas blood pressure allows No further oral or IV diltiazem Discussed management of atrial flutter in detail with patient and chandana streeter if recurrence would likely warrant antiarrhythmic therapy. Okay to continue current Parkinson medications 06/11/2024 Hemodynamically stable, remains in sinus rhythm. Blood pressure slightly higher. With mild breathlessness suspect component of mild congestive heart failure as well as possible aspiration. 1. Paroxysmal atrial flutter with rapid response with successful conversion to sinus rhythm post cardioversion. Metoprolol succinate 25 mg twice per day. May transition IV heparin to Eliquis 2. Diffuse cardiomyopathy suspect tachycardia mediated. Entresto begun and will be increased to full tablet twice per day. Add diuretic with furosemide 20 mg p.o. daily and spironolactone 12.5 mg/day to optimize medical regimen. Maintain telemetry I spent a total of 40 minutes on the date of service in preparation, delivery, and documentation of the care provided to this patient, excluding any time spent in the performance of separately billed services. 06/11/24 13:29 Guevara Driver MD Admission and Anticipated Discharge Date Admission Date: June 09, 2024 Subjective Patient seen and examined, chart, medications, telemetry reviewed. Receiving nebulizer due to breathlessness this morning. No productive cough. No di zziness or lightheadedness. Has maintained sinus rhythm overnight. No chest pains or chest discomfort. Mild pedal edema present Review of Systems Review of Systems: All systems reviewed & are unremarkable except as noted in Subjective Physical Exam Constitutional: WD/WN, vitals as above average body habitus; no acute distress ENMT: external ear and nose normal, oropharynx normal Neck: trachea midline, no thyromegaly Respiratory: no labored breathing Auscultation: + diminished lung sounds; no crackles and no rales Cardiovascular: Rate/Rhythm: regular rate and regular rhythm Heart Sounds: + murmur (II/ systolic murmur) Vessels: no JVD Extremities: + edema (trace pretibial edema) Gastrointestinal (Abdomen): normal bowel sounds, soft, nontender, no hepatosplenomegaly Musculoskeletal: no cyanosis or clubbing, extremities motor strength 5/5 Skin: no rashes, warm and dry Neurologic: PERRL, EOMI, accommodation nl, no face palsy, no dysarthria Motor/Sensory: + tremor Results & Data Vital Signs (Past 12 Hours) Vital Signs Temp Pulse Pulse Resp BP Pulse Ox O2 Del Method 06/11/24 07:57 77 17 92 Room Air 06/11/24 07:53 36.8 C 74 16 137/88 93 Room Air 06/11/24 07:21 75 06/11/24 02:48 36.5 C 62 18 107/61 92 Nasal Cannula 06/10/24 22:44 36.3 C L 76 18 98/60 L 91 Room Air 06/10/24 21:55 68 Laboratory Results Laboratory Results - last 24 hr 06/10/24 06/10/24 06/10/24 08:27 10:17 18:24 WBC RBC Hgb Hct MCV MCH MCHC RDW Std Deviation RDW Coeff of Adam Plt Count MPV Heparin Anti-Xa, LM Wt 0.13 Heparin Anti-Xa, Unfract 0.16 L 0.23 L Sodium 137 Potassium 4.2 Chloride 105 Carbon Dioxide 23 Anion Gap 9 BUN 20 Creatinine 0.93 Est Cr Clr Drug Dosing 44.5 eGFR 62.13 BUN/Creatinine Ratio 21.5 H Glucose 98 Calcium 8.4 L Magnesium 2.0 Procalcitonin 0.05 06/11/24 06/11/24 01:24 06:54 WBC 8.06 RBC 4.59 Hgb 14.8 Hct 43.6 MCV 95.0 MCH 32.2 MCHC 33.9 RDW Std Deviation 46.6 H RDW Coeff of Adam 13.4 Plt Count 214 MPV 11.2 Heparin Anti-Xa, LM Wt Heparin Anti-Xa, Unfract 0.24 L 0.24 L Sodium 141 Potassium 3.9 Chloride 108 H Carbon Dioxide 25 Anion Gap 8 BUN 22 Creatinine 1.13 Est Cr Clr Drug Dosing 36.8 eGFR 49.18 BUN/Creatinine Ratio 19.5 Glucose 136 H Calcium 8.7 Magnesium Procalcitonin
[2024-06-11] MEDS ORDERED: ALBUT/IPRATROP 3MG/0.5MG NEB 3 ML VIAL NEB PRN (14:13)
[2024-06-11 15:23] LABS: ANTI-Xa, UFH(UnfractionatedHep 0.21 IU/ml (0.3-0.7)
[2024-06-11 20:15] LABS: Magnesium 2.2 mg/dl (1.7-2.4)
[2024-06-11] MEDS: APIXABAN 5 MG TABLET PO SCH (20:50)
[2024-06-11] MEDS: METOPROLOL SUCC 25MG EXT REL TAB PO STA (20:50)
[2024-06-11] MEDS: POTASSIUM CHLORIDE CRTAB 20 MEQ TABCR PO STA (20:51)
[2024-06-12 06:22] LABS: Basophils # (auto) 0.06 K/uL (0.00-0.20); Basophils % (auto) 0.7 %; Eosinophils # (auto) 0.33 K/uL (0.00-0.50); Hematocrit (blood only) 43.5 % (37.0-47.0); Hemoglobin 14.9 g/dl (12.0-16.0); Immature Granulocytes # (auto) 0.02 K/uL (0.01-0.20); Immature Granulocytes % (auto) 0.2 %; Lymphocytes # (auto) 2.07 K/uL (1.20-3.40); Mean Corpuscular Hemoglobin 32.5 pg (25.0-34.0); Mean Corpuscular Hgb Conc 34.3 g/dL (32.0-36.0); Monocytes # (auto) 0.67 K/uL (0.11-0.59); Monocytes % (auto) 8.1 %; Neutrophils # (auto) 5.13 K/uL (1.40-6.50); Platelet Count 232 K/uL (130-400); RDW Coefficient of Variation 13.5 % (11.5-14.5); RDW Standard Deviation 46.5 fL (36.4-46.3); Red Blood Count 4.58 M/uL (4.20-5.40); White Blood Count 8.28 K/ul (4.8-10.8)
[2024-06-12 06:53] LABS: Albumin Globulin Ratio 1.4 (0.9-2); Albumin Level 3.3 gm/dl (3.4-5.0); BUN Creatinine Ratio 16.3 (10-20); Bilirubin,Total 0.6 mg/dl (0.2-1.0); Calcium 8.6 mg/dl (8.6-10.3); Creatinine Clr Calc Pharmacy 44.2 ml/min; Globulin 2.3 gm/dl (2.5-4.0); Magnesium 2.1 mg/dl (1.7-2.4); Potassium 4.1 mmol/L (3.5-5.1); Total Protein 5.6 gm/dl (6.0-8.3)
[2024-06-12] MEDS: METOPROLOL SUCC 25MG EXT REL TAB PO SCH ×2 (09:12→20:39)
--- NOTE | 2024-06-12 10:30 | Cardiology Progress Note ---
Date of Service June 12, 2024 Assessment & Plan (1) Atrial flutter with rapid ventricular response: (2) Acute heart failure with reduced ejection fraction and diastolic dysfunction: Plan Patient admitted with SOB/palpitations. Diagnosed with atrial flutter RVR in the 150's. Duration unknown, possibly several weeks. Treated initially in ER with IV diltiazem and IV adenosine, failing to convert to NSR. Started on IV metoprolol and then transitioned to oral metoprolol HR's trending lower since admission. Currently in the 130's. Likely will need APRIL/CV later this admission in order to restore NSR. Chest xray reveals mild pulm edema/small pleural effusions. Treated with IV lasix in the ER. Patient reports frequent urination since admission. SOB improving over the last few hours Monitor I+O's. Monitor electrolytes and renal function Daily weight with standing scale. Echo reveals moderately reduced LVEF 35%. 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 Start GDMT as BP tolerates after beta elizabeth is titrated. 06/10/2024 1. Atrial flutter with rapid response, 2-1 conduction uncertain duration possibly extended period prior to hospital presentation. Underwent synchronized electrical cardioversion, APRIL guided this morning with successful return to sinus bradycardia. 2. Cardiomyopathy with reduced ejection fraction, moderate mitral intra cusp insufficiency possibly arrhythmia induced. LV systolic function slightly improved on APRIL this morning. Currently not manifesting signs of heart failure but chest x-ray pending Relatively soft blood pressures after procedure this morning and medication administrations Plan: Continue anticoagulation with IV heparin, transition to oral Eliquis Continue metoprolol succinate at 25 mg twice per day as heart rate and blood pressure allows [place] heart failure therapies with Entresto low-dose diuretic, spironolactoneas blood pressure allows No further oral or IV diltiazem Discussed management of atrial flutter in detail with patient and chandana streeter if recurrence would likely warrant antiarrhythmic therapy. Okay to continue current Parkinson medications 06/11/2024 Hemodynamically stable, remains in sinus rhythm. Blood pressure slightly higher. With mild breathlessness suspect component of mild congestive heart failure as well as possible aspiration. 1. Paroxysmal atrial flutter with rapid response with successful conversion to sinus rhythm post cardioversion. Metoprolol succinate 25 mg twice per day. May transition IV heparin to Eliquis 2. Diffuse cardiomyopathy suspect tachycardia mediated. Entresto begun and will be increased to full tablet /24 twice per day. Add diuretic with furosemide 20 mg p.o. daily and spironolactone 12.5 mg/day to optimize medical regimen. Maintain telemetry 06/12/2024 Patient appears clinically improved still with basilar crackles on chest exam. Brief run of atrial flutter early a.m. this morning 1. Paroxysmal atrial flutter with rapid ventricular response, 2-1 AV conduction on presentation. Status post APRIL guided cardioversion. Brief recurrence on telemetry asymptomatic. Will increase metoprolol succinate to 37.5 mg twice per day. If atrial flutter becomes more persistent may consider sotalol versus referral for flutter ablation 2. Cardiomyopathy reduced ejection fraction possibly tachycardia mediated guideline optimal medical therapies begun with good tolerance 3. Possible aspiration on therapies. Responding to diuretics as well 4. Parkinsonism I spent a total of 40 minutes on the date of service in preparation, delivery, and documentation of the care provided to this patient, excluding any time spent in the performance of separately billed services. 06/12/24 13:29 Guevara Driver MD Admission and Anticipated Discharge Date Admission Date: June 09, 2024 Subjective Patient was seen and examined, chart, medications, telemetry reviewed. Feeling improved this morning. Denies chest pains tachypalpitations dizziness or lightheadedness. Telemetry did demonstrate brief run of atrial flutter earlier this morning asymptomatic. No breathing issues no productive cough Review of Systems Review of Systems: All systems reviewed & are unremarkable except as noted in Subjective Physical Exam Constitutional: WD/WN, vitals as above average body habitus; no acute distress ENMT: external ear and nose normal, oropharynx normal Neck: trachea midline, no thyromegaly Respiratory: no labored breathing Auscultation: + diminished lung sounds and + crackles; no rales Cardiovascular: Rate/Rhythm: regular rate and regular rhythm Heart Sounds: + murmur (II/ systolic murmur) Vessels: no JVD Extremities: + edema (trace pretibial edema) Gastrointestinal (Abdomen): normal bowel sounds, soft, nontender, no hepatosplenomegaly Musculoskeletal: no cyanosis or clubbing, extremities motor strength 5/5 Skin: no rashes, warm and dry Neurologic: PERRL, EOMI, accommodation nl, no face palsy, no dysarthria Motor/Sensory: + tremor Results & Data Vital Signs (Past 12 Hours) Vital Signs Temp Pulse Resp BP Pulse Ox O2 Del Method O2 Flow Rate 06/12/24 09:07 Room Air 06/12/24 09:02 72 129/78 92 Room Air 06/12/24 07:26 37.1 C 77 18 94 Nasal Cannula 2.0 06/12/24 03:29 36.8 C 65 16 129/81 93 Nasal Cannula 0.5 06/11/24 22:55 37.1 C 67 16 146/89 H 92 Nasal Cannula 0.5 Laboratory Results Laboratory Results - last 24 hr 06/11/24 06/11/24 06/12/24 06:54 14:41 05:37 WBC 8.28 RBC 4.58 Hgb 14.9 Hct 43.5 MCV 95.0 MCH 32.5 MCHC 34.3 RDW Std Deviation 46.5 H RDW Coeff of Adam 13.5 Plt Count 232 MPV 11.0 Immature Gran % (Auto) 0.2 Neut % (Auto) 62.0 Lymph % (Auto) 25.0 [place] % (Auto) 8.1 Eos % (Auto) 4.0 Baso % (Auto) 0.7 Neut # (Auto) 5.13 Lymph # (Auto) 2.07 [place] # (Auto) 0.67 H Eos # (Auto) 0.33 Baso # (Auto) 0.06 Immature Gran # (Auto) 0.02 Heparin Anti-Xa, Unfract 0.21 L Sodium 140 Potassium 4.1 Chloride 109 H Carbon Dioxide 27 Anion Gap 4 BUN 15 Creatinine 0.92 Est Cr Clr Drug Dosing 44.2 eGFR 62.94 BUN/Creatinine Ratio 16.3 Glucose 90 Calcium 8.6 Magnesium 2.2 2.1 Total Bilirubin 0.6 AST 16 ALT 6 L Alkaline Phosphatase 49 Total Protein 5.6 L Albumin 3.3 L Globulin 2.3 L Albumin/Globulin Ratio 1.4
--- NOTE | 2024-06-12 10:54 | Hospitalist Progress Note ---
<Statement entered by Guilherme Jacobs, DO - 06/12/24 16:22> I have seen and examined the patient and have discussed the case with the advance practice provider. I have reviewed the advanced practitioner's documentation, and I agree with, and take responsibility for that plan of care. Patient feels as though she is improving. Lungs decreased. Continue to titrate oxygen as able Encourage activity Plan of care as outlined below I spent a total of 14 minutes coordinating, documenting, and providing care for this patient excluding time spent by another provider/QHP. Date of Service June 12, 2024 Assessment & Plan (1) Acute heart failure with reduced ejection fraction and diastolic dysfunction: (2) Atrial flutter with rapid ventricular response: (3) Parkinson disease: Plan This is an 78yo F with a PMH of Parkinson's disease, IPMN who presents with weakness and fatigue worsening over the past few weeks and was found to have a flutter with RVR. 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 Le of [facility] -Prescribed a new regimen of carbidopa-levodopa to be started on 06/09 After discussion via [place] text, recommending to continue current regimen for now Follow-up with neurology outpatient after DC 06/12: Ambulatory pulse ox in a.m., plan for ADC in the next 24-48 hours once cleared by cardiology. Entresto/Eliquis pricing completed, both medications will be $47 monthly Full code DVT prophylaxis: Heparin drip I spent a total of 40 minutes coordinating, documenting, and providing care for this patient excluding time spent in the performance of separately billed services. This included personally reviewing all current laboratories and imaging studies, medication reconciliation, outpatient chart review, and discussion with specialists. Admission and Anticipated Discharge Date Admission Date: June 09, 2024 Subjective Patient seen and examined. No apparent distress. Reports an uneventful night. Per nursing, had short episode of atrial flutter overnight. Denies any nausea/vomiting/abdominal pain Review of Systems Review of Systems: All systems reviewed & are unremarkable except as noted in HPI & below Physical Exam Constitutional: WD/WN, vitals as above Eyes: PERRL, conjunctivae normal, anicteric sclerae ENMT: external ear and nose normal, oropharynx normal Neck: trachea midline, no thyromegaly Respiratory: normal respiratory effort, lungs clear to auscultation Cardiovascular: RRR, no murmur, no edema Gastrointestinal (Abdomen): normal bowel sounds, soft, nontender, no hepatosplenomegaly Musculoskeletal: no cyanosis or clubbing, extremities motor strength 5/5 Skin: no rashes, warm and dry Neurologic: PERRL, EOMI, accommodation nl, no face palsy, no dysarthria Psychiatric: A+Ox3, euthymic affect Lymphatic: no cervical or axillary lymphadenopathy Results & Data Results & Data Vital Signs (Past 12 Hours) Vital Signs Temp Pulse Resp BP Pulse Ox O2 Del Method O2 Flow Rate 06/12/24 09:07 Room Air 06/12/24 09:02 72 129/78 92 Room Air 06/12/24 07:26 37.1 C 77 18 94 Nasal Cannula 2.0 06/12/24 03:29 36.8 C 65 16 129/81 93 Nasal Cannula 0.5 06/11/24 22:55 37.1 C 67 16 146/89 H 92 Nasal Cannula 0.5 Diagnostic Findings Laboratory Results WBC 8.28 K/ul (4.8-10.8) 06/12/24 05:37 RBC 4.58 M/uL (4.20-5.40) 06/12/24 05:37 Hgb 14.9 g/dl (12.0-16.0) 06/12/24 05:37 Hct 43.5 % (37.0-47.0) 06/12/24 05:37 MCV 95.0 fL (80.0-100.0) 06/12/24 05:37 MCH 32.5 pg (25.0-34.0) 06/12/24 05:37 MCHC 34.3 g/dL (32.0-36.0) 06/12/24 05:37 RDW Std Deviation 46.5 fL (36.4-46.3) H 06/12/24 05:37 RDW Coeff of Adam 13.5 % (11.5-14.5) 06/12/24 05:37 Plt Count 232 K/uL (130-400) 06/12/24 05:37 MPV 11.0 fL (9.4-12.4) 06/12/24 05:37 Immature Gran % (Auto) 0.2 % 06/12/24 05:37 Neut % (Auto) 62.0 % 06/12/24 05:37 Lymph % (Auto) 25.0 % 06/12/24 05:37 Wilkinson % (Auto) 8.1 % 06/12/24 05:37 Eos % (Auto) 4.0 % 06/12/24 05:37 Baso % (Auto) 0.7 % 06/12/24 05:37 Neut # (Auto) 5.13 K/uL (1.40-6.50) 06/12/24 05:37 Lymph # (Auto) 2.07 K/uL (1.20-3.40) 06/12/24 05:37 Wilkinson # (Auto) 0.67 K/uL (0.11-0.59) H 06/12/24 05:37 Eos # (Auto) 0.33 K/uL (0.00-0.50) 06/12/24 05:37 Baso # (Auto) 0.06 K/uL (0.00-0.20) 06/12/24 05:37 Immature Gran # (Auto) 0.02 K/uL (0.01-0.20) 06/12/24 05:37 PT 10.9 Seconds (9.0-12.0) 06/09/24 08:40 INR 1.0 (0.9-1.1) 06/09/24 08:40 APTT 26 Seconds (21-31) 06/09/24 08:40 PTT Ratio 1.0 06/09/24 08:40 Heparin Anti-Xa, LM Wt 0.13 IU/ML (< 0.10) 06/10/24 08:27 Heparin Anti-Xa, Unfract 0.21 IU/ml (0.3-0.7) L 06/11/24 14:41 Sodium 140 mmol/L (136-145) 06/12/24 05:37 Potassium 4.1 mmol/L (3.5-5.1) 06/12/24 05:37 Chloride 109 mmol/L (98-107) H 06/12/24 05:37 Carbon Dioxide 27 mmol/L (21-32) 06/12/24 05:37 Anion Gap 4 (3-11) 06/12/24 05:37 BUN 15 mg/dl (6-23) 06/12/24 05:37 Creatinine 0.92 mg/dl (0.6-1.2) 06/12/24 05:37 Est Cr Clr Drug Dosing 44.2 ml/min 06/12/24 05:37 eGFR 62.94 06/12/24 05:37 BUN/Creatinine Ratio 16.3 (10-20) 06/12/24 05:37 Glucose 90 mg/dl (70-99(Fasting)) 06/12/24 05:37 Calcium 8.6 mg/dl (8.6-10.3) 06/12/24 05:37 Magnesium 2.1 mg/dl (1.7-2.4) 06/12/24 05:37 Total Bilirubin 0.6 mg/dl (0.2-1.0) 06/12/24 05:37 AST 16 U/L (13-39) 06/12/24 05:37 ALT 6 U/L (7-52) L 06/12/24 05:37 Alkaline Phosphatase 49 U/L (34-104) 06/12/24 05:37 Troponin I High Sens 34.3 pg/ml (0-14) H 06/09/24 10:55 B-Natriuretic Peptide 858 pg/ml (0-100) H 06/09/24 08:40 Total Protein 5.6 gm/dl (6.0-8.3) L 06/12/24 05:37 Albumin 3.3 gm/dl (3.4-5.0) L 06/12/24 05:37 Globulin 2.3 gm/dl (2.5-4.0) L 06/12/24 05:37 Albumin/Globulin Ratio 1.4 (0.9-2) 06/12/24 05:37 Procalcitonin 0.05 ng/ml (0-0.5) 06/10/24 10:17 TSH 4.182 uIu/ml (0.300-4.500) 06/09/24 08:40 Urine Color Yellow 06/09/24 12:00 Urine Appearance Clear (Clear) 06/09/24 12:00 Urine pH 5.5 (4.5-7.5) 06/09/24 12:00 Ur Specific [place] 1.012 (1.000-1.030) 06/09/24 12:00 Urine Protein Negative (Negative) 06/09/24 12:00 Urine Glucose (UA) Negative (Negative) 06/09/24 12:00 Urine Ketones Negative (Negative) 06/09/24 12:00 Urine Blood Negative (Negative) 06/09/24 12:00 Urine Nitrite Negative (Negative) 06/09/24 12:00 Urine Bilirubin Negative (Negative) 06/09/24 12:00 Urine Urobilinogen Negative (Negative) 06/09/24 12:00 Ur Leukocyte Esterase Negative (Negative) 06/09/24 12:00 Adenovirus (PCR) Not Detected (NotDetected) 06/09/24 11:58 B. pertussis DNA (PCR) Not Detected (NotDetected) 06/09/24 11:58 B.parapertussis DNA PCR Not Detected (NotDetected) 06/09/24 11:58 C. pneumoniae DNA (PCR) Not Detected (NotDetected) 06/09/24 11:58 Coronavirus OC43 (PCR) Not Detected (NotDetected) 06/09/24 11:58 Coronavirus HKU1 (PCR) Not Detected (NotDetected) 06/09/24 11:58 Coronavirus 229E (PCR) Not Detected (NotDetected) 06/09/24 11:58 SARS-CoV-2 (PCR) Not Detected (NotDetected) 06/09/24 11:58 Coronavirus NL63 (PCR) Not Detected (NotDetected) 06/09/24 11:58 Human Metapneumovir PCR Not Detected (NotDetected) 06/09/24 11:58 Influenza Type A (PCR) Not Detected (NotDetected) 06/09/24 11:58 Influenza Type B (PCR) Not Detected (NotDetected) 06/09/24 11:58 M. pneumoniae (PCR) Not Detected (NotDetected) 06/09/24 11:58 Parainfluenza 1 (PCR) Not Detected (NotDetected) 06/09/24 11:58 Parainfluenza 2 (PCR) Not Detected (NotDetected) 06/09/24 11:58 Parainfluenza 3 (PCR) Not Detected (NotDetected) 06/09/24 11:58 Parainfluenza 4 (PCR) Not Detected (NotDetected) 06/09/24 11:58 RSV (PCR) Not Detected (NotDetected) 06/09/24 11:58 Entero/Rhino (PCR) Not Detected (NotDetected) 06/09/24 11:[address] 06/10/24 00:31 EXAM: CT head/brain wo con CLINICAL HISTORY: smith, heparin TECHNIQUE: Multiple axial images are obtained from the skull base to the vertex without contrast. CT scan was performed according to ALARA (as low as reasonable achievable). COMPARISON: None. FINDINGS: There is cerebral atrophy. No evidence of space occupying lesion, hemorrhage, edema, mass effect, midline shift, extra axial collection, or hydrocephalus is noted. Basal cisterns are symmetric and normal in size and configuration. There are scattered periventricular hypodensities as can be seen with chronic microvascular ischemic changes. The carr-white matter differentiation is preserved. Visualized paranasal sinuses and mastoid air cells are well aerated. Orbital contents are within normal limits. Bony structures are intact. IMPRESSION: 1. No evidence of acute intracranial abnormality is demonstrated. 2. Chronic microvascular ischemic changes. 3. Cerebral atrophy. Electronically signed by Rios Lau 06-10-2024 01:47 AM Chest X-Ray 06/10/24 08:35 XR chest 1V portable CLINICAL HISTORY: hypoxia COMPARISON STUDY: Chest radiograph June 09, 2024. FINDINGS: There is no pneumothorax. A trace left pleural effusion is present. Bibasilar opacities have increased. Cardiomegaly is again noted with extensive mitral annular calcification. No radiographic evidence for pulmonary edema. IMPRESSION: 1. Increase in bibasilar airspace opacities suggestive of pneumonia or aspiration pneumonitis. Radiographic follow-up to ensure resolution is recommended. 2. Cardiomegaly. ACT 112: Negative or not required by law. Electronically signed by: Alfredito Lyon M.D. 06/10/2024 9:15 AM
[2024-06-12] MEDS: METOPROLOL SUCC 25MG EXT REL TAB PO ONE (12:27)
[2024-06-12 23:38] VITALS: TEMP 98.1
[2024-06-13 07:10] LABS: Hemoglobin 15.3 g/dl (12.0-16.0); Mean Corpuscular Hemoglobin 32.1 pg (25.0-34.0); Mean Corpuscular Volume 94.5 fL (80.0-100.0); Mean Platelet Volume 10.4 fL (9.4-12.4); Platelet Count 251 K/uL (130-400); RDW Coefficient of Variation 13.4 % (11.5-14.5); RDW Standard Deviation 46.1 fL (36.4-46.3); Red Blood Count 4.76 M/uL (4.20-5.40); White Blood Count 8.53 K/ul (4.8-10.8)
[2024-06-13 07:35] LABS: Albumin Globulin Ratio 1.4 (0.9-2); Albumin Level 3.4 gm/dl (3.4-5.0); BUN Creatinine Ratio 15.6 (10-20); Bilirubin,Total 0.6 mg/dl (0.2-1.0); Calcium 8.8 mg/dl (8.6-10.3); Globulin 2.5 gm/dl (2.5-4.0); Potassium 3.9 mmol/L (3.5-5.1); Total Protein 5.9 gm/dl (6.0-8.3)
[2024-06-13 08:03] VITALS: RESP 18; O2SAT 92
--- NOTE | 2024-06-13 10:12 | Cardiology Progress Note ---
Date of Service June 13, 2024 Assessment & Plan (1) Atrial flutter with rapid ventricular response: (2) Acute heart failure with reduced ejection fraction and diastolic dysfunction: Plan Patient admitted with SOB/palpitations. Diagnosed with atrial flutter RVR in the 150's. Duration unknown, possibly several weeks. Treated initially in ER with IV diltiazem and IV adenosine, failing to convert to NSR. Started on IV metoprolol and then transitioned to oral metoprolol HR's trending lower since admission. Currently in the 130's. Likely will need APRIL/CV later this admission in order to restore NSR. Chest xray reveals mild pulm edema/small pleural effusions. Treated with IV lasix in the ER. Patient reports frequent urination since admission. SOB improving over the last few hours Monitor I+O's. Monitor electrolytes and renal function Daily weight with standing scale. Echo reveals moderately reduced LVEF 35%. 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 Start GDMT as BP tolerates after beta elizabeth is titrated. 06/10/2024 1. Atrial flutter with rapid response, 2-1 conduction uncertain duration possibly extended period prior to hospital presentation. Underwent synchronized electrical cardioversion, APRIL guided this morning with successful return to sinus bradycardia. 2. Cardiomyopathy with reduced ejection fraction, moderate mitral intra cusp insufficiency possibly arrhythmia induced. LV systolic function slightly improv ed on APRIL this morning. Currently not manifesting signs of heart failure but chest x-ray pending Relatively soft blood pressures after procedure this morning and medication administrations Plan: Continue anticoagulation with IV heparin, transition to oral Eliquis Continue metoprolol succinate at 25 mg twice per day as heart rate and blood pressure allows [place] heart failure therapies with Entresto low-dose diuretic, spironolactoneas blood pressure allows No further oral or IV diltiazem Discussed management of atrial flutter in detail with patient and geo landry if recurrence would likely warrant antiarrhythmic therapy. Okay to continue current Parkinson medications 06/11/2024 Hemodynamically stable, remains in sinus rhythm. Blood pressure slightly higher. With mild breathlessness suspect component of mild congestive heart failure as well as possible aspiration. 1. Paroxysmal atrial flutter with rapid response with successful conversion to sinus rhythm post cardioversion. Metoprolol succinate 25 mg twice per day. May transition IV heparin to Eliquis 2. Diffuse cardiomyopathy suspect tachycardia mediated. Entresto begun and will be increased to full tablet 26/24 twice per day. Add diuretic with furosemide 20 mg p.o. daily and spironolactone 12.5 mg/day to optimize medical regimen. Maintain telemetry 06/12/2024 Patient appears clinically improved still with basilar crackles on chest exam. Brief run of atrial flutter early a.m. this morning 1. Paroxysmal atrial flutter with rapid ventricular response, 2-1 AV conduction on presentation. Status post APRIL guided cardioversion. Brief recurrence on telemetry asymptomatic. Will increase metoprolol succinate to 37.5 mg twice per day. If atrial flutter becomes more persistent may consider sotalol versus referral for flutter ablation 2. Cardiomyopathy reduced ejection fraction possibly tachycardia mediated guideline optimal medical therapies begun with good tolerance 3. Possible aspiration on therapies. Responding to diuretics as well 4. Parkinsonism 06/13/24: Respiratory status improved. Still with faint b/l crackles and mild edema. Patient remains in NSR overnight. No recurrent atrial flutter. 1. PAF -S/P APRIL CV. Continue metoprolol 37.5 mg BID. Continue Eliquis 5 mg BID 2. HFrEF - Likely tachyinduced. GDMT initiated. Increase furosemide to 40 mg daily. Continue Entresto, metoprolol succinate, spironolactone. Consider future Jardiance. Consider outpatient nuclear stress test and then repeat echo in several months. 3. Possible aspiration pneumonia. Continue antibiotics per hospitalist. Would recommend 2 step prior to discharge. If patient is staying one additional night, consider nocturnal oximetry as well. otherwise, complete as outpatient. From a cardiac perspective, stable for possible discharge today. Will arrange cardiology hospital f/u in 2 weeks. Case discussed with Dr. Lerner. I spent a total of 30 minutes on the date of service in preparation, delivery, and documentation of the care provided to this patient, excluding any time spent in the performance of separately billed services. Jennifer Roberts PA-C Department of Cardiology, [facility] This chart was completed in part utilizing Speech Voice Recognition Software. Grammatical errors, random word insertions, pronoun errors, and incomplete sen tences are an occasional consequence of this system due to software limitations, ambient noise, and hardware issues. Any formal questions or concerns about the content, text, or information contained within the body of this dictation should be directly addressed to the provider for clarification. Admission and Anticipated Discharge Date Admission Date: June 09, 2024 Supervising Physician Co-Signing Physician Notes Attending attestation: Case reviewed with the advanced practitioner. I have personally performed a history and physical examination on the patient. I have reviewed the advanced practitioner's documentation on the date of service referenced in note, and I agree with, and take responsibility for the plan of care. I spent a total of 20 minutes coordinating, documenting, and providing care for this patient excluding time spent in the performance of separately billed services or time spent by another provider. Statnon Lerner, DO Subjective Patient resting in chair. Family at bedside. Hoping for discharge today. Reports great improvement in her dyspnea/SOB since admission. Lingering cough noted. Mild edema remains persistent. Good urine outputs since yesterday. Orthopnea also improved. No chest pain. No dizziness or lightheadedness. No palpitations. Currently off oxygen. Daughter concerned that oxygen drops at night. Review of Systems Review of Systems: All systems reviewed & are unremarkable except as noted in HPI & below Physical Exam Constitutional: WD/WN, vitals as above average body habitus; no acute distress Neck: trachea midline, no thyromegaly Respiratory: no labored breathing Auscultation: + diminished lung sounds and + crackles; no rales Cardiovascular: Rate/Rhythm: regular rate and regular rhythm Heart Sounds: + murmur (II/ systolic murmur) Vessels: no JVD Extremities: + edema (trace ankle and pretibial edema) Gastrointestinal (Abdomen): normal bowel sounds, soft, nontender, no hepatosplenomegaly Skin: no rashes, warm and dry Neurologic: PERRL, EOMI, accommodation nl, no face palsy, no dysarthria Results & Data Vital Signs (Past 12 Hours) Vital Signs Temp Pulse Pulse Resp BP Pulse Ox O2 Del Method 06/13/24 08:00 36.7 C 69 18 123/71 92 Room Air 06/13/24 03:18 36.7 C 66 19 145/92 H 95 Nasal Cannula 06/12/24 23:30 65 06/12/24 22:54 36.7 C 63 16 133/80 96 Nasal Cannula O2 Flow Rate 06/13/24 08:00 06/13/24 03:18 2 06/12/24 23:30 06/12/24 22:54 2 Laboratory Results Cardiac Enzymes 06/13/24 Range/Units 06:48 AST 15 (13-39) U/L CBC 06/13/24 Range/Units 06:48 WBC 8.53 (4.8-10.8) K/ul RBC 4.76 (4.20-5.40) M/uL Hgb 15.3 (12.0-16.0) g/dl Hct 45.0 (37.0-47.0) % Plt Count 251 (130-400) K/uL Comprehensive Metabolic Panel 06/13/24 Range/Units 06:48 Sodium 139 (136-145) mmol/L Potassium 3.9 (3.5-5.1) mmol/L Chloride 105 (98-107) mmol/L Carbon Dioxide 27 (21-32) mmol/L BUN 14 (6-23) mg/dl Creatinine 0.90 (0.6-1.2) mg/dl Glucose 101 H (70-99(Fasting)) mg/dl Calcium 8.8 (8.6-10.3) mg/dl AST 15 (13-39) U/L ALT 3 L (7-52) U/L Alkaline Phosphatase 50 (34-104) U/L Total Protein 5.9 L (6.0-8.3) gm/dl Albumin 3.4 (3.4-5.0) gm/dl Intake and Output 06/12/24 06/13/24 06/13/24 22:59 06:59 14:59 Intake Total 100 / 1140 700 / 1140 Output Total 500 / 1800 900 / 1800 Balance -400 / -660 -200 / -660 Intake: IV 100 / 400 200 / 400 Ampicillin/Sulbactam Sod 3,000 100 / 400 200 / 400 mg In 100 ml @ 200 mls/hr IV Q6H [facility] Rx#:[id number] Oral 500 / 740 Output: Urine 500 / 1800 900 / 1800 Other: Weight 70.9 kg Weight Measurement Method Built in [facility] Diagnostic Findings Telemetry reviewed: NSR. No recurrent atrial fib/flutter. Medications Administered Current Inpatient Medications Acetaminophen (Acetaminophen 325 Mg Tab) 650 mg PO Q4H PRN PRN Reason: Pain or Fever Stop: 07/09/24 11:01 Albuterol (Albut/Ipratrop 3mg/0.5mg Neb 3 Ml Vial) 3 ml NEB QIDR PRN; Protocol PRN Reason: Wheezing Stop: 07/10/24 10:59 Apixaban (Apixaban 5 Mg Tablet) 5 mg PO BID DANNY Stop: 07/11/24 20:59 Last Admin: 06/13/24 08:24 Dose: 5 mg Artificial Tears (Artificial Tears) 1 drops OPB QID PRN PRN Reason: Dryness Stop: 07/11/24 09:36 Ascorbic Acid (Ascorbic Acid 500 Mg Tab) 500 mg PO DAILY DANNY Stop: 07/10/24 08:59 Last Admin: 06/13/24 08:26 Dose: 500 mg Calcium/Vitamin D (Calcium 600mg + Vit D 400 Iu Tab) 1 tab PO DAILY DANNY Stop: 07/10/24 08:59 Last Admin: 06/13/24 08:24 Dose: 1 tab Carbidopa/Levodopa (Carbidopa/Levodopa 50/200mg Ext Rel Tab) 1 tab PO TID@0630,1130,1630 DANNY Stop: 07/09/24 16:29 Last Admin: 06/13/24 05:48 Dose: 1 tab Carbidopa/Levodopa (Carbidopa/Levodopa 50/200mg Ext Rel Tab) 0.5 tab PO DAILY@2130 [facility] Stop: 07/09/24 21:29 Last Admin: 06/12/24 20:39 Dose: 0.5 tab Fish Oil ([place]-3 (Purified Fish Oil) 1 Gm Cap) 1 cap PO DAILY DANNY Stop: 07/10/24 08:59 Furosemide (Furosemide 20 Mg Tab) 20 mg PO QAM DANNY Stop: 07/11/24 08:59 Last Admin: 06/13/24 08:24 Dose: 20 mg Ampicillin Sodium/Sulbactam Sodium (Unasyn) 3,000 mg in 100 mls @ 200 mls/hr IV Q6H DANNY Stop: 06/15/24 10:59 Last Infusion: 06/13/24 06:49 Dose: Infused Metoprolol Succinate (Metoprolol Succ 25mg Ext Rel Tab) 37.5 mg PO BID DANNY Stop: 07/12/24 20:59 Last Admin: 06/13/24 08:24 Dose: 37.5 mg Multivitamins (Multivitamin Tab) 1 tab PO DAILY DANNY Stop: 07/10/24 08:59 Last Admin: 06/13/24 08:24 Dose: 1 tab Ondansetron HCl (Ondansetron Inj 2 Mg/Ml 2 Ml Vial) 4 mg IV Q6H PRN PRN Reason: Nausea Stop: 07/09/24 11:01 Last Admin: 06/10/24 00:15 Dose: 4 mg Polyethylene Glycol (Polyethylene (Miralax) 17 Gm Pack) 17 gm PO DAILY PRN PRN Reason: Constipation Stop: 07/09/24 11:01 Sacubitril/Valsartan (Valsartan/Sacubitril 26/24mg Tab) 1 tab PO BID DANNY Stop: 07/11/24 08:59 Last Admin: 06/13/24 08:24 Dose: 1 tab Sodium Chloride (Sodium Chloride 0.65% Na Soln 45 Ml ([place])) 2 sprays NA Q2H PRN PRN Reason: dry nose Stop: 07/11/24 09:36 Spironolactone (Spironolactone 12.5 Mg Tab) 12.5 mg PO DAILY DANNY Stop: 07/11/24 08:59 Last Admin: 06/13/24 08:24 Dose: 12.5 mg Vitamin B Complex (Vitamin B Complex Tab) 1 tab PO DAILY DANNY Stop: 07/10/24 08:59 Last Admin: 06/13/24 08:24 Dose: 1 tab
[2024-06-13] MEDS: FUROSEMIDE 20 MG TAB PO ONE (11:28)
--- NOTE | 2024-06-13 12:15 | Discharge Summary ---
<Statement entered by Guilherme Jacobs, DO - 06/13/24 14:13> I have seen and examined the patient and have discussed the case with the advance practice provider. I have reviewed the advanced practitioner's documentation, and I agree with, and take responsibility for that plan of care. Patient reports feeling significantly improved. Sitting in chair in no acute respiratory distress. Did report a little bit more swelling in lower extremities Lungs decreased, few crackles at the bases Discussed with cardiology, increase Lasix dose for few days then reevaluate dose with cardiology/PCP follow-up I spent a total of 17 minutes coordinating, documenting, and providing care for this patient excluding time spent by another provider/QHP. Discharge Summary Date of Service June 13, 2024 This is an 78yo F with a PMH of Parkinson's disease, IPMN who presents with weakness and fatigue worsening over the past few weeks. Has not felt well since Thanksgiving time but was attributing her change of gait, increased fatigue and "lead feet" to worsening Parkinson's. Follows with Dr. Le of [facility] neurolog y. Earlier this week, he recommended adjusting her carbidopa levodopa dose to add immediate release 4 times daily in addition to slow release. She has not yet transition to this dose. Over the past week, she has noted more fatigue as well as inability to take a deep breath. Also noting rapid heart rate at night the past few nights when she wakes up. Noted her heart rate to be in the 140s to 150s overnight and was advised through MyChart discussion to come to ED for further evaluation. Chest X-Ray 06/09/24 08:30 XR chest 1V portable CLINICAL HISTORY: Dysrhythmia COMPARISON STUDY: None FINDINGS: There is mild cardiomegaly without pulmonary vascular congestion. There is mild stranding opacity at the lung bases. No other consolidation or pleural effusion. No pneumothorax. IMPRESSION: Atelectasis versus early pneumonia in the lung bases. On arrival to the ED, patient was initially found to be in a flutter with RVR. Initial treatment with IV diltiazem and adenosine failed in the ER, patient had an echo that showed an EF of 35-40% with moderate to severe MR, moderate TR, cardiomyopathy noted that was likely secondary to tachycardia. Patient underwent a successful APRIL guided cardioversion on 06/10/2024. Entresto/Aldactone/Lasix was then added by cardiology on 06/11/2024. Heparin was then transitioned to oral Eliquis on 06/12/2024. Metoprolol was increased to twice a day to help with rate control. Cardiology continue to follow throughout the patient's hospitalization. The patient was noted to be hypoxic on room air. Was placed on 2 L of oxygen was improvement. Chest x-ray at that time showed increased bibasilar airspace suggestive of pneumonia/aspiration pneumonitis likely secondary to APRIL. An aspiration. IV Unasyn was started on 06/10. The patient will complete 7-day course of oral antibiotics for aspiration pneumonia. The patient had an ambulatory pulse ox prior to discharge and it was determined that she does not need any oxygen. Patient will need routine follow-up with neurology for her history of Parkinson's disease. She was directed to continue her home dose of Parkinson medications prior to arrival to the hospital. The patient's labs/vitals are stable. She is stable for discharge home with home care today. She will need to follow with her PCP within 1 week of discharge. She will need to follow cardiology within 2 weeks of discharge. Patient will also need a nocturnal sleep study outpatient after discharge Principal Dx & Hospital Course #1 = Principal Diagnosis (1) Acute heart failure with reduced ejection fraction and diastolic dysfunction: (2) Atrial flutter with rapid ventricular response: (3) Parkinson disease: Plan This is an 78yo F with a PMH of Parkinson's disease, IPMN who presents with weakness and fatigue worsening over the past few weeks and was found to have a flutter with RVR. 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 Le of [facility] -Prescribed a new regimen of carbidopa-levodopa to be started on 06/09 After discussion via [place] text, recommending to continue current regimen for now Follow-up with neurology outpatient after DC 06/12: Ambulatory pulse ox in a.m., plan for ADC in the next 24-48 hours once cleared by cardiology. Entresto/Eliquis pricing completed, both medications will be $47 monthly Full code DVT prophylaxis: Heparin drip I spent a total of 40 minutes coordinating, documenting, and providing care for this patient excluding time spent in the performance of separately billed services. This included personally reviewing all current laboratories and imaging studies, medication reconciliation, outpatient chart review, and discussion with specialists. Notes For Next Care Provider Patient will need follow-up sleep study outpatient. Medication Changes From Visit Entresto/Aldactone/Lasix added Eliquis also added on discharge and metoprolol was increased to twice daily Augmentin on DC to complete a week of treatment for aspiration pneumonia Admission HPI Per Admitting Provider This is an 78yo F with a PMH of Parkinson's disease, IPMN who presents with weakness and fatigue worsening over the past few weeks. Has not felt well since Thanksgiving time but was attributing her change of gait, increased fatigue and "lead feet" to worsening Parkinson's. Follows with Dr. Le of [facility] neurology. Earlier this week, he recommended adjusting her carbidopa levodopa dose to add immediate release 4 times daily in addition to slow release. She has not yet transition to this dose. Over the past week, she has noted more fatigue as well as inability to take a deep breath. Also noting rapid heart rate at night the past few nights when she wakes up. Noted her heart rate to be in the 140s to 150s overnight and was advised through MyChart discussion to come to ED for further evaluation. Currently patient feels fatigued and lightheaded when she sits up. Still experiencing some palpitation but denies any chest pain or shortness of breath at rest. Denies any change of increased swelling to lower extremities. States she has some chronic swelling in right lower extremity due to knee injury. No fever, chills, congestion. Does have a sore throat and has not been as hungry as usual. No wheezing, nausea, vomiting, abdominal pain, dysuria, diarrhea or constipation. Denies any known history of arrhythmia, heart failure or CAD. Admission Exam Per Admitting Provider General Appearance: WD/WN, vitals as above, NAD, sitting up in bed, pleasant, conversing easily Head: normocephalic, atraumatic Eyes: normal inspection, PERRL, conjunctivae normal, anicteric sclerae ENT: external ear and nose normal, oropharynx normal Neck: normal visual inspection, trachea midline, no thyromegaly Respiratory: increased respiratory effort, diminished lung sounds at bases, no rales, wheeze or rhonchi. No accessory muscle use Cardiovascular: irregular rate and rhuthm, normal peripheral pulses, trace BLE edema, R>L Chest: normal inspection of chest Abdomen/GI: normal bowel sounds, soft, nontender, no hepatosplenomegaly Extremities/Musculoskeletal: no cyanosis or clubbing, extremities motor strength 5/5 Neurologic: PERRL, EOMI, accommodation nl, no face palsy, no dysarthria, CN's II-XI intact bilaterally and moves all extremities Psychiatric: A+Ox3, euthymic affect Skin: no rashes, normal color, warm/dry Discharge Exam Constitutional WD/WN, vitals as above Eyes PERRL, conjunctivae normal, anicteric sclerae ENMT external ear and nose normal, oropharynx normal Neck trachea midline, no thyromegaly Respiratory normal respiratory effort, lungs clear to auscultation Cardiovascular RRR, no murmur, no edema Gastrointestinal (Abdomen) normal bowel sounds, soft, nontender, no hepatosplenomegaly Musculoskeletal no cyanosis or clubbing, extremities motor strength 5/5 Skin no rashes, warm and dry Neurologic PERRL, EOMI, accommodation nl, no face palsy, no dysarthria Psychiatric A+Ox3, euthymic affect Lymphatic no cervical or axillary lymphadenopathy Updated Medication List Medication Instructions Recorded Confirmed Type ascorbic acid (vitamin C) 500 mg 500 mg PO DAILY 06/09/24 06/09/24 History tablet (Vitamin C) calcium 600 mg (as 1 tab PO DAILY 06/09/24 06/09/24 History carbonate)-vitamin D3 20 mcg (800 unit) tablet carbidopa ER 50 mg-levodopa 200 mg 2 tab PO QID 06/09/24 06/09/24 History tablet,extended release multivitamin 1 tab PO DAILY 06/09/24 06/09/24 History omega-3 fatty acids 1,000 mg PO DAILY 06/09/24 06/09/24 History vitamin B complex 1 cap PO DAILY 06/09/24 06/09/24 History apixaban 5 mg tablet 5 mg PO BID #60 tabs 06/10/24 Rx sacubitril 24 mg-valsartan 26 mg 1 tab PO BID #60 tabs 06/12/24 Rx tablet (Entresto) amoxicillin 500 mg-potassium 1 tab PO BID #8 tabs 06/13/24 Rx clavulanate 125 mg tablet (Augmentin) furosemide 20 mg tablet 20 mg PO QAM #60 tabs 06/13/24 Rx metoprolol succinate 25 mg 37.5 mg (1.5 x 25 mg) PO BID #60 06/13/24 Rx tablet,extended release 24 hr tabs spironolactone 25 mg tablet 12.5 mg (1/2 x 25 mg) PO DAILY #30 06/13/24 Rx tabs Hospital Stay Data Consultations 06/09/24 10:01 ED Decision to Admit Stat 06/09/24 11:02 Consult Cardiology Routine 06/09/24 13:23 Consult Anesthesiology Routine Procedures Performed Operation Date: 06/10/24 07:30 Actual Procedures s Echo Color Flow - Guevara Driver MD s Cardioversion - Guevara Driver MD p Echo Transesophageal - Guevara Driver MD Diagnostic Imagining Performed 06/10/24 00:31 CT head/brain wo con Stat Pending Results Patient Have Any Pending Studies at Discharge: No Discharge Instructions Given to Patient (Per Discharging Provider) Please follow with your PCP within 1 week of discharge. Please follow with cardiology within 2 weeks of discharge. Take Lasix 40 mg over the next 3 days as your edema improves. Then can begin taking 20 mg daily. Your new medications have been sent over. You are being started on Entresto, Eliquis, Aldactone, Lasix, these are all heart medications. Return back to the ED with worsening symptoms. Follow-up with neurology as planned. Please continue taking your prior dose of Sinemet until follow-up. Total Time Total Time Spent Total Time Spent (In Minutes): 60
[2024-06-13 13:38] VITALS: BP 145/82; PULSE 59
[2024-06-14] MEDS ORDERED: FUROSEMIDE 40 MG TAB PO SCH (09:00)
== END 2024-06-13 14:36 | disposition home health service (06) | DRG 308 ==
LOC: ED 08:14 → SUATTDRO 10:10 → EDINP 10:10 → 2S 11:03